=== PATIENT | male | born 1955 | race Caucasian/White ===

== ENCOUNTER 2025-02-09 15:02 | Emergency (ER) | payer MEDICARE, SELFPAY ==
--- OUTSIDE RECORDS SUMMARY | 2025-02-09 15:07 | XMS_ITS | Encounter Summary ---
Author Organization [facility] Address [address] [place] [address] Care Team Providers Care Management Supervisor Name Role Phone Aston Charles Rock DO Primary Care Provider [phone] Encounter Details Date Type Department Care Team (Late st Contact Info) Description 04/03/2023 Lab Requisition [facility] Laboratory Services [address] [place] [address] Ileana Song MD [address] [place] [address] Social History Tobacco Use Types Packs/Day Years Used Date Smoking Tobacco: Former Cigarettes Q uit: 1998 Smokeless Tobacco: Former Snuff, Chew Alcohol Use Standard Drinks/Week Comments Yes 0 (1 standard drink = 0.6 oz pur e alcohol) socially maybe once a month Sex and Gender Information Value Date Recorded Sex Assigned at Not on file Legal Sex Male 3:17 AM FINANCE LEAD Gender Identity Not on file Sexual Orientation Not on file documented as of this encounter Plan of Treatment Not on file documented as of this encounter Procedures Procedure Name Priority Date/Time Associated Diagnosis Comments DIFFERENTIAL, MANUAL Routine 04/03/2023 4:00 AM CDT CBC WITH DIFFERENTIAL Routine 04/03/2023 4:00 AM CDT COMPREHENSIVE METABOLIC PANEL Routine 04/03/2023 4:00 AM CDT documented in this encounter Results * MANUAL DIFFERENTIAL (04/03/2023 4:00 AM CDT) Pathologist [facility] PLATELET EST. Adequate 04/03/2023 7:07 AM CDT [facility] ANISOCYTOSIS 2+ /hpf 04/03/2023 7:07 AM CDT [facility] POIKILOCYTES 1+ /hpf 04/03/2023 7:07 AM CDT [facility] POLYCHROMASIA 1+ /hpf 04/03/2023 7:07 AM CDT [facility] Blood 04/03/2023 4:00 AM CDT 04/03/2023 6:35 AM CDT us Ileana Song MD HEMATOLOGY ORDERABLES COM Final Result [facility] # [id number] [address] [place] [address] * (ABNORMAL) CBC WITH DIFFERENTIAL (04/03/2023 4:00 AM CDT) Pathologist [facility] WBC 8.9 4.8 - 10.8 K/uL 04/03/2023 7:07 AM T [facility] RBC 3.57(L) 4.60 - 6.20 M/uL 04/03/2023 7:07 AM T [facility] HEMOGLOBIN 10.2(L) 14.0 - 18.0 g/dL 04/03/2023 7:07 AM T [facility] HEMATOCRIT 34.8(L) 41.0 - 53.0 % 04/03/2023 7:07 AM T [facility] MCV 97.5 84.0 - 103.0 fL 04/03/2023 7:07 AM T [facility] MCH 28.6 27.0 - 34.0 pg 04/03/2023 7:07 AM T [facility] MCHC 29.3(L) 30.0 - 35.0 g/dL 04/03/2023 7:07 AM [email or web address] RDW 20.9(H) 11.0 - 14.5 % 04/03/2023 7:07 AM [email or web address] RDW-STDEV 75.1(H) 37.0 - 54.0 fL 04/03/2023 7:07 AM [email or web address] PLATELETS 298 140 - 440 K/uL 04/03/2023 7:07 AM [email or web address] MPV 11.1 8.9 - 12.8 fL 04/03/2023 7:07 AM [email or web address] NEUTROPHILS 82(H) 42 - 75 % 04/03/2023 7:07 AM [email or web address] LYMPHOCYTES 11(L) 24 - 44 % 04/03/2023 7:07 AM [email or web address] MONOCYTES 6 2 - 10 % 04/03/2023 7:07 AM [email or web address] EOSINOPHILS 0 0 - 7 % 04/03/2023 7:07 AM [email or web address] BASOPHILS 0 0 - 1 % 04/03/2023 7:07 AM [facility] IMMATURE GRANULOCYTES 1 0 - 2 % 04/03/2023 7:07 AM [facility] NEUTROPHIL ABSOLUTE 7.23 2.00 - 8.00 K/uL 04/03/2023 7:07 AM [email or web address] LYMPHOCYTE ABSOLUTE 0.97(L) 1.20 - 4.00 K/uL 04/03/2023 7:07 AM [email or web address] MONOCYTE ABSOLUTE 0.55 0.10 - 0.60 K/uL 04/03/2023 7:07 AM [facility] EOSINOPHIL ABSOLUTE 0.00 0.00 - 0.70 K/uL 04/03/2023 7:07 AM [facility] BASOPHILS ABSOLUTE 0.01 0.00 - 0.20 K/uL 04/03/2023 7:07 AM [facility] IMMATURE GRANULOCYTES ABSOLUTE 0.09 0.00 - 0.10 K/uL 04/03/2023 7:07 AM CDT [facility] Blood 04/03/2023 4:00 AM CDT 04/03/2023 6:35 AM CDT us Ileana Song MD HEMATOLOGY ORDERABLES Final Res ult [facility] CLIA # [id number] [facility] [address] [place] [address] * (ABNORMAL) COMPREHENSIVE METABOLIC PANEL (04/03/2023 4:00 AM CDT) SODIUM 141 136 - 145 mmol/L 04/03/2023 7:14 AM T [facility] POTASSIUM 3.5 3.5 - 5.1 mmol/L 04/03/2023 7:14 AM T [facility] CHLORIDE 101 98 - 107 mmol/L 04/03/2023 7:14 AM T [facility] CO2 28 22 - 29 mmol/L 04/03/2023 7:14 AM T [facility] CALCIUM 8.1(L) 8.8 - 10.2 mg/dL 04/03/2023 7:14 AM T [facility] BUN 27(H) 8 - 23 mg/dL 04/03/2023 7:14 AM T [facility] CREATININE 0.37(L) 0.67 - 1.17 mg/dL 04/03/2023 7:14 AM T [facility] GLUCOSE 248(H) 74 - 99 mg/dL 04/03/2023 7:14 AM T [facility] TOTAL PROTEIN 5.4(L) 6.4 - 8.3 g/dL 04/03/2023 7:14 AM T [facility] ALBUMIN 2.6(L) 3.5 - 5.2 g/dL 04/03/2023 7:14 AM T [facility] BILIRUBIN TOTAL 0.3 0.2 - 1.0 mg/dL 04/03/2023 7:14 AM CDT [facility] ALKALINE PHOSPHATASE 83 40 - 129 U/L 04/03/2023 7:14 AM CDT [facility] AST 20 10 - 50 U/L 04/03/2023 7:14 AM CDT [facility] ALT 47 <=50 U/L 04/03/2023 7:14 AM CDT [facility] GFR >60 >=60 mL/min/1. 73 sq meter 04/03/2023 7:14 AM CDT [facility] Comment:eGFR calculated with 2020 CKD-EPI equation. Vegetarian diet, extremely high or low muscle mass, and may affect results. Cystatin C with Glomerular Filtration Rate is a suitable alternative for these patients. ANION GAP 12 9 - 20 mmol/L 04/03/2023 7:14 AM T [facility] Blood 04/03/2023 4:00 AM CDT 04/03/2023 6:35 AM CDT us Ileana Song MD CHEMISTRY ORDERABLES Final Resu lt [facility] CLIA # [id number] [address] [place] [address] documented in this encounter Visit Diagnoses Not on filedocumented in this encounter Additional Health Concerns Infection Onset Date Last Indicated Resolved Time R/O C. diff 04/19/2023 04/19/2023 04/19/2023 3:44 AM CDT R/O COVID-19 07/09/2024 07/09/2024 07/09/2024 5:41 PM FINANCE LEAD R/O GI Pathogen 07/09/2024 07/09/2024 07/10/2024 8 :40 AM FINANCE LEAD C Diff 07/09/2024 07/09/2024 09/13/2024 1:16 AM FINANCE LEAD Multi Drug Resistant Organis m (MDRO) Comment:MDRO sputum 07/19/24 , negative MDRO sputum 09/08/24 ls 07/19/2024 07/19/2024 2:20 PM FINANCE LEAD R/O COVID-19 08/08/2024 08/08/2024 08/08/2024 3:12 AM FINANCE LEAD R/O COVID-19 09/07/2024 09/07/2024 09/07/2024 1:57 AM FINANCE LEAD Respiratory Syncytial Virus (RSV) 09/07/2024 025 09/21/2024 1:16 AM CDT R/O Respiratory 09/25/2024 09/25/2024 09/26/2024 1 :06 AM CDT Respiratory Syncytial Virus (RSV) 09/25/2024 025 10/17/2024 1:16 AM CDT [facility] Resistant Organis m (MDRO) Comment:10/03/24: Sputum (Pseudomonas aeruginosa) 10/03/2024 10/03/2024 PALEONTOLOGY TEACHER Comment:10/03/24: Sputum (Pseudomonas aeruginosa) 10/03/2024 10/07/2024 R/O Respiratory 11/28/2024 11/28/2024 11/28/2024 7 :05 AM CDT Respiratory Syncytial Virus (RSV) 11/28/2024 025 12/12/2024 1:16 AM CDT R/O GI Pathogen 12/13/2024 12/13/2024 12/14/2024 1 2:34 AM CDT documented as of this encounter Care Teams Management Supervisor Relationship Specialty Start Date End Date Charles Clancy DO [address] [place] [phone] PCP - General Family Practice 11/07/24 documented as of this encounter
--- OUTSIDE RECORDS SUMMARY | 2025-02-09 15:07 | XMS_ITS | Encounter Summary ---
Author Organization [facility] Address [address] [place] [address] Care Team Providers Care Environmental Health Manager Name Role Phone Charles Clancy DO Primary Care Provider [phone] Encounter Details Date Type Department Care Team (Late st Contact Info) Description 10/17/2024 Lab Requisition [facility] Laboratory Services [address] [place] [address] Hamilton Sheffield DO [address] [place] [address] Social History Tobacco Use Types Packs/Day Years Used Date Smoking Tobacco: Former Cigarettes 1 26 Q uit: 1998 Passive Smoke Exposure: Past Smokeless Tobacco: Former Snuff, Chew Quit: 1998 Alcohol Use Standard Drinks/Week Comments Not Currently 0 (1 standard drink = 0.6 oz pur e alcohol) socially maybe once a month Sex and Gender Information Value Date Recorded Sex Assigned at Not on file Legal Sex Male 3:17 AM TREATMENT TECHNICIAN Gender Identity Not on file Sexual Orientation Not on file documented as of this encounter Plan of Treatment Not on file documented as of this encounter Procedures Procedure Name Priority Date/Time Associated Diagnosis Comments CBC WITH DIFFERENTIAL Routine 10/17/2024 2:55 AM CDT COMPREHENSIVE METABOLIC PANEL Routine 10/17/2024 2:55 AM CDT documented in this encounter Results * (ABNORMAL) COMPREHENSIVE METABOLIC PANEL (10/17/2024 2:55 AM [facility] SODIUM 140 136 - 145 mmol/L 10/17/2024 6:49 AM [facility] POTASSIUM 4.1 3.5 - 5.1 mmol/L 10/17/2024 6:49 AM [facility] CHLORIDE 101 98 - 107 mmol/L 10/17/2024 6:49 AM [facility] CO2 27 22 - 29 mmol/L 10/17/2024 6:49 AM [facility] CALCIUM 9.6 8.8 - 10.2 mg/dL 10/17/2024 6:49 AM [facility] BUN 34(H) 8 - 23 mg/dL 10/17/2024 6:49 AM [facility] CREATININE 0.36(L) 0.67 - 1.17 mg/dL 10/17/2024 6:49 AM [facility] GLUCOSE 137(H) 74 - 99 mg/dL 10/17/2024 6:49 AM [facility] TOTAL PROTEIN 6.6 6.4 - 8.3 g/dL 10/17/2024 6:49 AM [facility] ALBUMIN 3.8 3.5 - 5.2 g/dL 10/17/2024 6:49 AM [facility] BILIRUBIN TOTAL 0.4 0.2 - 1.0 mg/dL 10/17/2024 6:49 AM [facility] ALKALINE PHOSPHATASE 97 40 - 129 U/L 10/17/2024 6:49 AM [facility] AST 25 10 - 50 U/L 10/17/2024 6:49 AM [facility] ALT 42 <=50 U/L 10/17/2024 6:49 AM [facility] GFR >60 >=60 mL/min/1. 73 sq meter 10/17/2024 6:49 AM [facility] Comment:eGFR calculated with 2020 CKD-EPI equation. Vegetarian diet, extremely high or low muscle mass, and may affect results. Cystatin C with Glomerular Filtration Rate is a suitable alternative for these patients. ANION GAP 12 9 - 20 mmol/L 10/17/2024 6:49 AM T [facility] Blood Collection / Unknown 10/17/2024 2:55 AM CDT 10/17/2024 5:49 AM CDT Hamilton Sheffield DO CHEMISTRY ORDERABLES Final R esult [facility] CLIA # [id number] [address] [place] [address] * (ABNORMAL) CBC WITH DIFFERENTIAL (10/17/2024 2:55 AM CDT) WBC 8.0 4.8 - 10.8 K/uL 10/17/2024 6:19 AM T [facility] RBC 5.19 4.60 - 6.20 M/uL 10/17/2024 6:19 AM T [facility] HEMOGLOBIN 13.6(L) 14.0 - 18.0 g/dL 10/17/2024 6:19 AM T [facility] HEMATOCRIT 45.0 41.0 - 53.0 % 10/17/2024 6:19 AM [facility] MCV 86.7 84.0 - 103.0 fL 10/17/2024 6:19 AM T [facility] MCH 26.2(L) 27.0 - 34.0 pg 10/17/2024 6:19 AM T [facility] MCHC 30.2 30.0 - 35.0 g/dL 10/17/2024 6:19 AM T [facility] PLATELETS 173 140 - 440 K/uL 10/17/2024 6:19 AM T [facility] MPV 12.8 8.9 - 12.8 fL 10/17/2024 6:19 AM [facility] RDW 17.6(H) 11.0 - 14.5 % 10/17/2024 6:19 AM [facility] RDW-STDEV 55.8(H) 37.0 - 54.0 fL 10/17/2024 6:19 AM T [facility] NEUTROPHILS 66 42 - 75 % 10/17/2024 6:19 AM [facility] LYMPHOCYTES 20(L) 24 - 44 % 10/17/2024 6:19 AM T [facility] MONOCYTES 10 2 - 10 % 10/17/2024 6:19 AM [facility] EOSINOPHILS 3 0 - 7 % 10/17/2024 6:19 AM [facility] BASOPHILS 1 0 - 1 % 10/17/2024 6:19 AM [facility] IMMATURE GRANULOCYTES 1 0 - 2 % 10/17/2024 6:19 AM [facility] NEUTROPHIL ABSOLUTE 5.25 2.00 - 8.00 K/uL 10/17/2024 6:19 AM [facility] LYMPHOCYTE ABSOLUTE 1.61 1.20 - 4.00 K/uL 10/17/2024 6:19 AM [facility] MONOCYTE ABSOLUTE 0.79(H) 0.10 - 0.60 K/uL 10/17/2024 6:19 AM [facility] EOSINOPHIL ABSOLUTE 0.24 0.00 - 0.70 K/uL 10/17/2024 6:19 AM [facility] BASOPHILS ABSOLUTE 0.06 0.00 - 0.20 K/uL 10/17/2024 6:19 AM [facility] IMMATURE GRANULOCYTES ABSOLUTE 0.06 0.00 - 0.10 K/uL 10/17/2024 6:19 AM [facility] SMEAR REVIEWED: NA - Not Applicable 10/17/2024 6:19 AM [facility] Blood Collection / Unknown 10/17/2024 2:55 AM CDT 10/17/2024 5:49 AM CDT us Hamilton Sheffield DO HEMATOLOGY ORDERABLES Final Result [facility] CLIA # [id number] [address] [facility] [place] [address] documented in this encounter Visit Diagnoses Not on filedocumented in this encounter Additional Health Concerns Infection Onset Date Last Indicated Resolved Time Respiratory Syncytial Virus (RSV) 09/25/2024 025 10/17/2024 1:16 AM CDT [facility] Resistant [facility] m (MDRO) Comment:10/03/24: Sputum (Pseudomonas aeruginosa) 10/03/2024 10/03/2024 TELEGRAPH PLANT MAINTAINER Comment:10/03/24: Sputum (Pseudomonas aeruginosa) 10/03/2024 10/07/2024 R/O Respiratory 11/28/2024 11/28/2024 11/28/2024 7 :05 AM CDT Respiratory Syncytial Virus (RSV) 11/28/2024 025 12/12/2024 1:16 AM CDT R/O GI Pathogen 12/13/2024 12/13/2024 12/14/2024 1 2:34 AM CDT documented as of this encounter Care Teams Environmental Health Manager Relationship Specialty Start Date End Date Charles Clancy DO [address] [place] [address] PCP - General Family Practice 11/07/24 documented as of this encounter
--- OUTSIDE RECORDS SUMMARY | 2025-02-09 15:07 | XMS_ITS | Encounter Summary ---
Author Organization [facility] Address [address] [place] [address] Care Team Providers Care Fruit Sprayer Name Role Phone Aston Charles Rock DO Primary Care Provider [phone] Encounter Details Date Type Department Care Team (Late st Contact Info) Description 03/28/[address] [facility] Laboratory Services [address] [place] [address] [place] [address] Ileana Song MD [address] [place] [address] Social History Tobacco Use Types Packs/Day Years Used Date Smoking Tobacco: Former Cigarettes Q uit: 1998 Smokeless Tobacco: Former Snuff, Chew Alcohol Use Standard Drinks/Week Comments Yes 0 (1 standard drink = 0.6 oz pur e alcohol) socially maybe once a month Sex and Gender Information Value Date Recorded Sex Assigned at Not on file Legal Sex Male 3:17 AM HOME STEREO EQUIPMENT INSTALLER Gender Identity Not on file Sexual Orientation Not on file documented as of this encounter Plan of Treatment Not on file documented as of this encounter Procedures Procedure Name Priority Date/Time Associated Diagnosis Comments SODIUM LEVEL Stat 03/28/2023 4:05 AM CDT documented in this encounter Results * (ABNORMAL) SODIUM LEVEL (03/28/2023 4:05 AM CDT) SODIUM 153(H) 136 - 145 mmol/L 03/28/2023 6:08 AM CDT [facility] Blood Collection / Unknown 03/28/2023 4:05 AM CDT 03/28/2023 5:42 AM CDT Ileana Song MD CHEMISTRY ORDERABLES Final Resu lt [facility] CLIA # [id number] [facility] [address] [place] [address] documented in this encounter Visit Diagnoses Not on filedocumented in this encounter Additional Health Concerns Infection Onset Date Last Indicated Resolved Time R/O C. diff 04/19/2023 04/19/2023 04/19/2023 3:44 AM CDT R/O COVID-19 07/09/2024 07/09/2024 07/09/2024 5:41 PM HOME STEREO EQUIPMENT INSTALLER R/O GI Pathogen 07/09/2024 07/09/2024 07/10/2024 8 :40 AM HOME STEREO EQUIPMENT INSTALLER C Diff 07/09/2024 07/09/2024 09/13/2024 1:16 AM HOME STEREO EQUIPMENT INSTALLER Multi Drug Resistant Organis m (MDRO) Comment:MDRO sputum 07/19/24 , negative MDRO sputum 09/08/24 ls 07/19/2024 07/19/2024 2:20 PM HOME STEREO EQUIPMENT INSTALLER R/O COVID-19 08/08/2024 08/08/2024 08/08/2024 3:12 AM HOME STEREO EQUIPMENT INSTALLER R/O COVID-19 09/07/2024 09/07/2024 09/07/2024 1:57 AM HOME STEREO EQUIPMENT INSTALLER Respiratory Syncytial Virus (RSV) 09/07/2024 025 09/21/2024 1:16 AM CDT R/O Respiratory 09/25/2024 09/25/2024 09/26/2024 1 :06 AM CDT Respiratory Syncytial Virus (RSV) 09/25/2024 025 10/17/2024 1:16 AM CDT [facility] Resistant [facility]is m (MDRO) Comment:10/03/24: Sputum (Pseudomonas aeruginosa) 10/03/2024 10/03/2024 GLOBAL ACCOUNT MANAGER Comment:10/03/24: Sputum (Pseudomonas aeruginosa) 10/03/2024 10/07/2024 R/O Respiratory 11/28/2024 11/28/2024 11/28/2024 7 :05 AM CDT Respiratory Syncytial Virus (RSV) 11/28/2024 025 12/12/2024 1:16 AM CDT R/O GI Pathogen 12/13/2024 12/13/2024 12/14/2024 1 2:34 AM CDT documented as of this encounter Care Teams Fruit Sprayer Relationship Specialty Start Date End Date Charles Clancy DO [address] [place] [phone] PCP - General Family Practice 11/07/24 documented as of this encounter
--- OUTSIDE RECORDS SUMMARY | 2025-02-09 15:07 | XMS_ITS | Encounter Summary ---
Author Organization [facility] Address [address] [place] [address] Care Team Providers Care Information Technology Architect Name Role Phone Aston Charles Rock DO Primary Care Provider Encounter Details Date Type Department Care Team (Late st Contact Info) Description 04/03/2023 Lab Requisition [facility] Laboratory Services [address] [place] [address] [place] [address] Ileana Song MD [address] [place] [address] Social History Tobacco Use Types Packs/Day Years Used Date Smoking Tobacco: Former Cigarettes Q uit: 1998 Smokeless Tobacco: Former Snuff, Chew Alcohol Use Standard Drinks/Week Comments Yes 0 (1 standard drink = 0.6 oz pur e alcohol) socially maybe once a month Sex and Gender Information Value Date Recorded Sex Assigned at Not on file Legal Sex Male 3:17 AM REPATCHER Gender Identity Not on file Sexual Orientation Not on file documented as of this encounter Plan of Treatment Not on file documented as of this encounter Procedures Procedure Name Priority Date/Time Associated Diagnosis Comments LACTIC ACID Stat 04/03/2023 8:30 PM CDT documented in this encounter Results * LACTIC ACID (04/03/2023 8:30 PM CDT) LACTIC ACID 1.9 <=2.0 mmol/L 04/03/2023 9:02 PM CDT [facility] [employer] [facility] Blood Collection / Unknown 04/03/2023 8:30 PM CDT 04/03/2023 8:40 PM CDT Ileana Song MD CHEMISTRY ORDERABLES Final Resu lt [facility] CLIA # [id number] [facility] [address] [address] [place] [address] documented in this encounter Visit Diagnoses Not on filedocumented in this encounter Additional Health Concerns Infection Onset Date Last Indicated Resolved Time R/O C. diff 04/19/2023 04/19/2023 04/19/2023 3:44 AM CDT R/O COVID-19 07/09/2024 07/09/2024 07/09/2024 5:41 PM REPATCHER R/O GI Pathogen 07/09/2024 07/09/2024 07/10/2024 8 :40 AM REPATCHER C Diff 07/09/2024 07/09/2024 09/13/2024 1:16 AM REPATCHER Multi Drug Resistant Organis m (MDRO) Comment:MDRO sputum 07/19/24 , negative MDRO sputum 09/08/24 ls 07/19/2024 07/19/2024 2:20 PM REPATCHER R/O COVID-19 08/08/2024 08/08/2024 08/08/2024 3:12 AM REPATCHER R/O COVID-19 09/07/2024 09/07/2024 09/07/2024 1:57 AM REPATCHER Respiratory Syncytial Virus (RSV) 09/07/2024 025 09/21/2024 1:16 AM CDT R/O Respiratory 09/25/2024 09/25/2024 09/26/2024 1 :06 AM CDT Respiratory Syncytial Virus (RSV) 09/25/2024 025 10/17/2024 1:16 AM CDT [facility]istant [facility] m (MDRO) Comment:10/03/24: Sputum (Pseudomonas aeruginosa) 10/03/2024 10/03/2024 SALES AGENT FOOD VENDING SERVICE Comment:10/03/24: Sputum (Pseudomonas aeruginosa) 10/03/2024 10/07/2024 R/O Respiratory 11/28/2024 11/28/2024 11/28/2024 7 :05 AM CDT Respiratory Syncytial Virus (RSV) 11/28/2024 025 12/12/2024 1:16 AM CDT R/O GI Pathogen 12/13/2024 12/13/2024 12/14/2024 1 2:34 AM CDT documented as of this encounter Care Teams Information Technology Architect Relationship Specialty Start Date End Date Charles Clancy DO [address] [place] [phone] PCP - General Family Practice 11/07/24 documented as of this encounter
--- OUTSIDE RECORDS SUMMARY | 2025-02-09 15:07 | XMS_ITS | Encounter Summary ---
Author Organization [facility] Address [address] [place] [address] Care Team Providers Care Collator Hand Name Role Phone [place] DO Primary Care Provider [phone] Encounter Details Date Type Department Care Team (Late st Contact Info) Description 04/03/2023 Lab Requisition [facility] Laboratory Services [address] [place] [address] [facility], External Provider [address] [place] [address] Social History Tobacco Use Types Packs/Day Years Used Date Smoking Tobacco: Former Cigarettes Q uit: 1998 Smokeless Tobacco: Former Snuff, Chew Alcohol Use Standard Drinks/Week Comments Yes 0 (1 standard drink = 0.6 oz pur e alcohol) socially maybe once a month Sex and Gender Information Value Date Recorded Sex Assigned at Not on file Legal Sex Male 3:17 AM ORACLE FUSION DEVELOPER Gender Identity Not on file Sexual Orientation Not on file documented as of this encounter Plan of Treatment Not on file documented as of this encounter Procedures Procedure Name Priority Date/Time Associated Diagnosis Comments EXTRA TUBE (URINE CALDERON) Routine 04/03/2023 3:30 PM CDT URINALYSIS WITH REFLEX CULTURE Routine 04/03/2023 3:30 PM CDT documented in this encounter Results * EXTRA TUBE (URINE CALDERON) (04/03/2023 3:30 PM CDT) Urine URINE SPECIMEN OBTAINED BY CLEAN CATCH PROCEDURE / Unknown Collection / Unknown 04/03/2023 3:30 PM CDT 04/03/2023 8:33 PM CDT us External Provider [facility] URINE ORDERABLES Final Res ult [facility] CLIA # [id number] Critical access hospital5 [address] [address] * (ABNORMAL) URINALYSIS WITH REFLEX CULTURE (04/03/2023 3:30 PM CDT) COLOR UA Yellow Pale to Dark Yellow 04/03/2023 9:02 PM CDT [facility] CLARITY UA Clear Clear 04/03/2023 9:02 PM CDT [facility] SPECIFIC GRAVITY UA 1.034 1.003 - 1.035 04/03/2023 9:02 PM T [facility] PH UA 5.5 5.0 - 8.0 04/03/2023 9:02 PM CDT [facility] LEUKOCYTE ESTERASE UA Negative Negative 04/03/2023 9:02 PM T [facility] NITRITE UA Negative Negative 04/03/2023 9:02 PM T [facility] PROTEIN UA 1+(A) Negative 04/03/2023 9:02 PM T [facility] GLUCOSE UA 4+(A) Negative 04/03/2023 9:02 PM T [facility] KETONES UA Negative Negative 04/03/2023 9:02 PM T [facility] UROBILINOGEN UA <2.0 <2.0 mg/dL 9:02 PM CDT [facility] BILIRUBIN UA Negative Negative 04/03/2023 9:02 PM T [facility] BLOOD UA Negative Negative 04/03/2023 9:02 PM T [facility] WBC UA 3-5(A) 0 - 2 /hpf 04/03/2023 9:02 PM CDT [facility] RBC UA 6-10(A) 0 - 2 /hpf 04/03/2023 9:02 PM CDT [facility] BACTERIA UA Negative Negative /hpf 04/03/2023 9:02 PM CDT [facility] EPITHELIAL CELLS, URINE 0-5 0 - 5 /hpf 04/03/2023 9:02 PM CDT [facility] Urine URINE SPECIMEN OBTAINED BY CLEAN CATCH PROCEDURE / Unknown Collection / Unknown 04/03/2023 3:30 PM CDT 04/03/2023 8:33 PM CDT us External Provider [facility] URINE ORDERABLES Final Res ult [facility] CLIA # [id number] Critical access hospital5 [address] [address] documented in this encounter Visit Diagnoses Not on filedocumented in this encounter Additional Health Concerns Infection Onset Date Last Indicated Resolved Time R/O C. diff 04/19/2023 04/19/2023 04/19/2023 3:44 AM CDT R/O COVID-19 07/09/2024 07/09/2024 07/09/2024 5:41 PM ORACLE FUSION DEVELOPER R/O GI Pathogen 07/09/2024 07/09/2024 07/10/2024 8 :40 AM ORACLE FUSION DEVELOPER C Diff 07/09/2024 07/09/2024 09/13/2024 1:16 AM ORACLE FUSION DEVELOPER Multi [facility] Resistant Organis m (MDRO) Comment:MDRO sputum 07/19/24 , negative MDRO sputum 09/08/24 ls 07/19/2024 07/19/2024 2:20 PM ORACLE FUSION DEVELOPER R/O COVID-19 08/08/2024 08/08/2024 08/08/2024 3:12 AM ORACLE FUSION DEVELOPER R/O COVID-19 09/07/2024 09/07/2024 09/07/2024 1:57 AM ORACLE FUSION DEVELOPER Respiratory Syncytial Virus (RSV) 09/07/2024 025 09/21/2024 1:16 AM CDT R/O Respiratory 09/25/2024 09/25/2024 09/26/2024 1 :06 AM CDT Respiratory Syncytial Virus (RSV) 09/25/2024 025 10/17/2024 1:16 AM CDT [facility] Resistant [facility]is m (MDRO) Comment:10/03/24: Sputum (Pseudomonas aeruginosa) 10/03/2024 10/03/2024 ROLLS BAKER Comment:10/03/24: Sputum (Pseudomonas aeruginosa) 10/03/2024 10/07/2024 R/O Respiratory 11/28/2024 11/28/2024 11/28/2024 7 :05 AM CDT Respiratory Syncytial Virus (RSV) 11/28/2024 025 12/12/2024 1:16 AM CDT R/O GI Pathogen 12/13/2024 12/13/2024 12/14/2024 1 2:34 AM CDT documented as of this encounter Care Teams Collator Hand Relationship Specialty Start Date End Date Charles Clancy DO [address] [place] [address] PCP - General Family Practice 11/07/24 documented as of this encounter
--- OUTSIDE RECORDS SUMMARY | 2025-02-09 15:07 | XMS_ITS | Encounter Summary ---
Author Organization [facility] Address [address] [place] [address] Care Team Providers Care Spa Coordinator Name Role Phone ClancyCharles DO Primary Care Provider [phone] Encounter Details Date Type Department Care Team (Late st Contact Info) Description 03/25/2023 Lab Requisition [facility] Laboratory Services [address] [place] [phone] Mark Sheffield MD [address] [place] [address] Social History Tobacco Use Types Packs/Day Years Used Date Smoking Tobacco: Former Cigarettes Q uit: 1998 Smokeless Tobacco: Former Snuff, Chew Alcohol Use Standard Drinks/Week Comments Yes 0 (1 standard drink = 0.6 oz pur e alcohol) socially maybe once a month Sex and Gender Information Value Date Recorded Sex Assigned at Not on file 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 Gender Identity Not on file Sexual Orientation Not on file documented as of this encounter Plan of Treatment Not on file documented as of this encounter Procedures Procedure Name Priority Date/Time Associated Diagnosis Comments DIFFERENTIAL, MANUAL Routine 03/25/2023 4:55 AM CDT CBC WITH DIFFERENTIAL Routine 03/25/2023 4:55 AM CDT PHOSPHORUS Routine 03/25/2023 4:55 AM CDT MAGNESIUM LEVEL Routine 03/25/2023 4:55 AM CDT COMPREHENSIVE METABOLIC PANEL Routine 03/25/2023 4:55 AM CDT documented in this encounter Results * MANUAL DIFFERENTIAL (03/25/2023 4:55 AM CDT) [facility] PLATELET EST. Decreased 03/25/2023 5:45 AM CDT [facility] ANISOCYTOSIS 2+ /hpf 03/25/2023 5:45 AM CDT [facility] POIKILOCYTES 1+ /hpf 03/25/2023 5:45 AM CDT [facility] POLYCHROMASIA 1+ /hpf 03/25/2023 5:45 AM CDT [facility] Blood Collection / Unknown 03/25/2023 4:55 AM CDT 03/25/2023 5:13 AM CDT us Mark Sheffield MD HEMATOLOGY ORDERABLES COM Final Result [facility] CLIA # [id number] [address] [place] [address] [place], [place] [address] * (ABNORMAL) CBC WITH DIFFERENTIAL (03/25/2023 4:55 AM CDT) [facility] WBC 4.1(L) 4.8 - 10.8 K/uL 03/25/2023 5:45 AM CDT [facility] NRBCS 1(H) <1 % 03/25/2023 5:45 AM CDT [facility] RBC 3.20(L) 4.60 - 6.20 M/uL 03/25/2023 5:45 AM CDT [facility] HEMOGLOBIN 9.2(L) 14.0 - 18.0 g/dL 03/25/2023 5:45 AM CDT [facility] HEMATOCRIT 32.0(L) 41.0 - 53.0 % 03/25/2023 5:45 AM [facility] MCV 100.0 84.0 - 103.0 fL 03/25/2023 5:45 AM [facility] MCH 28.8 27.0 - 34.0 pg 03/25/2023 5:45 AM [facility] MCHC 28.8(L) 30.0 - 35.0 g/dL 03/25/2023 5:45 AM [facility] RDW 23.2(H) 11.0 - 14.5 % 03/25/2023 5:45 AM [facility] RDW-STDEV 82.4(H) 37.0 - 54.0 fL 03/25/2023 5:45 AM [facility] PLATELETS 67(L) 140 - 440 K/uL 03/25/2023 5:45 AM [facility] MPV 11.5 8.9 - 12.8 fL 03/25/2023 5:45 AM [facility] [employer] [facility] NEUTROPHILS 85(H) 42 - 75 % 03/25/2023 5:45 AM [facility] LYMPHOCYTES 10(L) 24 - 44 % 03/25/2023 5:45 AM [facility] MONOCYTES 4 2 - 10 % 03/25/2023 5:45 AM [facility] [employer] [facility] EOSINOPHILS 0 0 - 7 % 03/25/2023 5:45 AM [facility] [employer] [facility] BASOPHILS 0 0 - 1 % 03/25/2023 5:45 AM [facility] IMMATURE GRANULOCYTES 1 0 - 2 % 03/25/2023 5:45 AM [facility] NEUTROPHIL ABSOLUTE 3.52 2.00 - 8.00 K/uL 03/25/2023 5:45 AM [facility] LYMPHOCYTE ABSOLUTE 0.42(L) 1.20 - 4.00 K/uL 03/25/2023 5:45 AM [facility] MONOCYTE ABSOLUTE 0.15 0.10 - 0.60 K/uL 03/25/2023 5:45 AM CDT [facility] EOSINOPHIL ABSOLUTE 0.01 0.00 - 0.70 K/uL 03/25/2023 5:45 AM CDT [facility] BASOPHILS ABSOLUTE 0.01 0.00 - 0.20 K/uL 03/25/2023 5:45 AM CDT [facility] IMMATURE GRANULOCYTES ABSOLUTE 0.03 0.00 - 0.10 K/uL 03/25/2023 5:45 AM CDT [facility] Blood Collection / Unknown 03/25/2023 4:55 AM CDT 03/25/2023 5:13 AM CDT Mark Sheffield MD HEMATOLOGY ORDERABLES Fin al Result Performing Organization Address [facility] Co de Phone Number [facility] CLIA # [id number] [address] [address] * (ABNORMAL) MAGNESIUM LEVEL (03/25/2023 4:55 AM CDT) MAGNESIUM 2.6(H) 1.6 - 2.4 mg/dL 03/25/2023 5:50 AM CDT [facility] Blood Collection / Unknown 03/25/2023 4:55 AM CDT 03/25/2023 5:13 AM CDT us Mark Sheffield MD CHEMISTRY ORDERABLES Saundra l Result Performing Organization Address [facility]/ZIP Co de Phone Number [facility] CLIA # [id number] [address] [place] [address] * PHOSPHORUS (03/25/2023 4:55 AM CDT) PHOSPHORUS 3.4 2.5 - 4.5 mg/dL 03/25/2023 5:50 AM CDT [facility] Blood Collection / Unknown 03/25/2023 4:55 AM CDT 03/25/2023 5:13 AM CDT us Mark Sheffield MD CHEMISTRY ORDERABLES Saundra dominguez Result [facility] CLIA # [id number] [address] [place] [address] [place] [address] * (ABNORMAL) COMPREHENSIVE METABOLIC PANEL (03/25/2023 4:55 AM CDT) SODIUM 156(H) 136 - 145 mmol/L 03/25/2023 5:50 AM CDT [facility] POTASSIUM 3.6 3.5 - 5.1 mmol/L 03/25/2023 5:50 AM CDT [facility] CHLORIDE 124(H) 98 - 107 mmol/L 03/25/2023 5:50 AM T [facility] CO2 23 22 - 29 mmol/L 03/25/2023 5:50 AM T [facility] CALCIUM 8.4(L) 8.8 - 10.2 mg/dL 03/25/2023 5:50 AM T [facility] BUN 30(H) 8 - 23 mg/dL 03/25/2023 5:50 AM T [facility] CREATININE 0.49(L) 0.67 - 1.17 mg/dL 03/25/2023 5:50 AM T [facility] GLUCOSE 182(H) 74 - 99 mg/dL 03/25/2023 5:50 AM T [facility] TOTAL PROTEIN 5.8(L) 6.4 - 8.3 g/dL 03/25/2023 5:50 AM T [facility] ALBUMIN 2.7(L) 3.5 - 5.2 g/dL 03/25/2023 5:50 AM CDT [facility] TOTAL 0.7 0.2 - 1.0 mg/dL 03/25/2023 5:50 AM CDT [facility] ALKALINE PHOSPHATASE 93 40 - 129 U/L 03/25/2023 5:50 AM CDT [facility] AST 67(H) 10 - 50 U/L 03/25/2023 5:50 AM CDT [facility] ALT 139(H) <=50 U/L 03/25/2023 5:50 AM CDT [facility] GFR >60 >=60 mL/min/1. 73 sq meter 03/25/2023 5:50 AM CDT [facility] Comment:eGFR calculated with 2020 CKD-EPI equation. Vegetarian diet, extremely high or low muscle mass, and may affect results. Cystatin C with Glomerular Filtration Rate is a suitable alternative for these patients. ANION GAP 9 9 - 20 mmol/L 03/25/2023 5:50 AM T [facility] Blood Collection / Unknown 03/25/2023 4:55 AM CDT 03/25/2023 5:13 AM CDT us Mark Sheffield MD CHEMISTRY ORDERABLES Saundra l Result [facility] CLIA # [id number] [address] [place] [id number] documented in this encounter Visit Diagnoses Not on filedocumented in this encounter Additional Health Concerns Infection Onset Date Last Indicated Resolved Time R/O C. diff 04/19/2023 04/19/2023 04/19/2023 3:44 AM CDT R/O COVID-19 07/09/2024 07/09/2024 07/09/2024 5:41 PM EDGE BURNISHER R/O GI Pathogen 07/09/2024 07/09/2024 07/10/2024 8 :40 AM EDGE BURNISHER C Diff 07/09/2024 07/09/2024 09/13/2024 1:16 AM EDGE BURNISHER Multi Drug Resistant Organis m (MDRO) Comment:MDRO sputum 07/19/24 , negative MDRO sputum 09/08/24 ls 07/19/2024 07/19/2024 2:20 PM EDGE BURNISHER R/O COVID-19 08/08/2024 08/08/2024 08/08/2024 3:12 AM EDGE BURNISHER R/O COVID-19 09/07/2024 09/07/2024 09/07/2024 1:57 AM EDGE BURNISHER Respiratory Syncytial Virus (RSV) 09/07/2024 025 09/21/2024 1:16 AM CDT R/O Respiratory 09/25/2024 09/25/2024 09/26/2024 1 :06 AM CDT Respiratory Syncytial Virus (RSV) 09/25/2024 025 10/17/2024 1:16 AM CDT [facility]istant [facility] m (MDRO) Comment:10/03/24: Sputum (Pseudomonas aeruginosa) 10/03/2024 10/03/2024 SOFT IRON INSPECTOR Comment:10/03/24: Sputum (Pseudomonas aeruginosa) 10/03/2024 10/07/2024 R/O Respiratory 11/28/2024 11/28/2024 11/28/2024 7 :05 AM CDT Respiratory Syncytial Virus (RSV) 11/28/2024 025 12/12/2024 1:16 AM CDT R/O GI Pathogen 12/13/2024 12/13/2024 12/14/2024 1 2:34 AM CDT documented as of this encounter Care Teams Spa Coordinator Relationship Specialty Start Date End Date Charles Clancy DO [address] [place] [address] PCP - General Family Practice 11/07/24 documented as of this encounter
--- OUTSIDE RECORDS SUMMARY | 2025-02-09 15:07 | XMS_ITS | Encounter Summary ---
Author Organization [facility] Address 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 Gender Identity Not on file Sexual Orientation Not on file documented as of this encounter Plan of Treatment Not on file documented as of this encounter Procedures Procedure Name Priority Date/Time Associated Diagnosis Comments TSH REFLEXIVE Routine 10/09/2024 4:00 AM CDT CBC WITH DIFFERENTIAL Routine 10/09/2024 4:00 AM CDT HEMOGLOBIN A1C Routine 10/09/2024 4:00 AM CDT COMPREHENSIVE METABOLIC PANEL Routine 10/09/2024 4:00 AM CDT documented in this encounter Results * (ABNORMAL) HEMOGLOBIN A1C (10/09/2024 4:00 AM CDT) Pathologist [facility] HEMOGLOBIN A1C 6.0(H) <=5.6 % 10/10/2024 10:54 AM CDT [facility] EST. AVG GLUCOSE, A1C 126 mg/dL 10/10/2024 10:54 AM CDT [facility] Blood Collection / Unknown 10/09/2024 4:00 AM CDT 10/09/2024 5:22 AM CDT Narrative [facility] - 10/10/2024 10:54 AM CDT HGB A1C INTERPRETATION NORMAL: <5.7% PRE-DIABETES: 5.7 - 6.4% DIABETES: 6.5% OR GREATER Hamilton Sheffield DO CHEMISTRY ORDERABLES Final R esult [facility] CLIA # [id number] [address] [place] [address] * (ABNORMAL) CBC WITH DIFFERENTIAL (10/09/2024 4:00 AM CDT) [facility] WBC 11.3(H) 4.8 - 10.8 K/uL 10/09/2024 5:34 AM CDT [facility] RBC 5.44 4.60 - 6.20 M/uL 10/09/2024 5:34 AM CDT [facility] HEMOGLOBIN 14.3 14.0 - 18.0 g/dL 10/09/2024 5:34 AM CDT [facility] HEMATOCRIT 47.6 41.0 - 53.0 % 10/09/2024 5:34 AM CDT [facility] MCV 87.5 84.0 - 103.0 fL 10/09/2024 5:34 AM CDT [facility] MCH 26.3(L) 27.0 - 34.0 pg 10/09/2024 5:34 AM [facility] MCHC 30.0 30.0 - 35.0 g/dL 10/09/2024 5:34 AM [facility] PLATELETS 221 140 - 440 K/uL 10/09/2024 5:34 AM [facility] MPV 11.7 8.9 - 12.8 fL 10/09/2024 5:34 AM [facility] RDW 19.2(H) 11.0 - 14.5 % 10/09/2024 5:34 AM [facility] RDW-STDEV 58.1(H) 37.0 - 54.0 fL 10/09/2024 5:34 AM [facility] NEUTROPHILS 71 42 - 75 % 10/09/2024 5:34 AM [facility] LYMPHOCYTES 16(L) 24 - 44 % 10/09/2024 5:34 AM [facility] MONOCYTES 8 2 - 10 % 10/09/2024 5:34 AM [facility] EOSINOPHILS 3 0 - 7 % 10/09/2024 5:34 AM [facility] BASOPHILS 1 0 - 1 % 10/09/2024 5:34 AM [facility] IMMATURE GRANULOCYTES 2 0 - 2 % 10/09/2024 5:34 AM [facility] NEUTROPHIL ABSOLUTE 8.01(H) 2.00 - 8.00 K/uL 10/09/2024 5:34 AM [facility] LYMPHOCYTE ABSOLUTE 1.75 1.20 - 4.00 K/uL 10/09/2024 5:34 AM [facility] MONOCYTE ABSOLUTE 0.89(H) 0.10 - 0.60 K/uL 10/09/2024 5:34 AM [facility] EOSINOPHIL ABSOLUTE 0.33 0.00 - 0.70 K/uL 10/09/2024 5:34 AM CDT [facility] BASOPHILS ABSOLUTE 0.07 0.00 - 0.20 K/uL 10/09/2024 5:34 AM CDT [facility] IMMATURE GRANULOCYTES ABSOLUTE 0.20(H) 0.00 - 0.10 K/uL 10/09/2024 5:34 AM T [facility] SMEAR REVIEWED: NN - No Action Needed 10/09/2024 5:34 AM T [facility] Blood Collection / Unknown 10/09/2024 4:00 AM CDT 10/09/2024 5:22 AM CDT us Hamilton Sheffield DO HEMATOLOGY ORDERABLES Final Result [facility] CLIA # [id number] [address] [place] [address] * (ABNORMAL) COMPREHENSIVE METABOLIC PANEL (10/09/2024 4:00 AM CDT) SODIUM 144 136 - 145 mmol/L 10/09/2024 6:23 AM [facility] POTASSIUM 3.6 3.5 - 5.1 mmol/L 10/09/2024 6:23 AM [facility] CHLORIDE 105 98 - 107 mmol/L 10/09/2024 6:23 AM [facility] CO2 26 22 - 29 mmol/L 10/09/2024 6:23 AM T [facility] CALCIUM 9.8 8.8 - 10.2 mg/dL 10/09/2024 6:23 AM T [facility] BUN 33(H) 8 - 23 mg/dL 10/09/2024 6:23 AM T [facility] CREATININE 0.42(L) 0.67 - 1.17 mg/dL 10/09/2024 6:23 AM T [facility] GLUCOSE 172(H) 74 - 99 mg/dL 10/09/2024 6:23 AM [facility] TOTAL PROTEIN 7.0 6.4 - 8.3 g/dL 10/09/2024 6:23 AM [facility] ALBUMIN 3.8 3.5 - 5.2 g/dL 10/09/2024 6:23 AM [facility] BILIRUBIN TOTAL 0.3 0.2 - 1.0 mg/dL 10/09/2024 6:23 AM [facility] ALKALINE PHOSPHATASE 113 40 - 129 U/L 10/09/2024 6:23 AM [facility] AST 46 10 - 50 U/L 10/09/2024 6:23 AM [facility] ALT 64(H) <=50 U/L 10/09/2024 6:23 AM [facility] GFR >60 >=60 mL/min/1. 73 sq meter 10/09/2024 6:23 AM [facility] Comment:eGFR calculated with 2020 CKD-EPI equation. Vegetarian diet, extremely high or low muscle mass, and may affect results. Cystatin C with Glomerular Filtration Rate is a suitable alternative for these patients. ANION GAP 13 9 - 20 mmol/L 10/09/2024 6:23 AM [facility] Blood Collection / Unknown 10/09/2024 4:00 AM CDT 10/09/2024 5:22 AM CDT Hamilton Sheffield DO CHEMISTRY ORDERABLES Final R esult [facility] CLIA # [id number] [address] [place] [address] * TSH REFLEXIVE (10/09/2024 4:00 AM CDT) TSH 1.28 0.27 - 4.20 uIU/mL 10/09/2024 6:29 AM T [facility] Blood Collection / Unknown 10/09/2024 4:00 AM CDT 10/09/2024 5:22 AM CDT us Hamilton Sheffield DO CHEMISTRY ORDERABLES Final R esult [facility] CLIA # [id number] [address] [address] [place] [address] documented in this encounter Visit Diagnoses Not on filedocumented in this encounter Additional Health Concerns Infection Onset Date Last Indicated Resolved Time Respiratory Syncytial Virus (RSV) 09/25/2024 025 10/17/2024 1:16 AM CDT 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
--- OUTSIDE RECORDS SUMMARY | 2025-02-09 15:07 | XMS_ITS | Encounter Summary ---
Author Organization [facility] Address [address] [place] [address] Care Team Providers Care All Round Logger Name Role Phone [place] DO Primary Care Provider [phone] Encounter Details Date Type Department Care Team (Late st Contact Info) Description 03/28/2023 Lab Requisition [facility] [address] [place] [address] Ileana Song MD [address] [place] [address] Social History Tobacco Use Types Packs/Day Years Used Date Smoking Tobacco: Former Cigarettes Q uit: 1998 Smokeless Tobacco: Former Snuff, Chew Alcohol Use Standard Drinks/Week Comments Yes 0 (1 standard drink = 0.6 oz pur e alcohol) socially maybe once a month Sex and Gender Information Value Date Recorded Sex Assigned at Not on file Legal Sex Male 3:17 AM [employer] Gender Identity Not on file Sexual Orientation Not on file documented as of this encounter Plan of Treatment Not on file documented as of this encounter Procedures Procedure Name Priority Date/Time Associated Diagnosis Comments SODIUM LEVEL Routine 03/28/2023 4:00 PM CDT documented in this encounter Results * (ABNORMAL) SODIUM LEVEL (03/28/2023 4:00 PM CDT) SODIUM 148(H) 136 - 145 mmol/L 03/28/2023 6:16 PM CDT [facility] Blood Collection / Unknown 03/28/2023 4:00 PM CDT 03/28/2023 6:07 PM CDT Ileana Song MD CHEMISTRY ORDERABLES Final Resu lt [facility] CLIA # [id number] [facility] [address] [address] [place] [address] documented in this encounter Visit Diagnoses Not on filedocumented in this encounter Additional Health Concerns Infection Onset Date Last Indicated Resolved Time R/O C. diff 04/19/2023 04/19/2023 04/19/2023 3:44 AM CDT R/O COVID-19 07/09/2024 07/09/2024 07/09/2024 5:41 PM ADOBE MA[employer]ER R/O GI Pathogen 07/09/2024 07/09/2024 07/10/2024 8 :40 AM ADOBE MAKER C Diff 07/09/2024 07/09/2024 09/13/2024 1:1 6 AM [employer]OBE MAKER [facility] ([facility]) Comment:[facility] sputum 07/19/24 , negative MDRO sputum 09/08/24 ls 07/19/2024 07/19/2024 2:20 PM ADOBE MAKER R/O COVID-19 08/08/2024 08/08/2024 08/08/2024 3:12 AM ADOBE MAKER R/O COVID-19 09/07/2024 09/07/2024 09/07/2024 1:57 AM ADOBE MAKER Respiratory Syncytial Virus (RSV) 09/07/2024 025 09/21/2024 1:16 AM CDT R/O Respiratory 09/25/2024 09/25/2024 09/26/2024 1 :06 AM CDT Respiratory Syncytial Virus (RSV) 09/25/2024 025 10/17/2024 1:16 AM CDT [facility] ([facility]) Comment:10/03/24: Sputum (Pseudomonas aeruginosa) 10/03/2024 10/03/2024 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
--- OUTSIDE RECORDS SUMMARY | 2025-02-09 15:07 | XMS_ITS | Encounter Summary ---
Author Organization [facility] Address [address] [place] [address] Care Team Providers Care Environmental Programs Specialist Name Role Phone [place] DO Primary Care Provider [phone] Encounter Details Date Type Department Care Team (Late st Contact Info) Description 03/27/2023 Lab Requisition [facility] Laboratory Services [address] [place] [address] Ileana Song MD [address] [place] [address] Social History Tobacco Use Types Packs/Day Years Used Date Smoking Tobacco: Former Cigarettes Q uit: 1998 Smokeless Tobacco: Former Snuff, Chew Alcohol Use Standard Drinks/Week Comments Yes 0 (1 standard drink = 0.6 oz pur e alcohol) socially maybe once a month Sex and Gender Information Value Date Recorded Sex Assigned at Not on file 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 Gender Identity Not on file Sexual Orientation Not on file documented as of this encounter Plan of Treatment Not on file documented as of this encounter Procedures Procedure Name Priority Date/Time Associated Diagnosis Comments SODIUM LEVEL Stat 03/27/2023 10:50 PM CDT documented in this encounter Results * (ABNORMAL) SODIUM LEVEL (03/27/2023 10:50 PM CDT) SODIUM 154(H) 136 - 145 mmol/L 03/28/2023 12:00 AM CDT [facility] LABORATORY SERVICES [facility] Blood Collection / Unknown 03/27/2023 10:50 PM CDT 03/27/2023 11:35 PM CDT Ileana Song MD CHEMISTRY ORDERABLES Final Resu lt [facility] CLIA # [id number] [facility] [address] [place] [address] documented in this encounter Visit Diagnoses Not on filedocumented in this encounter Additional Health Concerns Infection Onset Date Last Indicated Resolved Time R/O C. diff 04/19/2023 04/19/2023 04/19/2023 3:44 AM CDT R/O COVID-19 07/09/2024 07/09/2024 07/09/2024 5:41 PM MACHINE PIE MAKER R/O GI Pathogen 07/09/2024 07/09/2024 07/10/2024 8 :40 AM MACHINE PIE MAKER C Diff 07/09/2024 07/09/2024 09/13/2024 1:16 AM MACHINE PIE MAKER Multi Drug Resistant Organis m (MDRO) Comment:MDRO sputum 07/19/24 , negative MDRO sputum 09/08/24 ls 07/19/2024 07/19/2024 2:20 PM MACHINE PIE MAKER R/O COVID-19 08/08/2024 08/08/2024 08/08/2024 3:12 AM MACHINE PIE MAKER R/O COVID-19 09/07/2024 09/07/2024 09/07/2024 1:57 AM MACHINE PIE MAKER Respiratory Syncytial Virus (RSV) 09/07/2024 025 09/21/2024 1:16 AM CDT R/O Respiratory 09/25/2024 09/25/2024 09/26/2024 1 :06 AM CDT Respiratory Syncytial Virus (RSV) 09/25/2024 025 10/17/2024 1:16 AM CDT Multi Drug Resistant Organis m (MDRO) Comment:10/03/24: Sputum (Pseudomonas aeruginosa) 10/03/2024 10/03/2024 DIRECTOR OF REHABILITATIVE SERVICES Comment:10/03/24: Sputum (Pseudomonas aeruginosa) 10/03/2024 10/07/2024 R/O Respiratory 11/28/2024 11/28/2024 11/28/2024 7 :05 AM CDT Respiratory Syncytial Virus (RSV) 11/28/2024 025 12/12/2024 1:16 AM CDT R/O GI Pathogen 12/13/2024 12/13/2024 12/14/2024 1 2:34 AM CDT documented as of this encounter Care Teams Environmental Programs Specialist Relationship Specialty Start Date End Date Charles Clancy DO [address] [place] [phone] PCP - General Family Practice 11/07/24 documented as of this encounter
--- OUTSIDE RECORDS SUMMARY | 2025-02-09 15:07 | XMS_ITS | Encounter Summary ---
Author Organization [facility] Address 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 Gender Identity Not on file Sexual Orientation Not on file documented as of this encounter Plan of Treatment Not on file documented as of this encounter Procedures Procedure Name Priority Date/Time Associated Diagnosis Comments CBC WITH DIFFERENTIAL Routine 10/14/2024 3:30 AM CDT COMPREHENSIVE METABOLIC PANEL Routine 10/14/2024 3:30 AM CDT documented in this encounter Results * (ABNORMAL) CBC WITH DIFFERENTIAL (10/14/2024 3:30 AM CDT) [facility] WBC 8.4 4.8 - 10.8 K/uL 10/14/2024 6:07 AM [facility] RBC 5.40 4.60 - 6.20 M/uL 10/14/2024 6:07 AM [facility] HEMOGLOBIN 13.9(L) 14.0 - 18.0 g/dL 10/14/2024 6:07 AM [facility] HEMATOCRIT 45.2 41.0 - 53.0 % 10/14/2024 6:07 AM [facility] MCV 83.7(L) 84.0 - 103.0 fL 10/14/2024 6:07 AM [facility] MCH 25.7(L) 27.0 - 34.0 pg 10/14/2024 6:07 AM [facility] MCHC 30.8 30.0 - 35.0 g/dL 10/14/2024 6:07 AM [facility] PLATELETS 189 140 - 440 K/uL 10/14/2024 6:07 AM [facility] MPV 12.0 8.9 - 12.8 fL 10/14/2024 6:07 AM [facility] RDW 18.1(H) 11.0 - 14.5 % 10/14/2024 6:07 AM [facility] RDW-STDEV 53.5 37.0 - 54.0 fL 10/14/2024 6:07 AM [facility] NEUTROPHILS 69 42 - 75 % 10/14/2024 6:07 AM [facility] LYMPHOCYTES 19(L) 24 - 44 % 10/14/2024 6:07 AM [facility] MONOCYTES 9 2 - 10 % 10/14/2024 6:07 AM T [facility] EOSINOPHILS 1 0 - 7 % 10/14/2024 6:07 AM T [facility] BASOPHILS 1 0 - 1 % 10/14/2024 6:07 AM CDT [facility] IMMATURE GRANULOCYTES 1 0 - 2 % 10/14/2024 6:07 AM CDT [facility] NEUTROPHIL ABSOLUTE 5.75 2.00 - 8.00 K/uL 10/14/2024 6:07 AM CDT [facility] LYMPHOCYTE ABSOLUTE 1.59 1.20 - 4.00 K/uL 10/14/2024 6:07 AM CDT [facility] MONOCYTE ABSOLUTE 0.79(H) 0.10 - 0.60 K/uL 10/14/2024 6:07 AM CDT [facility] EOSINOPHIL ABSOLUTE 0.10 0.00 - 0.70 K/uL 10/14/2024 6:07 AM CDT [facility] BASOPHILS ABSOLUTE 0.07 0.00 - 0.20 K/uL 10/14/2024 6:07 AM CDT [facility] IMMATURE GRANULOCYTES ABSOLUTE 0.06 0.00 - 0.10 K/uL 10/14/2024 6:07 AM T [facility] SMEAR REVIEWED: NA - Not Applicable 10/14/2024 6:07 AM [facility] Blood Collection / Unknown 10/14/2024 3:30 AM CDT 10/14/2024 5:57 AM CDT Hamilton Sheffield DO HEMATOLOGY ORDERABLES Final Result Performing Organization Address City/State/[facility] Co de Phone Number [facility] CLIA # [id number] [address] [place] [address] * (ABNORMAL) COMPREHENSIVE METABOLIC PANEL (10/14/2024 3:30 AM CDT) Pathologist [facility] SODIUM 142 136 - 145 mmol/L 10/14/2024 6:30 AM CDT [facility] POTASSIUM 3.6 3.5 - 5.1 mmol/L 10/14/2024 6:30 AM CDT [facility] CHLORIDE 102 98 - 107 mmol/L 10/14/2024 6:30 AM [facility] CO2 28 22 - 29 mmol/L 10/14/2024 6:30 AM [facility] CALCIUM 9.7 8.8 - 10.2 mg/dL 10/14/2024 6:30 AM [facility] BUN 29(H) 8 - 23 mg/dL 10/14/2024 6:30 AM [facility] CREATININE 0.38(L) 0.67 - 1.17 mg/dL 10/14/2024 6:30 AM [facility] GLUCOSE 138(H) 74 - 99 mg/dL 10/14/2024 6:30 AM [facility] TOTAL PROTEIN 6.6 6.4 - 8.3 g/dL 10/14/2024 6:30 AM [facility] ALBUMIN 3.8 3.5 - 5.2 g/dL 10/14/2024 6:30 AM [facility] BILIRUBIN TOTAL 0.5 0.2 - 1.0 mg/dL 10/14/2024 6:30 AM [facility] ALKALINE PHOSPHATASE 104 40 - 129 U/L 10/14/2024 6:30 AM [facility] AST 31 10 - 50 U/L 10/14/2024 6:30 AM [facility] ALT 56(H) <=50 U/L 10/14/2024 6:30 AM [facility] GFR >60 >=60 mL/min/1. 73 sq meter 10/14/2024 6:30 AM [facility] Comment:eGFR calculated with 2020 CKD-EPI equation. Vegetarian diet, extremely high or low muscle mass, and may affect results. Cystatin C with Glomerular Filtration Rate is a suitable alternative for these patients. 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
--- OUTSIDE RECORDS SUMMARY | 2025-02-09 15:07 | XMS_ITS | Encounter Summary ---
Author Organization [facility] Address [address] [place] [address] Care Team Providers Care Imagery Intelligence Name Role Phone [place] Rock DO Primary Care Provider [phone] Encounter Details Date Type Department Care Team (Late st Contact Info) Description 03/27/2023 Lab Requisition [facility] Laboratory Services [address] [place] [address] Ileana Song MD [address] [place] [address] Social History Tobacco Use Types Packs/Day Years Used Date Smoking Tobacco: Former Cigarettes Q uit: 1998 Smokeless Tobacco: Former Snuff, Chew Alcohol Use Standard Drinks/Week Comments Yes 0 (1 standard drink = 0.6 oz pur e alcohol) socially maybe once a month Sex and Gender Information Value Date Recorded Sex Assigned at Not on file 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 Gender Identity Not on file Sexual Orientation Not on file documented as of this encounter Plan of Treatment Not on file documented as of this encounter Procedures Procedure Name Priority Date/Time Associated Diagnosis Comments SODIUM LEVEL Routine 03/27/2023 7:47 PM CDT documented in this encounter Results * (ABNORMAL) SODIUM LEVEL (03/27/2023 7:47 PM CDT) SODIUM 156(H) 136 - 145 mmol/L 03/27/2023 8:51 PM CDT [facility] Blood Collection / Unknown 03/27/2023 7:47 PM CDT 03/27/2023 8:39 PM CDT Ileana Song MD CHEMISTRY ORDERABLES Final Resu lt [facility] CLIA # [id number] [facility] [address] [place] [address] documented in this encounter Visit Diagnoses Not on filedocumented in this encounter Additional Health Concerns Infection Onset Date Last Indicated Resolved Time R/O C. 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:MDRO sputum 07/19/24 , negative MDRO sputum 09/08/24 ls 07/19/2024 07/19/2024 2:20 PM BI APPLICATION DEVELOPER R/O COVID-19 08/08/2024 08/08/2024 08/08/2024 3:12 AM BI APPLICATION DEVELOPER R/O COVID-19 09/07/2024 09/07/2024 09/07/2024 1:57 AM BI APPLICATION DEVELOPER Respiratory Syncytial Virus (RSV) 09/07/2024 025 09/21/2024 1:16 AM CDT R/O Respiratory 09/25/2024 09/25/2024 09/26/2024 1 :06 AM CDT Respiratory Syncytial Virus (RSV) 09/25/2024 025 10/17/2024 1:16 AM CDT 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
--- OUTSIDE RECORDS SUMMARY | 2025-02-09 15:07 | XMS_ITS | Encounter Summary ---
Author Organization [facility] Address [address] [place] [address] Care Team Providers Care Child Therapist Name Role Phone Charles Clancy DO Primary Care Provider [phone] Encounter Details Date Type Department Care Team (Late st Contact Info) Description 10/10/[address] 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 WBC 12.4(H) 4.8 - 10.8 K/uL 10/10/2024 6:00 AM [facility] RBC 5.51 4.60 - 6.20 M/uL 10/10/2024 6:00 AM [facility] HEMOGLOBIN 14.1 14.0 - 18.0 g/dL 10/10/2024 6:00 AM [facility] HEMATOCRIT 47.3 41.0 - 53.0 % 10/10/2024 6:00 AM [facility] MCV 85.8 84.0 - 103.0 fL 10/10/2024 6:00 AM [facility] MCH 25.6(L) 27.0 - 34.0 pg 10/10/2024 6:00 AM [facility] MCHC 29.8(L) 30.0 - 35.0 g/dL 10/10/2024 6:00 AM [facility] PLATELETS 232 140 - 440 K/uL 10/10/2024 6:00 AM [facility] MPV 11.8 8.9 - 12.8 fL 10/10/2024 6:00 AM [facility] RDW 18.7(H) 11.0 - 14.5 % 10/10/2024 6:00 AM [facility] RDW-STDEV 56.9(H) 37.0 - 54.0 fL 10/10/2024 6:00 AM [facility] NEUTROPHILS 75 42 - 75 % 10/10/2024 6:00 AM [facility] LYMPHOCYTES 14(L) 24 - 44 % 10/10/2024 6:00 AM [facility] MONOCYTES 7 2 - 10 % 10/10/2024 6:00 AM [facility] EOSINOPHILS 3 0 - 7 % 10/10/2024 6:00 AM [facility] BASOPHILS 1 0 - 1 % 10/10/2024 6:00 AM CDT [facility] IMMATURE GRANULOCYTES 1 0 - 2 % 10/10/2024 6:00 AM CDT [facility] NEUTROPHIL ABSOLUTE 9.33(H) 2.00 - 8.00 K/uL 10/10/2024 6:00 AM CDT [facility] LYMPHOCYTE ABSOLUTE 1.71 1.20 - 4.00 K/uL 10/10/2024 6:00 AM CDT [facility] MONOCYTE ABSOLUTE 0.91(H) 0.10 - 0.60 K/uL 10/10/2024 6:00 AM CDT [facility] EOSINOPHIL ABSOLUTE 0.31 0.00 - 0.70 K/uL 10/10/2024 6:00 AM CDT [facility] BASOPHILS ABSOLUTE 0.07 0.00 - 0.20 K/uL 10/10/2024 6:00 AM CDT [facility] IMMATURE GRANULOCYTES ABSOLUTE 0.11(H) 0.00 - 0.10 K/uL 10/10/2024 6:00 AM T [facility] SMEAR REVIEWED: NA - Not Applicable 10/10/2024 6:00 AM [facility] Blood Collection / Unknown 10/10/2024 3:15 AM CDT 10/10/2024 5:50 AM CDT Hamilton Sheffield DO HEMATOLOGY ORDERABLES Final Result [facility] CLIA # [id number] [address] [place] [address] [place] [address] * (ABNORMAL) COMPREHENSIVE METABOLIC PANEL (10/10/2024 3:15 AM CDT) SODIUM 144 136 - 145 mmol/L 10/10/2024 6:27 AM CDT [facility] POTASSIUM 3.6 3.5 - 5.1 mmol/L 10/10/2024 6:27 AM CDT [facility] CHLORIDE 104 98 - 107 mmol/L 10/10/2024 6:27 AM [facility] CO2 28 22 - 29 mmol/L 10/10/2024 6:27 AM [facility] CALCIUM 10.0 8.8 - 10.2 mg/dL 10/10/2024 6:27 AM [facility] BUN 37(H) 8 - 23 mg/dL 10/10/2024 6:27 AM [facility] CREATININE 0.38(L) 0.67 - 1.17 mg/dL 10/10/2024 6:27 AM [facility] GLUCOSE 164(H) 74 - 99 mg/dL 10/10/2024 6:27 AM [facility] TOTAL PROTEIN 7.1 6.4 - 8.3 g/dL 10/10/2024 6:27 AM [facility] ALBUMIN 3.9 3.5 - 5.2 g/dL 10/10/2024 6:27 AM [facility] BILIRUBIN TOTAL 0.3 0.2 - 1.0 mg/dL 10/10/2024 6:27 AM [facility] ALKALINE PHOSPHATASE 116 40 - 129 U/L 10/10/2024 6:27 AM [facility] AST 47 10 - 50 U/L 10/10/2024 6:27 AM [facility] ALT 69(H) <=50 U/L 10/10/2024 6:27 AM [facility] GFR >60 >=60 mL/min/1. 73 sq meter 10/10/2024 6:27 AM [facility] Comment:eGFR calculated with 2020 CKD-EPI equation. Vegetarian diet, extremely high or low muscle mass, and may affect results. Cystatin C with Glomerular Filtration Rate is a suitable alternative for these patients. ANION GAP 12 9 - 20 mmol/L 10/10/2024 6:27 AM [facility] Blood Collection / Unknown 10/10/2024 3:15 AM CDT 10/10/2024 5:50 AM CDT us Hamilton Sheffield DO CHEMISTRY ORDERABLES Final R esult [facility] CLIA # [id number] [address] [facility] [place] [address] documented in this encounter Visit Diagnoses Not on filedocumented in this encounter Additional Health Concerns Infection Onset Date Last Indicated Resolved Time Respiratory Syncytial Virus (RSV) 09/25/2024 025 10/17/2024 1:16 AM CDT 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
--- OUTSIDE RECORDS SUMMARY | 2025-02-09 15:07 | XMS_ITS | Encounter Summary ---
Author Organization [facility] Address 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 Gender Identity Not on file Sexual Orientation Not on file documented as of this encounter Plan of Treatment Not on file documented as of this encounter Procedures Procedure Name Priority Date/Time Associated Diagnosis Comments URINALYSIS WITH REFLEX CULTURE Routine 10/11/2024 10:00 PM CDT documented in this encounter Results * (ABNORMAL) URINALYSIS WITH REFLEX CULTURE (10/11/2024 10:00 PM CDT) COLOR UA Yellow Pale to Dark Yellow 10/11/2024 10:37 PM CDT [facility] CLARITY UA Clear Clear 10/11/2024 10:37 PM CDT [facility] SPECIFIC GRAVITY UA 1.021 1.003 - 1.035 10/11/2024 10:37 PM CDT [facility] PH UA 7.5 5.0 - 8.0 10/11/2024 10:37 PM CDT [facility] LEUKOCYTE ESTERASE UA Negative Negative 10/11/2024 10:37 PM CDT [facility] NITRITE UA Negative Negative 10/11/2024 10:37 PM CDT [facility] PROTEIN UA 1+(A) Negative 10/11/2024 10:37 PM CDT [facility] GLUCOSE UA Negative Negative 10/11/2024 10:37 PM CDT [facility] KETONES UA Negative Negative 10/11/2024 10:37 PM T [facility] UROBILINOGEN UA <2.0 <2.0 mg/dL 10:37 PM CDT [facility] BILIRUBIN UA Negative Negative 10/11/2024 10:37 PM CDT [facility] BLOOD UA Negative Negative 10/11/2024 10:37 PM T [facility] WBC UA 3-5(A) 0 - 2 /hpf 10/11/2024 10:37 PM T [facility] RBC UA 3-5(A) 0 - 2 /hpf 10/11/2024 10:37 PM CDT [facility] BACTERIA UA 1+(A) Negative /hpf 10/11/2024 10:37 PM T [facility] Urine URINE SPECIMEN OBTAINED BY CLEAN CATCH PROCEDURE / Unknown Collection / Unknown 10/11/2024 10:00 PM CDT 10/11/2024 10:25 PM CDT Hamilton Sheffield DO URINE ORDERABLES Final Resul t [facility] CLIA # [id number] [address] [facility] [place] [address] documented in this encounter Visit Diagnoses Not on filedocumented in this encounter Additional Health Concerns Infection Onset Date Last Indicated Resolved Time Respiratory Syncytial Virus (RSV) 09/25/2024 025 10/17/2024 1:16 AM CDT [facility]istant [facility] m (MDRO) Comment:10/03/24: Sputum (Pseudomonas aeruginosa) 10/03/2024 10/03/2024 IT APPLICATION SUPPORT ANALYST Comment:10/03/24: Sputum (Pseudomonas aeruginosa) 10/03/2024 10/07/2024 R/O Respiratory 11/28/2024 11/28/2024 11/28/2024 7 :05 AM CDT Respiratory Syncytial Virus (RSV) 11/28/2024 025 12/12/2024 1:16 AM CDT R/O GI Pathogen 12/13/2024 12/13/2024 12/14/2024 1 2:34 AM CDT documented as of this encounter Care Teams Livestock Buyer Relationship Specialty Start Date End Date Charles Clancy DO [address] [place] [address] PCP - General Family Practice 11/07/24 documented as of this encounter
--- OUTSIDE RECORDS SUMMARY | 2025-02-09 15:07 | XMS_ITS | Encounter Summary ---
Author Organization [facility] Address [address] [place] [address] Care Team Providers Care Transport Medic Name Role Phone Aston Charles Rock DO Primary Care Provider [phone] Encounter Details Date Type Department Care Team (Late st Contact Info) Description 03/29/2023 Lab Requisition [facility] Laboratory Services [address] [place] [address] [place] [address] Ileana Song MD [address] [place] [address] Social History Tobacco Use Types Packs/Day Years Used Date Smoking Tobacco: Former Cigarettes Q uit: 1998 Smokeless Tobacco: Former Snuff, Chew Alcohol Use Standard Drinks/Week Comments Yes 0 (1 standard drink = 0.6 oz pur e alcohol) socially maybe once a month Sex and Gender Information Value Date Recorded Sex Assigned at Not on file 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 Gender Identity Not on file Sexual Orientation Not on file documented as of this encounter Plan of Treatment Not on file documented as of this encounter Procedures Procedure Name Priority Date/Time Associated Diagnosis Comments BASIC METABOLIC PANEL Routine 03/29/2023 10:30 AM CDT documented in this encounter Results * (ABNORMAL) BASIC METABOLIC PANEL (03/29/2023 10:30 AM CDT) SODIUM 143 136 - 145 mmol/L 03/29/2023 12:10 PM CDT [facility] POTASSIUM 4.2 3.5 - 5.1 mmol/L 03/29/2023 12:10 PM T [facility] CHLORIDE 109(H) 98 - 107 mmol/L 03/29/2023 12:10 PM T [facility] CO2 28 22 - 29 mmol/L 03/29/2023 12:10 PM T [facility] CALCIUM 8.1(L) 8.8 - 10.2 mg/dL 03/29/2023 12:10 PM T [facility] BUN 18 8 - 23 mg/dL 03/29/2023 12:10 PM T [facility] CREATININE 0.35(L) 0.67 - 1.17 mg/dL 03/29/2023 12:10 PM T [facility] GLUCOSE 280(H) 74 - 99 mg/dL 03/29/2023 12:10 PM T [facility] GFR >60 >=60 mL/min/1. 73 sq meter 03/29/2023 12:10 PM T [facility] Comment:eGFR calculated with 2020 CKD-EPI equation. Vegetarian diet, extremely high or low muscle mass, and may affect results. Cystatin C with Glomerular Filtration Rate is a suitable alternative for these patients. ANION GAP 6(L) 9 - 20 mmol/L 03/29/2023 12:10 PM [facility] Blood Collection / Unknown 03/29/2023 10:30 AM CDT 03/29/2023 11:53 AM CDT us Ileana Song MD CHEMISTRY ORDERABLES Final Resu lt [facility] CLIA # [id number] [address] [place] [address] documented in this encounter Visit Diagnoses Not on filedocumented in this encounter Additional Health Concerns Infection Onset Date Last Indicated Resolved Time R/O C. 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:MDRO sputum 07/19/24 , negative MDRO sputum 09/08/24 ls 07/19/2024 07/19/2024 2:20 PM REGIONAL ADMINISTRATIVE ASSISTANT R/O COVID-19 08/08/2024 08/08/2024 08/08/2024 3:12 AM REGIONAL ADMINISTRATIVE ASSISTANT R/O COVID-19 09/07/2024 09/07/2024 09/07/2024 1:57 AM REGIONAL ADMINISTRATIVE ASSISTANT Respiratory Syncytial Virus (RSV) 09/07/2024 025 09/21/2024 1:16 AM CDT R/O Respiratory 09/25/2024 09/25/2024 09/26/2024 1 :06 AM CDT Respiratory Syncytial Virus (RSV) 09/25/2024 025 10/17/2024 1:16 AM CDT 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
--- OUTSIDE RECORDS SUMMARY | 2025-02-09 15:07 | XMS_ITS | Encounter Summary ---
Author Organization [facility] Address [address] [place] [address] Care Team Providers Care Drag Seiner Name Role Phone Aston Charles Rock DO Primary Care Provider [phone] Encounter Details Date Type Department Care Team (Late st Contact Info) Description 03/27/2023 Lab Requisition [facility] Laboratory Services [address] [place] [address] [place] [address] Ileana Song MD [address] [place] [address] Social History Tobacco Use Types Packs/Day Years Used Date Smoking Tobacco: Former Cigarettes Q uit: 1998 Smokeless Tobacco: Former Snuff, Chew Alcohol Use Standard Drinks/Week Comments Yes 0 (1 standard drink = 0.6 oz pur e alcohol) socially maybe once a month Sex and Gender Information Value Date Recorded Sex Assigned at Not on file Legal Sex Male 3:17 AM REFRACTORY SPECIALIST Gender Identity Not on file Sexual Orientation Not on file documented as of this encounter Plan of Treatment Not on file documented as of this encounter Procedures Procedure Name Priority Date/Time Associated Diagnosis Comments SODIUM LEVEL Routine 03/27/2023 3:00 PM CDT documented in this encounter Results * (ABNORMAL) SODIUM LEVEL (03/27/2023 3:00 PM CDT) SODIUM 156(H) 136 - 145 mmol/L 03/27/2023 4:48 PM CDT [facility] SERVICES [facility] Blood Collection / Unknown 03/27/2023 3:00 PM CDT 03/27/2023 4:33 PM CDT Ileana Song MD CHEMISTRY ORDERABLES Final Resu lt [facility] CLIA # [id number] [facility] [address] [address] [place] [address] documented in this encounter Visit Diagnoses Not on filedocumented in this encounter Additional Health Concerns Infection Onset Date Last Indicated Resolved Time R/O C. 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:MDRO sputum 07/19/24 , negative MDRO sputum 09/08/24 ls 07/19/2024 07/19/2024 2:20 PM REFRACTORY SPECIALIST R/O COVID-19 08/08/2024 08/08/2024 08/08/2024 3:12 AM REFRACTORY SPECIALIST R/O COVID-19 09/07/2024 09/07/2024 09/07/2024 1:57 AM REFRACTORY SPECIALIST Respiratory Syncytial Virus (RSV) 09/07/2024 025 09/21/2024 1:16 AM CDT R/O Respiratory 09/25/2024 09/25/2024 09/26/2024 1 :06 AM CDT Respiratory Syncytial Virus (RSV) 09/25/2024 025 10/17/2024 1:16 AM CDT Multi Drug Resistant Organis m (MDRO) Comment:10/03/24: Sputum (Pseudomonas aeruginosa) 10/03/2024 10/03/2024 TECHNICAL SPECIALIST CYTOGENETICS Comment:10/03/24: Sputum (Pseudomonas aeruginosa) 10/03/2024 10/07/2024 R/O Respiratory 11/28/2024 11/28/2024 11/28/2024 7 :05 AM CDT Respiratory Syncytial Virus (RSV) 11/28/2024 025 12/12/2024 1:16 AM CDT R/O GI Pathogen 12/13/2024 12/13/2024 12/14/2024 1 2:34 AM CDT documented as of this encounter Care Teams Drag Seiner Relationship Specialty Start Date End Date Charles Clancy DO [address] [place] [phone] PCP - General Family Practice 11/07/24 documented as of this encounter
--- OUTSIDE RECORDS SUMMARY | 2025-02-09 15:07 | XMS_ITS | Clinical Summary ---
Author Organization [facility] Address [address] [facility] [place] [address] Care Team Providers Care Group Controller Name Role Phone Aristeo Rebollar MD Primary Care Provider [phone] Allergies Active Allergy Reactions Criticality Noted Date Comments Lisinopril Cough Low 07/20/2019 Metformin Other (See Comments) 07/26/2019 Tingling and burning in legs Medications losartan-hydroC HLOROthiazide (HYZAAR) 50-12.5 mg tablet Take 0.5 Tablets by mouth daily. Active sildenafiL (VIAGRA) 50 mg tablet Take 1 Tablet (50 mg) by mouth 1 time daily as needed for Erectile Dysfunction. Take 1 to 2 tablets 30 minutes to an hour prior to sexual activity. 10 Tablet 1 02/11/2020 Active finasteride (PROSCAR) 5 mg tablet Take 1 Tablet (5 mg) by mouth daily. 90 Tablet 3 08/13/2020 Active glimepiride (AMARYL) 1 mg tablet Take 1 mg by mouth daily with breakfast. Active Active Problems Problem Noted Date Diagnosed Date Morbid obesity with body mass index (BMI) of 40. 0 or higher 10/13/2020 Type 2 diabetes mellitus wit h hyperglycemia, without long-term current use of insulin 10/12/2020 HTN (hypertension), benign 10/12/2020 Diabetic peripheral neuropathy 10/12/2020 BPH (benign prostatic hyperplasia) 08/03/2019 Social History Tobacco Use Types Packs/Day Years Used Date Smoking Tobacco: Never Smokeless Tobacco: Never Tobacco Cessation:Counseling Given: No Alcohol Use Standard Drinks/Week Comments Yes 0 (1 standard drink = 0.6 oz pur e alcohol) Sex and Gender Information Value Date Recorded Sex Assigned at Not on file Legal Sex Male 4:09 AM FOAM MOLDER Gender Identity Not on file Sexual Orientation Not on file Last Filed Vital Signs Vital Sign Reading Time Taken Comments Blood Pressure 120/84 10/12/2020 3:44 PM CDT Pulse 95 10/12/2020 3:44 PM CDT Temperature 37 C (98.6 F) 08/03/2019 11:30 AM FOAM MOLDER Respiratory Rate 14 08/03/2019 11:30 AM FOAM MOLDER Oxygen Saturation 94% 10/12/2020 3:44 PM CDT Inhaled Oxygen Concentration - - Weight 152.4 kg (336 lb) 10/12/2020 3:44 PM CDT Height 175.3 cm (5' 9 ) 10/12/2020 3:44 PM CDT Body Mass Index 49.62 10/12/2020 3:44 PM CDT Plan of Treatment Health Maintenance Due Date Last Done Comments DIABETES ANNUAL FOOT EXAM 1975 DIABETES ANNUAL RETINAL EXAM 1975 LDL CHOLESTEROL ANNUAL 1975 DTAP/TDAP/TD VACCINES (1 - Tdap) 1976 PNEUMOCOCCAL VACCINE 50+ YEA RS (1 of 2 - PCV) 1976 COLORECTAL SCREENING 2002 Colorectal Cancer Screening 2002 FIT-DNA Q 3 years 2002 FIT/FOBT Q 1 year 2002 Flex Sig/CT Colonography Q 5 years 2002 ZOSTER VACCINE (1 of 2) 2007 RSV VACCINE (60+ or ) (1 - Risk 60-74 years 1-dose series) 2017 DIABETES MICROALBUMIN ANNUAL SCREEN 01/14/2022 01/14/2021 Preventative Visit- Commercial 07/10/2024 INFLUENZA VACCINE (#1) 2025 DIABETES HBA1C Q 6 MONTHS 03/31/20252024, 02/28/2023, 01/14/2021, Additional history exists Procedures Procedure Name Priority Date/Time Associated Diagnosis Comments MICROALBUMIN/CREATIN INE RATIO, RANDOM UR Routine 01/14/2021 2:59 PM CDT Type 2 diabetes mellitus with hyperglycemia, without long-term current use of insulin ([facility]) HEMOGLOBIN A1C Routine 01/14/2021 2:59 PM CDT Type 2 diabetes mellitus with hyperglycemia, without long-term current use of insulin ([facility]) from Last 3 Months or Most Recently Relevant to Health Maintenance Results * MICROALBUMIN/CREATININE RATIO, RANDOM UR (01/14/2021 2:59 PM CDT) Creatinine, Urine 132 20 - 320 mg/dL [facility] MICROALBUMIN, URINE 0.7 See Note: mg/dL [facility] Comment: Reference Range: Reference Range Not established MICROALBUMIN/CREAT RATIO, UR 5 <30 mcg/mg creat [facility] Comment: The ADA defines abnormalities in albumin excretion as follows: Category Result (mcg/mg creatinine) Normal <30 Microalbuminuria 30-299 Clinical albuminuria > OR = 300 The ADA recommends that at least two of three specimens collected within a 3-6 month period be abnormal before considering a patient to be within a diagnostic category. Test [facility]formed [facility] [address] [place] [address] Andry Ordoñez D.O., MPH Urine URINE SPECIMEN OBTAINED BY CLEAN CATCH PROCEDURE / Unknown 01/14/2021 2:59 PM CDT 01/14/2021 3:01 PM CDT Aristeo Rebollar MD URINE ORDERABLES Final Res ult [facility] [address] [place] [address] * (ABNORMAL) HEMOGLOBIN A1C (01/14/2021 2:59 PM CDT) HEMOGLOBIN A1C 6.8(H) <5.7 % of total Hgb [facility] Comment: For someone without known diabetes, a hemoglobin A1c value of 6.5% or greater indicates that they may have diabetes and this should be confirmed with a follow-up test. For someone with known diabetes, a value <7% indicates that their diabetes is well controlled and a value greater than or equal to 7% indicates suboptimal control. A1c targets should be individualized based on duration of diabetes, age, comorbid conditions, and other considerations. Currently, no consensus exists regarding use of hemoglobin A1c for diagnosis of diabetes for children. Test Performed at: [facility] [address] [place] [address] Andry Ordoñez D.O., MPH Blood 01/14/2021 2:59 PM CDT 01/14/2021 3:01 PM CDT Aristeo Rebollar MD CHEMISTRY ORDERABLES Final Result [facility] [id number] [address] [id number] from Last 3 Months or Most Recently Relevant to Health Maintenance Insurance [employer] (INTERNAL) [employer] (INTERNAL) [employer] Advance Directives For more information, please contact: [phone] * Full Code (Latest Code Status on File) Date Activated Date Inactivated Comments 08/02/2019 2:35 PM 08/03/2019 4:53 PM Care Teams Group Controller Relationship Specialty Start Date End Date Aristeo Rebollar MD [address] [place] [address] PCP - General Internal Medicine 10/12/20
--- OUTSIDE RECORDS SUMMARY | 2025-02-09 15:07 | XMS_ITS | Clinical Summary ---
Author Organization [facility] Address [address] [place] [address] Care Team Providers Care Clinical Law Professor Name Role Phone Trenton Richardson Primary Care Provider [phone] Allergies Active Allergy Reactions Criticality Noted Date Comments Lisinopril Other (See Comments) Low 07/20/2019 Cough Metformin Other (See Comments) Low 07/26/2019 Tingling and burning in legs Succinylcholine Other (See Comments) Low 03/11/2021 Sister nearly paralyzed from it so they avoid as a precaution Medications acetaminophen (TYLENOL) 325 MG tablet 2 tablets (650 mg total) by PO/Per Tube route every 6 (six) hours as needed for mild pain or Temp > or equal to 101F (38.3C). 5 Active allopurinol (ZYLOPRIM) 100 MG tablet 1 tablet (100 mg total) by PO/Per Tube route in the morning. 30 tablet 5 Active Alogliptin Benzoate (NESINA) 25 MG tabletIndications :Type 2 Diabetes Mellitus 1 tablet (25 mg total) by PO/Per Tube route in the morning. Indications: Type 2 Diabetes. 30 tablet 5 Active amiodarone (PACERONE) 200 MG tablet 1 tablet (200 mg total) by PO/Per Tube route in the morning. 30 tablet 5 Active apixaban (Eliquis) 5 MG tabletIndications :Atrial Fibrillation 1 tablet (5 mg total) by PO/Per Tube route in the morning and 1 tablet (5 mg total) before bedtime. Indications: Atrial Fibrillation. 60 tablet 5 Active atorvastatin (LIPITOR) 10 MG tablet 1 tablet (10 mg total) by PO/Per Tube route nightly. 30 tablet 5 Active bacitracin zinc ointmentIndicatio ns:Wound Healing Apply topically daily Indications: Wound Healing. 5 Active busPIRone (BUSPAR) 15 MG tablet 1 tablet (15 mg total) by PO/Per Tube route 3 (three) times a day. 90 tablet 5 Active famotidine (PEPCID) 20 MG tablet 1 tablet (20 mg total) by PO/Per Tube route nightly. 30 tablet 5 Active finasteride (PROSCAR) 5 MG tablet 1 tablet (5 mg total) by PO/Per Tube route in the morning. 30 tablet 5 Active loratadine (CLARITIN) 10 MG tablet 1 tablet (10 mg total) by PO/Per Tube route in the morning. 5 Active metoprolol tartrate (LOPRESSOR) 25 MG tablet 0.5 tablets (12.5 mg total) by PO/Per Tube route in the morning and 0.5 tablets (12.5 mg total) before bedtime. 30 tablet 5 Active polyethyl glycol-propyl glycol (SYSTANE) 0.4-0.3 % solution ophthalmic solution Administer 2 drops into both eyes every 2 (two) hours as needed for dry eyes. 5 Active silodosin (RAPAFLO) 4 MG capsule capsule Administer 1 capsule (4 mg total) per tube nightly. 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 Resolved Problems Problem Noted Date Diagnosed Date Resolved Date Sepsis 11/14/2023 11/21/2023 Immunizations Immunization Administration Dates Next Due 107-influenza, Unspecified 03/24/2023(De ferred: Patient not in facility during flu season - not applicable) Moderna SARS-CoV-2 Vaccination (Deferred: Offered and declined - unable to accept),03/24/2023(Deferred: Offered and declined) Pfizer SARS-CoV-2 Vaccination 11/15/2023 (Deferred: Not available - Pt unable to elect at this point in time) Family History Medical History Relation Name Comments No Known Problems Brother No Known Problems Father No Known Problems Mother No Known Problems Sister Relation Name Status Comments Brother Father Mother Sister Social History Tobacco Use Types Packs/Day Years Used Date Smoking Tobacco: Unknown Passive Smoke Exposure: Past Tobacco Cessation:Counseling Given: No Alcohol Use Standard Drinks/Week Comments Defer 0 (1 standard drink = 0.6 oz pur e alcohol) [facility] Utilities Answer Date Recorded In the past 12 months has e electric, gas, oil, or water company threatened to shut off services in your home? Patient declined 10/09/2024 Social Connection and Isolation Panel [NHANES] A nswer Date Recorded In a typical week, how many times do you talk on the phone with family, friends, or neighbors? Patient declined 10/09/2024 How often do you get togethe r with friends or relatives? Patient declined 10/09/2024 How often do you attend evangelical or uatsdin serv ices? Patient declined 10/09/2024 Do you belong to any clubs o r organizations such as evangelical groups, unions, fraternal or athletic groups, or school groups? Patient declined 10/09/2024 How often do you attend meet ings of the clubs or organizations you belong to? Patient declined 10/09/2024 Are you , , di vorced, , never , or living with a partner? Patient declined 10/09/2024 AUDIT-C Answer Date Recorded Q1: How often do you have a drink containing alcohol? Patient unable to answer 10/09/2024 Q2: How many drinks containi ng alcohol do you have on a typical day when you are drinking? Patient unable to answer Q3: How often do you have si x or more drinks on one occasion? Patient unable to answer 10/09/2024 Overall Financial Resource Strain (CARDIA) Answe r Date Recorded How hard is it for you to pa y for the very basics like food, housing, medical care, and heating? Patient declined 10/09/2024 [facility] of Occupat ional Health - Occupational Stress Questionnaire Answer Date Recorded Do you feel stress - tense, restless, nervous, or anxious, or unable to sleep at night because your mind is troubled all the time - these days? To some extent 10/26/2024 Hunger Vital Sign Answer Date Recorded Within the past 12 months, y ou worried that your food would run out before you got the money to buy more. Patient declined Within the past 12 months, t he food you bought just didn't last and you didn't have money to get more. Patient declined 08/2024 Housing Stability Vital Sign Answer Anish e Recorded In the last 12 months, was t here a time when you were not able to pay the mortgage or rent on time? Patient declined 10/10/19 25 In the past 12 months, how m any times have you moved where you were living? 0 10/09/2024 At any time in the past 12 m [facility], were you homeless or living in a alf (including now)? Patient declined 10/09/2024 Domestic Abuse Assessment Answer Date R ecorded Do you feel safe in your relationships at home? Yes 10/08/2024 Physical Abuse Denies 10/08/2024 HRSN Domestic Abuse - Type of Abuse Not on file 10/08/2024 HRSN Domestic Abuse - Time Frame Not on file 10/08/2024 HRSN Domestic Abuse - Signs and Symptoms Not on file 10/08/2024 Verbal Abuse Denies 10/08/2024 HRSN Domestic Abuse - Reported To Not on file 10/08/2024 SDOH Transportation Source Answer Da te Recorded Has lack of transportation k ept you from medical appointments or from getting medications? No 10/25/2024 Has lack of transportation k ept you from meetings, work, or from getting things needed for daily living? No 10/25/2024 HRSN Depression PHQ-2 Answer Date Recor ded Feeling down, depressed, or hopeless 1 10/26/2024 Little interest or pleasure in doing things 1 10/26/2024 Sex and Gender Information Value Date Recorded Sex Assigned at Male 11/16/2023 2:35 PM EDT Legal Sex Male 12:56 PM EDT Gender Identity Male 11/16/2023 2:35 PM EDT Sexual Orientation Straight 11/16/2023 2: 35 PM EDT Last Filed Vital Signs Vital Sign Reading Time Taken Comments Blood Pressure 106/62 10/26/2024 11:25 AM CDT Pulse 78 10/26/2024 11:25 AM CDT Temperature 36.7 C (98.1 F) 10/26/2024 11:25 AM CDT Respiratory Rate 12 10/26/2024 11:2 5 AM CDT Oxygen Saturation 97% 10/26/2024 11: 25 AM CDT Inhaled Oxygen Concentration - - Weight 75.3 kg (165 lb 14.4 oz) 10/22/2024 5:21 AM CDT Height 182.9 cm (6') 10/08/2024 6:07 PM CDT Body Mass Index 22.5 10/08/2024 6:07 PM CDT Plan of Treatment Health Maintenance Due Date Last Done Comments CT Colonography 1957 FIT-DNA (Cologuard) 1957 FIT 1957 Sigmoidoscopy 1957 Annual Visit Topic 1958 Hepatitis C Screening 1975 DTaP/Tdap/Td Vaccines (1 - Tdap) 1976 Pneumococcal Vaccine: 65+ Ye ars (1 of 2 - PCV) 2007 PSA Test 2012 FOBT 07/09/2025 07/09/2024 Colonoscopy 11/12/2033 11/13/2023 Colorectal Cancer Screening 11/12/2033 HIB Vaccines Aged Out No longer eligi ble based on patient's age to complete this topic HPV Vaccines Aged Out No longer eligi ble based on patient's age to complete this topic Hepatitis A Vaccines Aged Out No long er eligible based on patient's age to complete this topic Hepatitis B Vaccines Aged Out No long er eligible based on patient's age to complete this topic IPV Vaccines Aged Out No longer eligi ble based on patient's age to complete this topic Meningococcal Vaccine Aged Out No tamra raudel eligible based on patient's age to complete this topic Advance Directives * Full Resuscitation (Latest Code Status on File) Date Activated Date Inactivated Comments 10/08/2024 6:49 PM 10/26/2024 5:00 PM Question Answer Comments I have discussed this order with the patient or his/her surrogate and have received informed consent. Yes * Full Resuscitation Date Activated Date Inactivated Comments 03/02/2024 4:29 AM 06/26/2024 6:01 PM Question Answer Comments I have discussed this order with the patient or his/her surrogate and have received informed consent. Yes * Full Resuscitation Date Activated Date Inactivated Comments 11/15/2023 12:09 PM 11/21/2023 4:26 PM Question Answer Comments I have discussed this order with the patient or his/her surrogate and have received informed consent. Yes * Full Resuscitation Date Activated Date Inactivated Comments 03/24/2023 9:49 PM 04/18/2023 8:24 PM Question Answer Comments I have discussed this order with the patient or his/her surrogate and have received informed consent. Yes Care Teams Clinical Law Professor Relationship Specialty Start Date End Date Trenton Richardson PA [address] [place] [address] PCP - General 10/25/24
--- OUTSIDE RECORDS SUMMARY | 2025-02-09 15:07 | XMS_ITS | Encounter Summary ---
Author Organization [facility] Address [address] [place] [address] Care Team Providers Care Doughnut Fryer Name Role Phone Aston Charles Rock DO Primary Care Provider [phone] Encounter Details Date Type Department Care Team (Late st Contact Info) Description 03/27/2023 Lab Requisition [facility] Laboratory Services [address] [place] [id number] Mark Sheffield MD [address] [place] [address] Social History Tobacco Use Types Packs/Day Years Used Date Smoking Tobacco: Former Cigarettes Q uit: 1998 Smokeless Tobacco: Former Snuff, Chew Alcohol Use Standard Drinks/Week Comments Yes 0 (1 standard drink = 0.6 oz pur e alcohol) socially maybe once a month Sex and Gender Information Value Date Recorded Sex Assigned at Not on file Legal Sex Male 3:17 AM DEPENDENCY DIRECTOR Gender Identity Not on file Sexual Orientation Not on file documented as of this encounter Plan of Treatment Not on file documented as of this encounter Procedures Procedure Name Priority Date/Time Associated Diagnosis Comments SPUTUM CULTURE WITH GRAM STAIN Routine 03/27/2023 4:50 AM CDT documented in this encounter Results * (ABNORMAL) SPUTUM CULTURE WITH GRAM STAIN (03/27/2023 4:50 AM CDT) 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) TASHA MCG/ML 03/30/2023 9:46 AM CDT [facility] GRAM STAIN Smear contains </=10 squamous epithelial cells per low power field 03/30/2023 9:46 AM CDT [facility] GRAM STAIN >25 PMN WBC/LPF 9:46 AM CDT [facility] GRAM STAIN 1+ (Rare or Occasional) Gram positive cocci 03/30/2023 9:46 AM CDT [facility] Sputum 03/27/2023 4:5 0 AM CDT 03/27/2023 5:50 AM CDT Narrative Organism Antibiotic Method Susceptibility Burkholderia cepacia group LEVOFLOXACIN TASHA MCG/ML 1 mcg/mL: Susceptible Burkholderia cepacia group TRIMETHOPRIM/ SULFAMETHOXAZOLE TASHA MCG/ML <=20 mcg/mL: Susceptible Burkholderia cepacia group CEFTAZIDIME TASHA MCG/ML 16 mcg/mL: Intermediate Burkholderia cepacia group MINOCYCLINE HEREDIA-VERA Susceptible us Mark Sheffield MD MICROBIOLOGY - GENERAL OR DERABLES Final Result [facility] # [id number] [address] [place] [address] documented in this encounter Visit Diagnoses Not on filedocumented in this encounter Additional Health Concerns Infection Onset Date Last Indicated Resolved Time R/O C. diff 04/19/2023 04/19/2023 04/19/2023 3:44 AM CDT R/O COVID-19 07/09/2024 07/09/2024 07/09/2024 5:41 PM DEPENDENCY DIRECTOR R/O GI Pathogen 07/09/2024 07/09/2024 07/10/2024 8 :40 AM DEPENDENCY DIRECTOR C Diff 07/09/2024 07/09/2024 09/13/2024 1:16 AM DEPENDENCY DIRECTOR Multi Drug Resistant Organis m (MDRO) Comment:MDRO sputum 07/19/24 , negative MDRO sputum 09/08/24 ls 07/19/2024 07/19/2024 2:20 PM DEPENDENCY DIRECTOR R/O COVID-19 08/08/2024 08/08/2024 08/08/2024 3:12 AM DEPENDENCY DIRECTOR R/O COVID-19 09/07/2024 09/07/2024 09/07/2024 1:57 AM DEPENDENCY DIRECTOR Respiratory Syncytial Virus (RSV) 09/07/2024 025 09/21/2024 1:16 AM CDT R/O Respiratory 09/25/2024 09/25/2024 09/26/2024 1 :06 AM CDT Respiratory Syncytial Virus (RSV) 09/25/2024 025 10/17/2024 1:16 AM CDT Multi Drug Resistant Organis m (MDRO) Comment:10/03/24: Sputum (Pseudomonas aeruginosa) 10/03/2024 10/03/2024 PACKAGING MACHINE SUPPLIES DISTRIBUTOR Comment:10/03/24: Sputum (Pseudomonas aeruginosa) 10/03/2024 10/07/2024 R/O Respiratory 11/28/2024 11/28/2024 11/28/2024 7 :05 AM CDT Respiratory Syncytial Virus (RSV) 11/28/2024 025 12/12/2024 1:16 AM CDT R/O GI Pathogen 12/13/2024 12/13/2024 12/14/2024 1 2:34 AM CDT documented as of this encounter Care Teams Doughnut Fryer Relationship Specialty Start Date End Date Charles Clancy DO [address] [place] [phone] PCP - General Family Practice 11/07/24 documented as of this encounter
--- OUTSIDE RECORDS SUMMARY | 2025-02-09 15:07 | XMS_ITS | Encounter Summary ---
Author Organization [facility] Address [address] [place] [address] Care Team Providers Care Top Lift Trimmer Name Role Phone Aston Charles Rock DO Primary Care Provider [phone] Encounter Details Date Type Department Care Team (Late st Contact Info) Description 03/30/2023 Lab Requisition [facility] Laboratory Services [address] [place] [address] Ileana Song MD [address] [place] [address] Social History Tobacco Use Types Packs/Day Years Used Date Smoking Tobacco: Former Cigarettes Q uit: 1998 Smokeless Tobacco: Former Snuff, Chew Alcohol Use Standard Drinks/Week Comments Yes 0 (1 standard drink = 0.6 oz pur e alcohol) socially maybe once a month Sex and Gender Information Value Date Recorded Sex Assigned at Not on file Legal Sex Male 3:17 AM GRAPHICS PROGRAMMER Gender Identity Not on file Sexual Orientation Not on file documented as of this encounter Plan of Treatment Not on file documented as of this encounter Procedures Procedure Name Priority Date/Time Associated Diagnosis Comments DIFFERENTIAL, MANUAL Routine 03/30/2023 3:15 AM CDT CBC WITH DIFFERENTIAL Routine 03/30/2023 3:15 AM CDT COMPREHENSIVE METABOLIC PANEL Routine 03/30/2023 3:15 AM CDT documented in this encounter Results * MANUAL DIFFERENTIAL (03/30/2023 3:15 AM CDT) [facility] PLATELET EST. Decreased 03/30/2023 7:06 AM CDT [facility] ANISOCYTOSIS 2+ /hpf 03/30/2023 7:06 AM CDT [facility] POIKILOCYTES 1+ /hpf 03/30/2023 7:06 AM CDT [facility] POLYCHROMASIA 1+ /hpf 03/30/2023 7:06 AM CDT [facility] HYPOCHROMIA 1+ /hpf 03/30/2023 7:06 AM CDT [facility] Blood 03/30/2023 3:15 AM CDT 03/30/2023 5:38 AM CDT Ileana Song MD HEMATOLOGY ORDERABLES COM Final Result Performing Organization Address City/State/[facility] Co de Phone Number [facility] CLIA # [id number] [address] [place] [address] * (ABNORMAL) CBC WITH DIFFERENTIAL (03/30/2023 3:15 AM CDT) [facility] WBC 6.0 4.8 - 10.8 K/uL 03/30/2023 7:06 AM T [facility] RBC 3.31(L) 4.60 - 6.20 M/uL 03/30/2023 7:06 AM T [facility] HEMOGLOBIN 9.7(L) 14.0 - 18.0 g/dL 03/30/2023 7:06 AM CDT [facility] HEMATOCRIT 32.5(L) 41.0 - 53.0 % 03/30/2023 7:06 AM T [facility] MCV 98.2 84.0 - 103.0 fL 03/30/2023 7:06 AM CDT [facility] MCH 29.3 27.0 - 34.0 pg 03/30/2023 7:06 AM [facility] MCHC 29.8(L) 30.0 - 35.0 g/dL 03/30/2023 7:06 AM [facility] RDW 22.2(H) 11.0 - 14.5 % 03/30/2023 7:06 AM [facility] RDW-STDEV 77.9(H) 37.0 - 54.0 fL 03/30/2023 7:06 AM [facility] PLATELETS 94(L) 140 - 440 K/uL 03/30/2023 7:06 AM [facility] MPV 11.7 8.9 - 12.8 fL 03/30/2023 7:06 AM [facility] NEUTROPHILS 74 42 - 75 % 03/30/2023 7:06 AM [facility] LYMPHOCYTES 17(L) 24 - 44 % 03/30/2023 7:06 AM [facility] MONOCYTES 5 2 - 10 % 03/30/2023 7:06 AM [facility] EOSINOPHILS 3 0 - 7 % 03/30/2023 7:06 AM [facility] BASOPHILS 0 0 - 1 % 03/30/2023 7:06 AM [facility] IMMATURE GRANULOCYTES 1 0 - 2 % 03/30/2023 7:06 AM [facility] NEUTROPHIL ABSOLUTE 4.41 2.00 - 8.00 K/uL 03/30/2023 7:06 AM [facility] LYMPHOCYTE ABSOLUTE 0.99(L) 1.20 - 4.00 K/uL 03/30/2023 7:06 AM [facility] MONOCYTE ABSOLUTE 0.32 0.10 - 0.60 K/uL 03/30/2023 7:06 AM [facility] EOSINOPHIL ABSOLUTE 0.18 0.00 - 0.70 K/uL 03/30/2023 7:06 AM [facility] BASOPHILS ABSOLUTE 0.01 0.00 - 0.20 K/uL 03/30/2023 7:06 AM CDT [facility] IMMATURE GRANULOCYTES ABSOLUTE 0.05 0.00 - 0.10 K/uL 03/30/2023 7:06 AM T [facility] Blood 03/30/2023 3:15 AM CDT 03/30/2023 5:38 AM CDT us Ileana Song MD HEMATOLOGY ORDERABLES Final Res ult [facility] CLIA # [id number] [address] [address] [place] [address] * (ABNORMAL) COMPREHENSIVE METABOLIC PANEL (03/30/2023 3:15 AM CDT) SODIUM 140 136 - 145 mmol/L 03/30/2023 7:06 AM [facility] POTASSIUM 3.8 3.5 - 5.1 mmol/L 03/30/2023 7:06 AM [facility] CHLORIDE 106 98 - 107 mmol/L 03/30/2023 7:06 AM [facility] CO2 26 22 - 29 mmol/L 03/30/2023 7:06 AM [facility] CALCIUM 8.1(L) 8.8 - 10.2 mg/dL 03/30/2023 7:06 AM [facility] BUN 16 8 - 23 mg/dL 03/30/2023 7:06 AM [facility] CREATININE 0.36(L) 0.67 - 1.17 mg/dL 03/30/2023 7:06 AM [facility] GLUCOSE 170(H) 74 - 99 mg/dL 03/30/2023 7:06 AM [facility] TOTAL PROTEIN 5.0(L) 6.4 - 8.3 g/dL 03/30/2023 7:06 AM [facility] ALBUMIN 2.6(L) 3.5 - 5.2 g/dL 03/30/2023 7:06 AM CDT [facility] BILIRUBIN TOTAL 0.4 0.2 - 1.0 mg/dL 03/30/2023 7:06 AM [facility] ALKALINE PHOSPHATASE 77 40 - 129 U/L 03/30/2023 7:06 AM [facility] AST 26 10 - 50 U/L 03/30/2023 7:06 AM [facility] ALT 71(H) <=50 U/L 03/30/2023 7:06 AM T [facility] GFR >60 >=60 mL/min/1. 73 sq meter 03/30/2023 7:06 AM [facility] Comment:eGFR calculated with 2020 CKD-EPI equation. Vegetarian diet, extremely high or low muscle mass, and may affect results. Cystatin C with Glomerular Filtration Rate is a suitable alternative for these patients. ANION GAP 8(L) 9 - 20 mmol/L 03/30/2023 7:06 AM [facility] Blood 03/30/2023 3:15 AM CDT 03/30/2023 5:38 AM CDT us Ileana Song MD CHEMISTRY ORDERABLES Final Resu lt [facility] CLIA # [id number] [address] [place] [address] documented in this encounter Visit Diagnoses Not on filedocumented in this encounter Additional Health Concerns Infection Onset Date Last Indicated Resolved Time R/O C. 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 07/19/24 , negative MDRO sputum 09/08/24 ls 07/19/2024 07/19/2024 2:20 PM GRAPHICS PROGRAMMER R/O COVID-19 08/08/2024 08/08/2024 08/08/2024 3:12 AM GRAPHICS PROGRAMMER R/O COVID-19 09/07/2024 09/07/2024 09/07/2024 1:57 AM GRAPHICS PROGRAMMER Respiratory Syncytial Virus (RSV) 09/07/2024 025 09/21/2024 1:16 AM CDT R/O Respiratory 09/25/2024 09/25/2024 09/26/2024 1 :06 AM CDT Respiratory Syncytial Virus (RSV) 09/25/2024 025 10/17/2024 1:16 AM CDT [facility] Resistant Organis m (MDRO) Comment:10/03/24: Sputum (Pseudomonas aeruginosa) 10/03/2024 10/03/2024 DISTRIBUTION SALES REPRESENTATIVE Comment:10/03/24: Sputum (Pseudomonas aeruginosa) 10/03/2024 10/07/2024 R/O Respiratory 11/28/2024 11/28/2024 11/28/2024 7 :05 AM CDT Respiratory Syncytial Virus (RSV) 11/28/2024 025 12/12/2024 1:16 AM CDT R/O GI Pathogen 12/13/2024 12/13/2024 12/14/2024 1 2:34 AM CDT documented as of this encounter Care Teams Top Lift Trimmer Relationship Specialty Start Date End Date Charles Clancy DO [address] [place] [place] [phone] PCP - General Family Practice 11/07/24 documented as of this encounter
--- OUTSIDE RECORDS SUMMARY | 2025-02-09 15:07 | XMS_ITS | Encounter Summary ---
Author Organization [facility] Address [address] [place] [address] Care Team Providers Care Certified Breastfeeding Educator Name Role Phone Charles Clancy Shweta HILARIO Primary Care Provider [phone] Encounter Details Date Type Department Care Team (Late st Contact Info) Description 04/03/2023 Lab Requisition [facility] Laboratory Services [address] [place] [address] [place] [address] Ileana Song MD [address] [place] [address] Social History Tobacco Use Types Packs/Day Years Used Date Smoking Tobacco: Former Cigarettes Q uit: 1998 Smokeless Tobacco: Former Snuff, Chew Alcohol Use Standard Drinks/Week Comments Yes 0 (1 standard drink = 0.6 oz pur e alcohol) socially maybe once a month Sex and Gender Information Value Date Recorded Sex Assigned at Not on file Legal Sex Male 3:17 AM USPS LETTER CARRIER Gender Identity Not on file Sexual Orientation Not on file documented as of this encounter Plan of Treatment Not on file documented as of this encounter Procedures Procedure Name Priority Date/Time Associated Diagnosis Comments SPUTUM CULTURE WITH GRAM STAIN Routine 04/03/2023 12:10 PM CDT documented in this encounter Results * (ABNORMAL) SPUTUM CULTURE WITH GRAM STAIN (04/03/2023 12:10 PM CDT) CULTURE 1+ or few Burkholderia cepacia group(A) TASHA MCG/ML 04/06/2023 8:17 AM CDT [facility] GRAM STAIN Smear contains </=10 squamous epithelial cells per low power field 04/06/2023 8:17 AM CDT [facility] GRAM STAIN >25 PMN WBC/LPF 8:17 AM CDT [facility] GRAM STAIN No organisms observed 04/06/2023 8:17 AM CDT [facility] Sputum Collection / Unknown 04/03/2023 12:10 PM CDT 04/03/2023 3:30 PM CDT Narrative Organism Antibiotic Method Susceptibility Burkholderia cepacia group LEVOFLOXACIN TASHA MCG/ML 1 mcg/mL: Susceptible Burkholderia cepacia group TRIMETHOPRIM/ SULFAMETHOXAZOLE TASHA MCG/ML <=20 mcg/mL: Susceptible Burkholderia cepacia group CEFTAZIDIME TASHA MCG/ML 16 mcg/mL: Intermediate Burkholderia cepacia group MINOCYCLINE HEREDIA-VERA Susceptible Ileana Song MD MICROBIOLOGY - GENERAL ORDERABL ES Final Result [id number] [address] [place] [address] documented in this encounter Visit Diagnoses Not on filedocumented in this encounter Additional Health Concerns Infection Onset Date Last Indicated Resolved Time R/O C. 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 07/19/24 , negative MDRO sputum 09/08/24 ls 07/19/2024 07/19/2024 2:20 PM USPS LETTER CARRIER R/O COVID-19 08/08/2024 08/08/2024 08/08/2024 3:12 AM USPS LETTER CARRIER R/O COVID-19 09/07/2024 09/07/2024 09/07/2024 1:57 AM USPS LETTER CARRIER Respiratory Syncytial Virus (RSV) 09/07/2024 025 09/21/2024 1:16 AM CDT R/O Respiratory 09/25/2024 09/25/2024 09/26/2024 1 :06 AM CDT Respiratory Syncytial Virus (RSV) 09/25/2024 025 10/17/2024 1:16 AM CDT [facility] Resistant Organis m (MDRO) Comment:10/03/24: Sputum (Pseudomonas aeruginosa) 10/03/2024 10/03/2024 INTERTYPE OPERATOR Comment:10/03/24: Sputum (Pseudomonas aeruginosa) 10/03/2024 10/07/2024 R/O Respiratory 11/28/2024 11/28/2024 11/28/2024 7 :05 AM CDT Respiratory Syncytial Virus (RSV) 11/28/2024 025 12/12/2024 1:16 AM CDT R/O GI Pathogen 12/13/2024 12/13/2024 12/14/2024 1 2:34 AM CDT documented as of this encounter Care Teams Certified Breastfeeding Educator Relationship Specialty Start Date End Date Charles Clancy DO [address] [place] [address] PCP - General Family Practice 11/07/24 documented as of this encounter
--- OUTSIDE RECORDS SUMMARY | 2025-02-09 15:07 | XMS_ITS | Encounter Summary ---
Author Organization [facility] Address [address] [place] [address] Care Team Providers Care Service Line Bus Cleaner Name Role Phone Clancy, Charles Rock DO Primary Care Provider [phone] Encounter Details Date Type Department Care Team (Late st Contact Info) Description 10/21/2024 Lab Requisition [facility] Laboratory Services [address] [place] [address] [facility], External Provider [address] [place] [address] Social History Tobacco Use Types Packs/Day Years [...] on file Legal Sex Male 3:17 AM IT INFRASTRUCTURE ARCHITECT Gender Identity Not on file Sexual Orientation Not on file documented as of this encounter Plan of Treatment Not on file documented as of this encounter Procedures Procedure Name Priority Date/Time Associated Diagnosis Comments CBC WITH DIFFERENTIAL Routine 10/21/2024 3:10 AM CDT COMPREHENSIVE METABOLIC PANEL Routine 10/21/2024 3:10 AM CDT documented in this encounter Results * (ABNORMAL) CBC WITH DIFFERENTIAL (10/21/2024 3:10 AM CDT) [facility] WBC 5.3 4.8 - 10.8 K/uL 10/21/2024 6:34 AM [facility] RBC 4.82 4.60 - 6.20 M/uL 10/21/2024 6:34 AM [facility] HEMOGLOBIN 12.4(L) 14.0 - 18.0 g/dL 10/21/2024 6:34 AM [facility] HEMATOCRIT 40.7(L) 41.0 - 53.0 % 10/21/2024 6:34 AM [facility] MCV 84.4 84.0 - 103.0 fL 10/21/2024 6:34 AM [facility] MCH 25.7(L) 27.0 - 34.0 pg 10/21/2024 6:34 AM [facility] MCHC 30.5 30.0 - 35.0 g/dL 10/21/2024 6:34 AM [facility] PLATELETS 118(L) 140 - 440 K/uL 10/21/2024 6:34 AM [facility] MPV 11.8 8.9 - 12.8 fL 10/21/2024 6:34 AM [facility] RDW 17.4(H) 11.0 - 14.5 % 10/21/2024 6:34 AM [facility] RDW-STDEV 53.6 37.0 - 54.0 fL 10/21/2024 6:34 AM [facility] NEUTROPHILS 62 42 - 75 % 10/21/2024 6:34 AM [facility] LYMPHOCYTES 21(L) 24 - 44 % 10/21/2024 6:34 AM [facility] MONOCYTES 12(H) 2 - 10 % 10/21/2024 6:34 AM [facility] EOSINOPHILS 3 0 - 7 % 10/21/2024 6:34 AM [facility] BASOPHILS 1 0 - 1 % 10/21/2024 6:34 AM CDT [facility] IMMATURE GRANULOCYTES 1 0 - 2 % 10/21/2024 6:34 AM CDT [facility] NEUTROPHIL ABSOLUTE 3.30 2.00 - 8.00 K/uL 10/21/2024 6:34 AM CDT [facility] LYMPHOCYTE ABSOLUTE 1.13(L) 1.20 - 4.00 K/uL 10/21/2024 6:34 AM CDT [facility] MONOCYTE ABSOLUTE 0.63(H) 0.10 - 0.60 K/uL 10/21/2024 6:34 AM CDT [facility] EOSINOPHIL ABSOLUTE 0.14 0.00 - 0.70 K/uL 10/21/2024 6:34 AM CDT [facility] BASOPHILS ABSOLUTE 0.04 0.00 - 0.20 K/uL 10/21/2024 6:34 AM CDT [facility] IMMATURE GRANULOCYTES ABSOLUTE 0.04 0.00 - 0.10 K/uL 10/21/2024 6:34 AM T [facility] SMEAR REVIEWED: NA - Not Applicable 10/21/2024 6:34 AM T [facility] Blood Collection / Unknown 10/21/2024 3:10 AM CDT 10/21/2024 6:33 AM CDT us External Provider [facility] HEMATOLOGY ORDERABLES Saundra l Result Performing Organization Address City/State/[facility] Co de Phone Number [facility] CLIA # [id number] [address] [place] [address] * (ABNORMAL) COMPREHENSIVE METABOLIC PANEL (10/21/2024 3:10 AM CDT) [facility] SODIUM 137 136 - 145 mmol/L 10/21/2024 6:55 AM CDT [facility] POTASSIUM 3.7 3.5 - 5.1 mmol/L 10/21/2024 6:55 AM CDT [facility] CHLORIDE 99 98 - 107 mmol/L 10/21/2024 6:55 AM [facility] CO2 25 22 - 29 mmol/L 10/21/2024 6:55 AM [facility] CALCIUM 9.4 8.8 - 10.2 mg/dL 10/21/2024 6:55 AM [facility] BUN 27(H) 8 - 23 mg/dL 10/21/2024 6:55 AM [facility] CREATININE 0.35(L) 0.67 - 1.17 mg/dL 10/21/2024 6:55 AM [facility] GLUCOSE 117(H) 74 - 99 mg/dL 10/21/2024 6:55 AM [facility] TOTAL PROTEIN 6.1(L) 6.4 - 8.3 g/dL 10/21/2024 6:55 AM [facility] ALBUMIN 3.4(L) 3.5 - 5.2 g/dL 10/21/2024 6:55 AM [facility] BILIRUBIN TOTAL 0.3 0.2 - 1.0 mg/dL 10/21/2024 6:55 AM [facility] ALKALINE PHOSPHATASE 87 40 - 129 U/L 10/21/2024 6:55 AM [facility] AST 29 10 - 50 U/L 10/21/2024 6:55 AM [facility] ALT 34 <=50 U/L 10/21/2024 6:55 AM [facility] GFR >60 >=60 mL/min/1. 73 sq meter 10/21/2024 6:55 AM [facility] Comment:eGFR calculated with 2020 CKD-EPI equation. Vegetarian diet, extremely high or low muscle mass, and may affect results. Cystatin C with Glomerular Filtration Rate is a suitable alternative for these patients. 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
--- OUTSIDE RECORDS SUMMARY | 2025-02-09 15:07 | XMS_ITS | Encounter Summary ---
Author Organization [facility] Address [address] [place] [address] Care Team Providers Care Mechanical Field Engineer Name Role Phone Aston Charles Rock DO Primary Care Provider [phone] Encounter Details Date Type Department Care Team (Late st Contact Info) Description 03/27/2023 Lab Requisition [facility] Laboratory Services [address] [place] [address] Ileana Song MD [address] [place] [address] Social History Tobacco Use Types Packs/Day Years Used Date Smoking Tobacco: Former Cigarettes Q uit: 1998 Smokeless Tobacco: Former Snuff, Chew Alcohol Use Standard Drinks/Week Comments Yes 0 (1 standard drink = 0.6 oz pur e alcohol) socially maybe once a month Sex and Gender Information Value Date Recorded Sex Assigned at Not on file Legal Sex Male 3:17 AM MASTER RIGGER Gender Identity Not on file Sexual Orientation Not on file documented as of this encounter Plan of Treatment Not on file documented as of this encounter Procedures Procedure Name Priority Date/Time Associated Diagnosis Comments DIFFERENTIAL, MANUAL Routine 03/27/2023 3:20 AM CDT CBC WITH DIFFERENTIAL Routine 03/27/2023 3:20 AM CDT COMPREHENSIVE METABOLIC PANEL Routine 03/27/2023 3:20 AM CDT documented in this encounter Results * MANUAL DIFFERENTIAL (03/27/2023 3:20 AM CDT) [facility] PLATELET EST. Decreased 03/27/2023 6:28 AM CDT [facility] ANISOCYTOSIS 3+ /hpf 03/27/2023 6:28 AM CDT [facility] POIKILOCYTES 1+ /hpf 03/27/2023 6:28 AM CDT [facility] POLYCHROMASIA 2+ /hpf 03/27/2023 6:28 AM CDT [facility] HYPOCHROMIA 2+ /hpf 03/27/2023 6:28 AM CDT [facility] Blood Collection / Unknown 03/27/2023 3:20 AM CDT 03/27/2023 5:34 AM CDT us Ileana Song MD HEMATOLOGY ORDERABLES COM Final Result Performing Organization Address City/State/[facility] Co de Phone Number [facility] CLIA # [id number] [facility] [address] * (ABNORMAL) CBC WITH DIFFERENTIAL (03/27/2023 3:20 AM CDT) [facility] WBC 3.3(L) 4.8 - 10.8 K/uL 03/27/2023 6:28 AM CDT [facility] RBC 3.23(L) 4.60 - 6.20 M/uL 03/27/2023 6:28 AM CDT [facility] HEMOGLOBIN 9.3(L) 14.0 - 18.0 g/dL 03/27/2023 6:28 AM CDT [facility] HEMATOCRIT 33.3(L) 41.0 - 53.0 % 03/27/2023 6:28 AM CDT [facility] MCV 103.1(H) 84.0 - 103.0 fL 03/27/2023 6:28 AM CDT [facility] MCH 28.8 27.0 - 34.0 pg 03/27/2023 6:28 AM [facility] MCHC 27.9(L) 30.0 - 35.0 g/dL 03/27/2023 6:28 AM [facility] RDW 22.2(H) 11.0 - 14.5 % 03/27/2023 6:28 AM [facility] RDW-STDEV 81.9(H) 37.0 - 54.0 fL 03/27/2023 6:28 AM T [facility] PLATELETS 69(L) 140 - 440 K/uL 03/27/2023 6:28 AM [facility] MPV 11.8 8.9 - 12.8 fL 03/27/2023 6:28 AM [facility] NEUTROPHILS 73 42 - 75 % 03/27/2023 6:28 AM [facility] LYMPHOCYTES 20(L) 24 - 44 % 03/27/2023 6:28 AM [facility] MONOCYTES 5 2 - 10 % 03/27/2023 6:28 AM [facility] EOSINOPHILS 1 0 - 7 % 03/27/2023 6:28 AM [facility] BASOPHILS 0 0 - 1 % 03/27/2023 6:28 AM [facility] IMMATURE GRANULOCYTES 1 0 - 2 % 03/27/2023 6:28 AM [facility] NEUTROPHIL ABSOLUTE 2.44 2.00 - 8.00 K/uL 03/27/2023 6:28 AM [facility] LYMPHOCYTE ABSOLUTE 0.68(L) 1.20 - 4.00 K/uL 03/27/2023 6:28 AM [facility] MONOCYTE ABSOLUTE 0.16 0.10 - 0.60 K/uL 03/27/2023 6:28 AM [facility] EOSINOPHIL ABSOLUTE 0.03 0.00 - 0.70 K/uL 03/27/2023 6:28 AM [facility] BASOPHILS ABSOLUTE 0.01 0.00 - 0.20 K/uL 03/27/2023 6:28 AM T [facility] IMMATURE GRANULOCYTES ABSOLUTE 0.02 0.00 - 0.10 K/uL 03/27/2023 6:28 AM T [facility] Blood Collection / Unknown 03/27/2023 3:20 AM CDT 03/27/2023 5:34 AM CDT us Ileana Song MD HEMATOLOGY ORDERABLES Final Res ult [facility] CLIA # [id number] [address] [place] [address] * (ABNORMAL) COMPREHENSIVE METABOLIC PANEL (03/27/2023 3:20 AM CDT) SODIUM 156(H) 136 - 145 mmol/L 03/27/2023 6:02 AM [facility] POTASSIUM 4.3 3.5 - 5.1 mmol/L 03/27/2023 6:02 AM [facility] CHLORIDE 124(H) 98 - 107 mmol/L 03/27/2023 6:02 AM [facility] CO2 26 22 - 29 mmol/L 03/27/2023 6:02 AM [facility] CALCIUM 8.4(L) 8.8 - 10.2 mg/dL 03/27/2023 6:02 AM [facility] BUN 31(H) 8 - 23 mg/dL 03/27/2023 6:02 AM [facility] CREATININE 0.51(L) 0.67 - 1.17 mg/dL 03/27/2023 6:02 AM [facility] GLUCOSE 207(H) 74 - 99 mg/dL 03/27/2023 6:02 AM [facility] TOTAL PROTEIN 5.3(L) 6.4 - 8.3 g/dL 03/27/2023 6:02 AM [facility] ALBUMIN 2.5(L) 3.5 - 5.2 g/dL 03/27/2023 6:02 AM [facility] BILIRUBIN TOTAL 0.4 0.2 - 1.0 mg/dL 03/27/2023 6:02 AM [facility] ALKALINE PHOSPHATASE 82 40 - 129 U/L 03/27/2023 6:02 AM [facility] AST 36 10 - 50 U/L 03/27/2023 6:02 AM [facility] ALT 100(H) <=50 U/L 03/27/2023 6:02 AM [facility] GFR >60 >=60 mL/min/1. 73 sq meter 03/27/2023 6:02 AM [facility] Comment:eGFR calculated with 2020 CKD-EPI equation. Vegetarian diet, extremely high or low muscle mass, and may affect results. Cystatin C with Glomerular Filtration Rate is a suitable alternative for these patients. ANION GAP 6(L) 9 - 20 mmol/L 03/27/2023 6:02 AM [facility] Blood Collection / Unknown 03/27/2023 3:20 AM CDT 03/27/2023 5:38 AM CDT us Ileana Song MD CHEMISTRY ORDERABLES Final Resu lt [facility] CLIA # [id number] [address] [place] [address] documented in this encounter Visit Diagnoses Not on filedocumented in this encounter Additional Health Concerns Infection Onset Date Last Indicated Resolved Time R/O C. 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 Respiratory Syncytial Virus (RSV) 09/07/2024 025 09/21/2024 1:16 AM CDT R/O Respiratory 09/25/2024 09/25/2024 09/26/2024 1 :06 AM CDT Respiratory Syncytial Virus (RSV) 09/25/2024 025 10/17/2024 1:16 AM CDT Multi [facility] Resistant Organis m (MDRO) Comment:10/03/24: Sputum (Pseudomonas aeruginosa) 10/03/2024 10/03/2024 DIRECTOR GOVERNMENT Comment:10/03/24: Sputum (Pseudomonas aeruginosa) 10/03/2024 10/07/2024 R/O Respiratory 11/28/2024 11/28/2024 11/28/2024 7 :05 AM CDT Respiratory Syncytial Virus (RSV) 11/28/2024 025 12/12/2024 1:16 AM CDT R/O GI Pathogen 12/13/2024 12/13/2024 12/14/2024 1 2:34 AM CDT documented as of this encounter 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
--- OUTSIDE RECORDS SUMMARY | 2025-02-09 15:07 | XMS_ITS | Encounter Summary ---
Author Organization [facility] Address [address] [place] [address] Care Team Providers Care Shift Engineer Name Role Phone Clancy, Charles Rock DO Primary Care Provider [phone] Encounter Details Date Type Department Care Team (Late st Contact Info) Description 04/05/2023 Lab Requisition [facility] Laboratory Services [address] [place] [address] La Fernando PA-C [address] [place] [address] Social History Tobacco Use Types Packs/Day Years Used Date Smoking Tobacco: Former Cigarettes Q uit: 1998 Smokeless Tobacco: Former Snuff, Chew Alcohol Use Standard Drinks/Week Comments Yes 0 (1 standard drink = 0.6 oz pur e alcohol) socially maybe once a month Sex and Gender Information Value Date Recorded Sex Assigned at Not on file Legal Sex Male 3:17 AM BROADCAST METEOROLOGIST Gender Identity Not on file Sexual Orientation Not on file documented as of this encounter Plan of Treatment Not on file documented as of this encounter Procedures Procedure Name Priority Date/Time Associated Diagnosis Comments SODIUM, RANDOM URINE Routine 04/05/2023 5:20 PM CDT OSMOLALITY, URINE Routine 04/05/2023 5:2 0 PM CDT documented in this encounter Results * SODIUM, RANDOM URINE (04/05/2023 5:20 PM CDT) SODIUM, URINE 41 mmol/L 04/05/2023 8:03 PM CDT [facility] Urine URINE SPECIMEN OBTAINED BY CLEAN CATCH PROCEDURE / Unknown Collection / Unknown 04/05/2023 5:20 PM CDT 04/05/2023 6:39 PM CDT La Fernando PA-C URINE ORDERABLES Final Result Performing Organization Address [facility] de Phone Number [facility] CLIA # [id number] [address] [id number] * OSMOLALITY, URINE (04/05/2023 5:20 PM CDT) OSMOLALITY, URINE 889 50 - 1,200 mOsm/kg 04/05/2023 8:03 PM CDT [facility] Urine URINE SPECIMEN OBTAINED BY CLEAN CATCH PROCEDURE / Unknown Collection / Unknown 04/05/2023 5:20 PM CDT 04/05/2023 6:39 PM CDT Narrative [facility] - 04/05/2023 8:03 PM CDT Reference range: 50-1200 mOsm/kg H2O, depending on fluid intake. La Fernando PA-C URINE ORDERABLES Final Result Performing Organization Address [facility] Phone Number [facility] CLIA # [id number] [address] [address] documented in this encounter Visit Diagnoses Not on filedocumented in this encounter Additional Health Concerns Infection Onset Date Last Indicated Resolved Time R/O C. diff 04/19/2023 04/19/2023 04/19/2023 3:44 AM CDT R/O COVID-19 07/09/2024 07/09/2024 07/09/2024 5:41 PM BROADCAST METEOROLOGIST R/O GI Pathogen 07/09/2024 07/09/2024 07/10/2024 8 :40 AM BROADCAST METEOROLOGIST C Diff 07/09/2024 07/09/2024 09/13/2024 1:16 AM BROADCAST METEOROLOGIST Multi Drug Resistant Organis m (MDRO) Comment:MDRO sputum 07/19/24 , negative MDRO sputum 09/08/24 ls 07/19/2024 07/19/2024 2:20 PM BROADCAST METEOROLOGIST R/O COVID-19 08/08/2024 08/08/2024 08/08/2024 3:12 AM BROADCAST METEOROLOGIST R/O COVID-19 09/07/2024 09/07/2024 09/07/2024 1:57 AM BROADCAST METEOROLOGIST Respiratory Syncytial Virus (RSV) 09/07/2024 025 09/21/2024 1:16 AM CDT R/O Respiratory 09/25/2024 09/25/2024 09/26/2024 1 :06 AM CDT Respiratory Syncytial Virus (RSV) 09/25/2024 025 10/17/2024 1:16 AM CDT [facility] Resistant [facility]is m (MDRO) Comment:10/03/24: Sputum (Pseudomonas aeruginosa) 10/03/2024 10/03/2024 HOME THEATER SPECIALIST Comment:10/03/24: Sputum (Pseudomonas aeruginosa) 10/03/2024 10/07/2024 R/O Respiratory 11/28/2024 11/28/2024 11/28/2024 7 :05 AM CDT Respiratory Syncytial Virus (RSV) 11/28/2024 025 12/12/2024 1:16 AM CDT R/O GI Pathogen 12/13/2024 12/13/2024 12/14/2024 1 2:34 AM CDT documented as of this encounter Care Teams Shift Engineer Relationship Specialty Start Date End Date Charles Clancy DO [address] [place] [address] PCP - General Family Practice 11/07/24 documented as of this encounter
--- OUTSIDE RECORDS SUMMARY | 2025-02-09 15:07 | XMS_ITS | Encounter Summary ---
Author Organization [facility] Address [address] [place] [address] Care Team Providers Care Supervisor Waterworks Name Role Phone Aston Charles Rock DO Primary Care Provider [phone] Encounter Details Date Type Department Care Team (Late st Contact Info) Description 04/03/2023 Lab Requisition [facility] Laboratory Services [address] [place] [phone] Ileana Song MD [address] [place] [address] Social History Tobacco Use Types Packs/Day Years Used Date Smoking Tobacco: Former Cigarettes Q uit: 1998 Smokeless Tobacco: Former Snuff, Chew Alcohol Use Standard Drinks/Week Comments Yes 0 (1 standard drink = 0.6 oz pur e alcohol) socially maybe once a month Sex and Gender Information Value Date Recorded Sex Assigned at Not on file 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 Sex 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 Gender Identity Not on file Sexual Orientation Not on file documented as of this encounter Plan of Treatment Not on file documented as of this encounter Procedures Procedure Name Priority Date/Time Associated Diagnosis Comments PROCALCITONIN Routine 04/03/2023 11:10 AM CDT LACTIC ACID Stat 04/03/2023 11:10 AM CDT BLOOD CULTURE Routine 04/03/2023 11:10 AM CDT BLOOD CULTURE Routine 04/03/2023 11:10 AM CDT documented in this encounter Results * (ABNORMAL) PROCALCITONIN (04/03/2023 11:10 AM CDT) PROCALCITONIN 0.55(H) <=0.08 ng/mL 04/03/2023 1:11 PM CDT [facility] [employer] [facility] Blood Collection / Unknown 04/03/2023 11:10 AM CDT 04/03/2023 12:43 PM CDT Narrative [facility] [employer] [facility] - 04/03/2023 1:11 PM CDT The utility of procalcitonin is limited/NOT recommended in certain populations (e.g. newborns, dialysis/ESRD, patients with recent major surgery/trauma/wan, liver cirrhosis, viral hepatitis, certain cancers, etc.). Procalcitonin levels MUST be interpreted in the context of the patient's clinical condition and CANNOT be solely relied upon for diagnosis of infection. <0.25 ng/mL: Bacterial infection unlikely, particularly lower respiratory tract infections. <0.5 ng/mL: Low risk for progression to severe sepsis/septic shock. Localized infection possible. Measurements done early (<6 hours) after systemic process starts may still be low. 0.5-2 ng/mL: Moderate risk for progression to severe sepsis/septic shock. >2 ng/mL: High risk for progression to severe sepsis/septic shock. If antibiotics ARE administered, repeat testing is recommended every 2-3 days to help guide antibiotic cessation. Once a decrease of 80% or more has occurred from baseline, discontinuation of antibiotics should strongly be considered in clinically stable patients. Procalcitonin is produced in the setting of systemic inflammation, particularly bacterial infections. It is detectable within 2-4 hours and peaks within 6-24 hours. us Ileana Song MD CHEMISTRY ORDERABLES Final Resu lt [facility] [employer] [facility] CLIA # [id number] [address] [address] * (ABNORMAL) LACTIC ACID (04/03/2023 11:10 AM CDT) LACTIC ACID 2.3(H) <=2.0 mmol/L 04/03/2023 12:53 PM CDT [facility] Blood Collection / Unknown 04/03/2023 11:10 AM CDT 04/03/2023 12:29 PM CDT Ileana Song MD CHEMISTRY ORDERABLES Final Resu lt [facility] CLIA # [id number] [address] [address] [place], [place] [address] * BLOOD CULTURE (04/03/2023 11:10 AM CDT) BLOOD CULTURE No growth 04/08/2023 1:21 PM CDT [facility] Blood Collection / Unknown 04/03/2023 11:10 AM CDT 04/03/2023 12:30 PM CDT Ileana Song MD MICROBIOLOGY - GENERAL ORDERABL ES Final Result Performing Organization Address [facility] de Phone Number [facility] CLIA # [id number] [address] [place] [address] * BLOOD CULTURE (04/03/2023 11:10 AM CDT) BLOOD CULTURE No growth 04/08/2023 1:21 PM CDT [facility] Blood Collection / Unknown 04/03/2023 11:10 AM CDT 04/03/2023 12:29 PM CDT Ileana Song MD MICROBIOLOGY - GENERAL ORDERABL ES Final Result Performing Organization Address City/[facility]/ZIP Co de Phone Number [facility] CLIA # [id number] [address] [place] [address] [place] [address] documented in this encounter Visit Diagnoses Not on filedocumented in this encounter Additional Health Concerns Infection Onset Date Last Indicated Resolved Time R/O C. 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:MDRO sputum 07/19/24 , negative MDRO sputum 09/08/24 ls 07/19/2024 07/19/2024 2:20 PM RIVERBOAT CAPTAIN R/O COVID-19 08/08/2024 08/08/2024 08/08/2024 3:12 AM RIVERBOAT CAPTAIN R/O COVID-19 09/07/2024 09/07/2024 09/07/2024 1:57 AM RIVERBOAT CAPTAIN Respiratory Syncytial Virus (RSV) 09/07/2024 025 09/21/2024 1:16 AM CDT R/O Respiratory 09/25/2024 09/25/2024 09/26/2024 1 :06 AM CDT Respiratory Syncytial Virus (RSV) 09/25/2024 025 10/17/2024 1:16 AM CDT Multi [facility] Resistant Organis m (MDRO) Comment:10/03/24: Sputum (Pseudomonas aeruginosa) 10/03/2024 10/03/2024 VISUAL ASSOCIATE Comment:10/03/24: Sputum (Pseudomonas aeruginosa) 10/03/2024 10/07/2024 R/O Respiratory 11/28/2024 11/28/2024 11/28/2024 7 :05 AM CDT Respiratory Syncytial Virus (RSV) 11/28/2024 025 12/12/2024 1:16 AM CDT R/O GI Pathogen 12/13/2024 12/13/2024 12/14/2024 1 2:34 AM CDT documented as of this encounter Care Teams Supervisor Waterworks Relationship Specialty Start Date End Date Charles Clancy DO [address] [place] [facility] [place] [phone] PCP - General Family Practice 11/07/24 documented as of this encounter
[2025-02-09 15:08] VITALS: BP 104/58; PULSE 92; RESP 17; TEMP 37.2; O2SAT 97; BMI 24.3
--- OUTSIDE RECORDS SUMMARY | 2025-02-09 15:08 | XMS_ITS | Encounter Summary ---
Author Organization [facility] Address [address] [place] [address] Care Team Providers Care Supervisor Self Service Store Name Role Phone ClancyCharles DO Primary Care Provider [phone] Encounter Details Date Type Department Care Team (Late st Contact Info) Description 04/11/2023 Lab Requisition [facility] Laboratory Services [address] [place] [address] [place] [address] Geovanny Vyas, HILARIA [address] [facility] [address] [place] [address] Social History Tobacco Use Types Packs/Day Years Used Date Smoking Tobacco: Former Cigarettes Q uit: 1998 Smokeless Tobacco: Former Snuff, Chew Alcohol Use Standard Drinks/Week Comments Yes 0 (1 standard drink = 0.6 oz pur e alcohol) socially maybe once a month Sex and Gender Information Value Date Recorded Sex Assigned at Not on file Legal Sex Male 3:17 AM 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 diff 04/19/2023 04/19/2023 04/19/2023 3:44 AM CDT R/O COVID-19 07/09/2024 07/09/2024 07/09/2024 5:41 PM SUPERINTENDENT MARINE R/O GI Pathogen 07/09/2024 07/09/2024 07/10/2024 8 :40 AM SUPERINTENDENT MARINE C Diff 07/09/2024 07/09/2024 09/13/2024 1:16 AM SUPERINTENDENT MARINE Multi Drug Resistant Organis m (MDRO) Comment:MDRO sputum 07/19/24 , negative MDRO sputum 09/08/24 ls 07/19/2024 07/19/2024 2:20 PM SUPERINTENDENT MARINE R/O COVID-19 08/08/2024 08/08/2024 08/08/2024 3:12 AM SUPERINTENDENT MARINE R/O COVID-19 09/07/2024 09/07/2024 09/07/2024 1:57 AM SUPERINTENDENT MARINE Respiratory Syncytial Virus (RSV) 09/07/2024 025 09/21/2024 1:16 AM CDT R/O Respiratory 09/25/2024 09/25/2024 09/26/2024 1 :06 AM CDT Respiratory Syncytial Virus (RSV) 09/25/2024 025 10/17/2024 1:16 AM CDT Multi Drug Resistant Organis m (MDRO) Comment:10/03/24: Sputum (Pseudomonas aeruginosa) 10/03/2024 10/03/2024 LABORER SYRUP MACHINE Comment:10/03/24: Sputum (Pseudomonas aeruginosa) 10/03/2024 10/07/2024 R/O Respiratory 11/28/2024 11/28/2024 11/28/2024 7 :05 AM CDT Respiratory Syncytial Virus (RSV) 11/28/2024 025 12/12/2024 1:16 AM CDT R/O GI Pathogen 12/13/2024 12/13/2024 12/14/2024 1 2:34 AM CDT documented as of this encounter Care Teams Supervisor Self Service Store Relationship Specialty Start Date End Date Charles Clancy DO [address] [place] [address] PCP - General Family Practice 11/07/24 documented as of this encounter
--- OUTSIDE RECORDS SUMMARY | 2025-02-09 15:08 | XMS_ITS | Encounter Summary ---
Author Organization [facility] Address [address] [place] [address] Care Team Providers Care Cook Helper Preserves Name Role Phone [place] DO Primary Care Provider [phone] Encounter Details Date Type Department Care Team (Late st Contact Info) Description 04/10/2023 Lab Requisition [facility] Laboratory Services [address] [place] [address] [facility], External Provider [address] [place] [address] Social History Tobacco Use Types Packs/Day Years Used Date Smoking Tobacco: Former Cigarettes Q uit: 1998 Smokeless Tobacco: Former Snuff, Chew Alcohol Use Standard Drinks/Week Comments Yes 0 (1 standard drink = 0.6 oz pur e alcohol) socially maybe once a month Sex and Gender Information Value Date Recorded Sex Assigned at Not on file Legal Sex Male 3:17 AM TURBINE INSPECTOR Gender Identity Not on file Sexual Orientation Not on file documented as of this encounter Plan of Treatment Not on file documented as of this encounter Procedures Procedure Name Priority Date/Time Associated Diagnosis Comments CBC WITH DIFFERENTIAL Routine 04/10/2023 3:15 AM CDT COMPREHENSIVE METABOLIC PANEL Routine 04/10/2023 3:15 AM CDT documented in this encounter Results * (ABNORMAL) CBC WITH DIFFERENTIAL (04/10/2023 3:15 AM CDT) WBC 9.4 4.8 - 10.8 K/uL 04/10/2023 7:59 AM [facility] RBC 3.68(L) 4.60 - 6.20 M/uL 04/10/2023 7:59 AM [facility] HEMOGLOBIN 10.4(L) 14.0 - 18.0 g/dL 04/10/2023 7:59 AM [facility] HEMATOCRIT 34.9(L) 41.0 - 53.0 % 04/10/2023 7:59 AM [facility] MCV 94.8 84.0 - 103.0 fL 04/10/2023 7:59 AM [facility] MCH 28.3 27.0 - 34.0 pg 04/10/2023 7:59 AM [facility] MCHC 29.8(L) 30.0 - 35.0 g/dL 04/10/2023 7:59 AM [facility] RDW 19.7(H) 11.0 - 14.5 % 04/10/2023 7:59 AM [facility] RDW-STDEV 67.1(H) 37.0 - 54.0 fL 04/10/2023 7:59 AM [facility] PLATELETS 336 140 - 440 K/uL 04/10/2023 7:59 AM [facility] MPV 11.2 8.9 - 12.8 fL 04/10/2023 7:59 AM [facility] NEUTROPHILS 83(H) 42 - 75 % 04/10/2023 7:59 AM [facility] LYMPHOCYTES 8(L) 24 - 44 % 04/10/2023 7:59 AM [facility] MONOCYTES 6 2 - 10 % 04/10/2023 7:59 AM [facility] EOSINOPHILS 0 0 - 7 % 04/10/2023 7:59 AM [facility] BASOPHILS 0 0 - 1 % 04/10/2023 7:59 AM [facility] IMMATURE GRANULOCYTES 2 0 - 2 % 04/10/2023 7:59 AM CDT [facility] NEUTROPHIL ABSOLUTE 7.82 2.00 - 8.00 K/uL 04/10/2023 7:59 AM CDT [facility] LYMPHOCYTE ABSOLUTE 0.76(L) 1.20 - 4.00 K/uL 04/10/2023 7:59 AM CDT [facility] MONOCYTE ABSOLUTE 0.58 0.10 - 0.60 K/uL 04/10/2023 7:59 AM CDT [facility] EOSINOPHIL ABSOLUTE 0.01 0.00 - 0.70 K/uL 04/10/2023 7:59 AM CDT [facility] BASOPHILS ABSOLUTE 0.03 0.00 - 0.20 K/uL 04/10/2023 7:59 AM CDT [facility] IMMATURE GRANULOCYTES ABSOLUTE 0.22(H) 0.00 - 0.10 K/uL 04/10/2023 7:59 AM CDT [facility] Blood Collection / Unknown 04/10/2023 3:15 AM CDT 04/10/2023 7:58 AM CDT us External Provider [facility] HEMATOLOGY ORDERABLES Saundra dominguez Result [facility] CLIA # [id number] [address] [place] [address] * (ABNORMAL) COMPREHENSIVE METABOLIC PANEL (04/10/2023 3:15 AM CDT) SODIUM 138 136 - 145 mmol/L 04/10/2023 8:11 AM CDT [facility] POTASSIUM 3.3(L) 3.5 - 5.1 mmol/L 04/10/2023 8:11 AM CDT [facility] CHLORIDE 104 98 - 107 mmol/L 04/10/2023 8:11 AM CDT [facility] CO2 26 22 - 29 mmol/L 04/10/2023 8:11 AM [facility] CALCIUM 7.6(L) 8.8 - 10.2 mg/dL 04/10/2023 8:11 AM [facility] BUN 14 8 - 23 mg/dL 04/10/2023 8:11 AM [facility] CREATININE 0.19(L) 0.67 - 1.17 mg/dL 04/10/2023 8:11 AM [facility] GLUCOSE 135(H) 74 - 99 mg/dL 04/10/2023 8:11 AM [facility] TOTAL PROTEIN 4.5(L) 6.4 - 8.3 g/dL 04/10/2023 8:11 AM [facility] ALBUMIN 2.4(L) 3.5 - 5.2 g/dL 04/10/2023 8:11 AM [facility] BILIRUBIN TOTAL 0.3 0.2 - 1.0 mg/dL 04/10/2023 8:11 AM [facility] ALKALINE PHOSPHATASE 71 40 - 129 U/L 04/10/2023 8:11 AM [facility] AST 28 10 - 50 U/L 04/10/2023 8:11 AM [facility] ALT 39 <=50 U/L 04/10/2023 8:11 AM [facility] GFR >60 >=60 mL/min/1. 73 sq meter 04/10/2023 8:11 AM [facility] Comment:eGFR calculated with 2020 CKD-EPI equation. Vegetarian diet, extremely high or low muscle mass, and may affect results. Cystatin C with Glomerular Filtration Rate is a suitable alternative for these patients. ANION GAP 8(L) 9 - 20 mmol/L 04/10/2023 8:11 AM [facility] Blood Collection / Unknown 04/10/2023 3:15 AM CDT 04/10/2023 8:11 AM CDT us External Provider [facility] CHEMISTRY ORDERABLES Final Result [id number] [address] [place] [address] [place] [address] documented in this encounter Visit Diagnoses Not on filedocumented in this encounter Additional Health Concerns Infection Onset Date Last Indicated Resolved Time R/O C. diff 04/19/2023 04/19/2023 04/19/2023 3:44 AM CDT R/O COVID-19 07/09/2024 07/09/2024 07/09/2024 5:41 PM TURBINE INSPECTOR R/O GI Pathogen 07/09/2024 07/09/2024 07/10/2024 8 :40 AM TURBINE INSPECTOR C Diff 07/09/2024 07/09/2024 09/13/2024 1:16 AM TURBINE INSPECTOR Multi Drug Resistant Organis m (MDRO) Comment:MDRO sputum 07/19/24 , negative MDRO sputum 09/08/24 ls 07/19/2024 07/19/2024 2:20 PM TURBINE INSPECTOR R/O COVID-19 08/08/2024 08/08/2024 08/08/2024 3:12 AM TURBINE INSPECTOR R/O COVID-19 09/07/2024 09/07/2024 09/07/2024 1:57 AM TURBINE INSPECTOR Respiratory Syncytial Virus (RSV) 09/07/2024 025 09/21/2024 1:16 AM CDT R/O Respiratory 09/25/2024 09/25/2024 09/26/2024 1 :06 AM CDT Respiratory Syncytial Virus (RSV) 09/25/2024 025 10/17/2024 1:16 AM CDT Multi Drug Resistant Organis m (MDRO) Comment:10/03/24: Sputum (Pseudomonas aeruginosa) 10/03/2024 10/03/2024 BELT LOOP MAKER Comment:10/03/24: Sputum (Pseudomonas aeruginosa) 10/03/2024 10/07/2024 R/O Respiratory 11/28/2024 11/28/2024 11/28/2024 7 :05 AM CDT Respiratory Syncytial Virus (RSV) 11/28/2024 025 12/12/2024 1:16 AM CDT R/O GI Pathogen 12/13/2024 12/13/2024 12/14/2024 1 2:34 AM CDT documented as of this encounter Care Teams Cook Helper Preserves Relationship Specialty Start Date End Date Charles Clancy DO [address] [place] [address] PCP - General Family Practice 11/07/24 documented as of this encounter
--- OUTSIDE RECORDS SUMMARY | 2025-02-09 15:08 | XMS_ITS | Encounter Summary ---
Author Organization [employer] [facility] Address [address] [place] [address] Care Team Providers Care Improvement Spec Name Role Phone Aristeo Rebollar MD Primary Care Provider [phone] Encounter Details Date Type Department Care Team (Late st Contact Info) Description 03/29/1999 Outpatient Historical [facility] Curt Rosales MD [address] [place], [place] [id number] Migraine without aura, without mention of intractable migraine without mention of status migrainosus (Primary Dx) Social History Tobacco Use Types Packs/Day Years Used Date Smoking Tobacco: Never Assessed Sex and Gender Information Value Date Recorded Sex Assigned at Not on file Legal Sex Male 4:09 AM CHART WRITER Gender Identity Not on file Sexual Orientation Not on file documented as of this encounter Plan of Treatment Not on file documented as of this encounter Visit Diagnoses Diagnosis Migraine without aura, without mention of intractable migraine without mention of status migrainosus- Primary documented in this encounter Care Teams Improvement Spec Relationship Specialty Start Date End Date Aristeo Rebollar MD [address] [place] [address] PCP - General Internal Medicine 10/12/20 documented as of this encounter
--- OUTSIDE RECORDS SUMMARY | 2025-02-09 15:08 | XMS_ITS | Encounter Summary ---
Author Organization [facility] Address [address] [place] [address] Care Team Providers Care Deputy Fire Chief Name Role Phone ClancyCharles DO Primary Care Provider [phone] Encounter Details Date Type Department Care Team (Late st Contact Info) Description 04/17/2023 Lab Requisition [facility] Laboratory Services [address] [place] [phone] Geovanny Vyas, HILARIA [address] [facility] [address] [place] [address] Social History Tobacco Use Types Packs/Day Years Used Date Smoking Tobacco: Former Cigarettes Q uit: 1998 Smokeless Tobacco: Former Snuff, Chew Alcohol Use Standard Drinks/Week Comments Yes 0 (1 standard drink = 0.6 oz pur e alcohol) socially maybe once a month Sex and Gender Information Value Date Recorded Sex Assigned at Not on file Legal Sex 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 Gender Identity Not on file Sexual Orientation Not on file documented as of this encounter Plan of Treatment Not on file documented as of this encounter Procedures Procedure Name Priority Date/Time Associated Diagnosis Comments CBC WITH DIFFERENTIAL Routine 04/17/2023 4:15 AM CDT COMPREHENSIVE METABOLIC PANEL Routine 04/17/2023 4:15 AM CDT documented in this encounter Results * (ABNORMAL) CBC WITH DIFFERENTIAL (04/17/2023 4:15 AM CDT) [facility] WBC 10.6 4.8 - 10.8 K/uL 04/17/2023 9:03 AM [facility] RBC 4.18(L) 4.60 - 6.20 M/uL 04/17/2023 9:03 AM [facility] HEMOGLOBIN 11.6(L) 14.0 - 18.0 g/dL 04/17/2023 9:03 AM [facility] HEMATOCRIT 41.1 41.0 - 53.0 % 04/17/2023 9:03 AM [facility] MCV 98.3 84.0 - 103.0 fL 04/17/2023 9:03 AM [facility] MCH 27.8 27.0 - 34.0 pg 04/17/2023 9:03 AM [facility] MCHC 28.2(L) 30.0 - 35.0 g/dL 04/17/2023 9:03 AM [facility] RDW 19.0(H) 11.0 - 14.5 % 04/17/2023 9:03 AM [facility] RDW-STDEV 68.6(H) 37.0 - 54.0 fL 04/17/2023 9:03 AM [facility] PLATELETS 237 140 - 440 K/uL 04/17/2023 9:03 AM [facility] MPV 10.8 8.9 - 12.8 fL 04/17/2023 9:03 AM [facility] NEUTROPHILS 88(H) 42 - 75 % 04/17/2023 9:03 AM [facility] LYMPHOCYTES 5(L) 24 - 44 % 04/17/2023 9:03 AM [facility] MONOCYTES 6 2 - 10 % 04/17/2023 9:03 AM [facility] EOSINOPHILS 0 0 - 7 % 04/17/2023 9:03 AM [facility] BASOPHILS 0 0 - 1 % 04/17/2023 9:03 AM CDT [facility] IMMATURE GRANULOCYTES 1 0 - 2 % 04/17/2023 9:03 AM CDT [facility] NEUTROPHIL ABSOLUTE 9.34(H) 2.00 - 8.00 K/uL 04/17/2023 9:03 AM CDT [facility] LYMPHOCYTE ABSOLUTE 0.54(L) 1.20 - 4.00 K/uL 04/17/2023 9:03 AM CDT [facility] MONOCYTE ABSOLUTE 0.61(H) 0.10 - 0.60 K/uL 04/17/2023 9:03 AM CDT [facility] EOSINOPHIL ABSOLUTE 0.00 0.00 - 0.70 K/uL 04/17/2023 9:03 AM CDT [facility] BASOPHILS ABSOLUTE 0.02 0.00 - 0.20 K/uL 04/17/2023 9:03 AM CDT [facility] IMMATURE GRANULOCYTES ABSOLUTE 0.13(H) 0.00 - 0.10 K/uL 04/17/2023 9:03 AM CDT [facility] Blood Collection / Unknown 04/17/2023 4:15 AM CDT 04/17/2023 8:55 AM CDT us Geovanny Vyas NP HEMATOLOGY ORDERABLES Fi nal Result [facility] # [id number] [address] [place] [address] * (ABNORMAL) COMPREHENSIVE METABOLIC PANEL (04/17/2023 4:15 AM CDT) SODIUM 145 136 - 145 mmol/L 04/17/2023 9:19 AM CDT [facility] POTASSIUM 3.9 3.5 - 5.1 mmol/L 04/17/2023 9:19 AM CDT [facility] CHLORIDE 100 98 - 107 mmol/L 04/17/2023 9:19 AM CDT [facility] CO2 34(H) 22 - 29 mmol/L 04/17/2023 9:19 AM [facility] CALCIUM 9.0 8.8 - 10.2 mg/dL 04/17/2023 9:19 AM [facility] BUN 17 8 - 23 mg/dL 04/17/2023 9:19 AM [facility] CREATININE 0.24(L) 0.67 - 1.17 mg/dL 04/17/2023 9:19 AM [facility] GLUCOSE 84 74 - 99 mg/dL 04/17/2023 9:19 AM [facility] TOTAL PROTEIN 5.5(L) 6.4 - 8.3 g/dL 04/17/2023 9:19 AM [facility] ALBUMIN 3.2(L) 3.5 - 5.2 g/dL 04/17/2023 9:19 AM [facility] BILIRUBIN TOTAL 0.4 0.2 - 1.0 mg/dL 04/17/2023 9:19 AM [facility] ALKALINE PHOSPHATASE 82 40 - 129 U/L 04/17/2023 9:19 AM [facility] AST 18 10 - 50 U/L 04/17/2023 9:19 AM [facility] ALT 29 <=50 U/L 04/17/2023 9:19 AM [facility] GFR >60 >=60 mL/min/1. 73 sq meter 04/17/2023 9:19 AM [facility] Comment:eGFR calculated with 2020 CKD-EPI equation. Vegetarian diet, extremely high or low muscle mass, and may affect results. Cystatin C with Glomerular Filtration Rate is a suitable alternative for these patients. ANION GAP 11 9 - 20 mmol/L 04/17/2023 9:19 AM [facility] Blood Collection / Unknown 04/17/2023 4:15 AM CDT 04/17/2023 8:55 AM CDT Geovanny Vyas NP CHEMISTRY ORDERABLES Fin al Result Performing Organization Address City/State/[facility] Co de Phone Number [facility] [id number] [address] [place] [address] documented in this encounter Visit Diagnoses Not on filedocumented in this encounter Additional Health Concerns Infection Onset Date Last Indicated Resolved Time R/O C. 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/19/24 , negative MDRO sputum 09/08/24 ls 07/19/2024 07/19/2024 2:20 PM SWITCH REPAIRER R/O COVID-19 08/08/2024 08/08/2024 08/08/2024 3:12 AM SWITCH REPAIRER R/O COVID-19 09/07/2024 09/07/2024 09/07/2024 1:57 AM SWITCH REPAIRER Respiratory Syncytial Virus (RSV) 09/07/2024 025 09/21/2024 1:16 AM CDT R/O Respiratory 09/25/2024 09/25/2024 09/26/2024 1 :06 AM CDT Respiratory Syncytial Virus (RSV) 09/25/2024 025 10/17/2024 1:16 AM CDT 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
--- OUTSIDE RECORDS SUMMARY | 2025-02-09 15:08 | XMS_ITS | Encounter Summary ---
Author Organization [facility] Address 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 Blood Collection / Unknown 10/24/2024 4:35 AM CDT 10/24/2024 5:27 AM CDT Hamilton Sheffield DO CHEMISTRY ORDERABLES Final R esult [facility] CLIA # [id number] [address] [place] [address] * (ABNORMAL) CBC WITH DIFFERENTIAL (10/24/2024 4:35 AM CDT) [facility] WBC 5.0 4.8 - 10.8 K/uL 10/24/2024 5:37 AM CDT [facility] RBC 4.92 4.60 - 6.20 M/uL 10/24/2024 5:37 AM CDT [facility] HEMOGLOBIN 12.9(L) 14.0 - 18.0 g/dL 10/24/2024 5:37 AM CDT [facility] HEMATOCRIT 41.0 41.0 - 53.0 % 10/24/2024 5:37 AM CDT [facility] MCV 83.3(L) 84.0 - 103.0 fL 10/24/2024 5:37 AM CDT [facility] MCH 26.2(L) 27.0 - 34.0 pg 10/24/2024 5:37 AM CDT [facility] MCHC 31.5 30.0 - 35.0 g/dL 10/24/2024 5:37 AM CDT [facility] PLATELETS 105(L) 140 - 440 K/uL 10/24/2024 5:37 AM CDT [facility] MPV 11.8 8.9 - 12.8 fL 10/24/2024 5:37 AM [facility] RDW 17.2(H) 11.0 - 14.5 % 10/24/2024 5:37 AM [facility] RDW-STDEV 51.5 37.0 - 54.0 fL 10/24/2024 5:37 AM [facility] NEUTROPHILS 58 42 - 75 % 10/24/2024 5:37 AM [facility] LYMPHOCYTES 23(L) 24 - 44 % 10/24/2024 5:37 AM [facility] MONOCYTES 12(H) 2 - 10 % 10/24/2024 5:37 AM [facility] EOSINOPHILS 5 0 - 7 % 10/24/2024 5:37 AM [facility] BASOPHILS 1 0 - 1 % 10/24/2024 5:37 AM [facility] IMMATURE GRANULOCYTES 1 0 - 2 % 10/24/2024 5:37 AM [facility] NEUTROPHIL ABSOLUTE 2.91 2.00 - 8.00 K/uL 10/24/2024 5:37 AM [facility] LYMPHOCYTE ABSOLUTE 1.14(L) 1.20 - 4.00 K/uL 10/24/2024 5:37 AM [facility] MONOCYTE ABSOLUTE 0.62(H) 0.10 - 0.60 K/uL 10/24/2024 5:37 AM [facility] EOSINOPHIL ABSOLUTE 0.25 0.00 - 0.70 K/uL 10/24/2024 5:37 AM [facility] BASOPHILS ABSOLUTE 0.04 0.00 - 0.20 K/uL 10/24/2024 5:37 AM [facility] IMMATURE GRANULOCYTES ABSOLUTE 0.03 0.00 - 0.10 K/uL 10/24/2024 5:37 AM [facility] SMEAR REVIEWED: NN - No Action Needed 10/24/2024 5:37 AM [facility] Blood Collection / Unknown 10/24/2024 4:35 AM CDT 10/24/2024 5:27 AM CDT Hamilton Sheffield DO HEMATOLOGY ORDERABLES Final Result [facility] CLIA # [id number] [facility] [address] [address] [place] [address] * (ABNORMAL) COMPREHENSIVE METABOLIC PANEL (10/24/2024 4:35 AM CDT) SODIUM 137 136 - 145 mmol/L 10/24/2024 6:00 AM T [facility] POTASSIUM 3.1(L) 3.5 - 5.1 mmol/L 10/24/2024 6:00 AM [facility] CHLORIDE 98 98 - 107 mmol/L 10/24/2024 6:00 AM T [facility] CO2 27 22 - 29 mmol/L 10/24/2024 6:00 AM T [facility] CALCIUM 9.3 8.8 - 10.2 mg/dL 10/24/2024 6:00 AM T [facility] BUN 20 8 - 23 mg/dL 10/24/2024 6:00 AM T [facility] CREATININE 0.35(L) 0.67 - 1.17 mg/dL 10/24/2024 6:00 AM T [facility] GLUCOSE 90 74 - 99 mg/dL 10/24/2024 6:00 AM T [facility] TOTAL PROTEIN 5.9(L) 6.4 - 8.3 g/dL 10/24/2024 6:00 AM T [facility] ALBUMIN 3.4(L) 3.5 - 5.2 g/dL 10/24/2024 6:00 AM T [facility] BILIRUBIN TOTAL 0.5 0.2 - 1.0 mg/dL 10/24/2024 6:00 AM T [facility] ALKALINE PHOSPHATASE 88 40 - 129 U/L 10/24/2024 6:00 AM CDT [facility] AST 26 10 - 50 U/L 10/24/2024 6:00 AM CDT [facility] ALT 38 <=50 U/L 10/24/2024 6:00 AM CDT [facility] GFR >60 >=60 mL/min/1. 73 sq meter 10/24/2024 6:00 AM CDT [facility] Comment:eGFR calculated with 2020 CKD-EPI equation. Vegetarian diet, extremely high or low muscle mass, and may affect results. Cystatin C with Glomerular Filtration Rate is a suitable alternative for these patients. ANION GAP 12 9 - 20 mmol/L 10/24/2024 6:00 AM T [facility] Blood Collection / Unknown 10/24/2024 4:35 AM CDT 10/24/2024 5:27 AM CDT Hamilton Sheffield DO CHEMISTRY ORDERABLES Final R esult 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
--- OUTSIDE RECORDS SUMMARY | 2025-02-09 15:08 | XMS_ITS | Encounter Summary ---
Author Organization [facility] Address [address] [place] [address] Care Team Providers Care Pulp Operator Name Role Phone [place] DO Primary Care Provider Encounter Details Date Type Department Care Team (Late st Contact Info) Description 04/13/2023 Lab Requisition [facility] Laboratory Services [address] [place] [address] Ileana Song MD [address] [place] [address] Social History Tobacco Use Types Packs/Day Years Used Date Smoking Tobacco: Former Cigarettes Q uit: 1998 Smokeless Tobacco: Former Snuff, Chew Alcohol Use Standard Drinks/Week Comments Yes 0 (1 standard drink = 0.6 oz pur e alcohol) socially maybe once a month Sex and Gender Information Value Date Recorded Sex Assigned at Not on file 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 Sex 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 Gender Identity Not on file Sexual Orientation Not on file documented as of this encounter Plan of Treatment Not on file documented as of this encounter Procedures Procedure Name Priority Date/Time Associated Diagnosis Comments TSH REFLEXIVE Routine 04/13/2023 4:52 AM CDT CBC WITH DIFFERENTIAL Routine 04/13/2023 4:52 AM CDT COMPREHENSIVE METABOLIC PANEL Routine 04/13/2023 4:52 AM CDT documented in this encounter Results * TSH REFLEXIVE (04/13/2023 4:52 AM CDT) Pathologist [facility] TSH 2.19 0.27 - 4.20 uIU/mL 04/13/2023 6:16 AM CDT [facility] Blood Collection / Unknown 04/13/2023 4:52 AM CDT 04/13/2023 5:52 AM CDT us Ileana Song MD CHEMISTRY ORDERABLES Final Resu lt [facility] # [id number] [facility] [address] * (ABNORMAL) CBC WITH DIFFERENTIAL (04/13/2023 4:52 AM CDT) Pathologist [facility] WBC 11.1(H) 4.8 - 10.8 K/uL 04/13/2023 6:15 AM CDT [facility] RBC 4.35(L) 4.60 - 6.20 M/uL 04/13/2023 6:15 AM CDT [facility] HEMOGLOBIN 12.3(L) 14.0 - 18.0 g/dL 04/13/2023 6:15 AM CDT [facility] HEMATOCRIT 41.8 41.0 - 53.0 % 04/13/2023 6:15 AM CDT [facility] MCV 96.1 84.0 - 103.0 fL 04/13/2023 6:15 AM CDT [facility] MCH 28.3 27.0 - 34.0 pg 04/13/2023 6:15 AM CDT [facility] MCHC 29.4(L) 30.0 - 35.0 g/dL 04/13/2023 6:15 AM CDT [facility] RDW 19.0(H) 11.0 - 14.5 % 04/13/2023 6:15 AM CDT [facility] RDW-STDEV 67.5(H) 37.0 - 54.0 fL 04/13/2023 6:15 AM [facility] PLATELETS 282 140 - 440 K/uL 04/13/2023 6:15 AM [facility] MPV 10.2 8.9 - 12.8 fL 04/13/2023 6:15 AM [facility] NEUTROPHILS 88(H) 42 - 75 % 04/13/2023 6:15 AM [facility] LYMPHOCYTES 5(L) 24 - 44 % 04/13/2023 6:15 AM [facility] MONOCYTES 5 2 - 10 % 04/13/2023 6:15 AM [facility] EOSINOPHILS 0 0 - 7 % 04/13/2023 6:15 AM [facility] BASOPHILS 0 0 - 1 % 04/13/2023 6:15 AM [facility] IMMATURE GRANULOCYTES 2 0 - 2 % 04/13/2023 6:15 AM [facility] NEUTROPHIL ABSOLUTE 9.79(H) 2.00 - 8.00 K/uL 04/13/2023 6:15 AM [facility] LYMPHOCYTE ABSOLUTE 0.52(L) 1.20 - 4.00 K/uL 04/13/2023 6:15 AM [facility] MONOCYTE ABSOLUTE 0.59 0.10 - 0.60 K/uL 04/13/2023 6:15 AM [facility] EOSINOPHIL ABSOLUTE 0.00 0.00 - 0.70 K/uL 04/13/2023 6:15 AM [facility] BASOPHILS ABSOLUTE 0.03 0.00 - 0.20 K/uL 04/13/2023 6:15 AM [facility] IMMATURE GRANULOCYTES ABSOLUTE 0.20(H) 0.00 - 0.10 K/uL 04/13/2023 6:15 AM [facility] Blood Collection / Unknown 04/13/2023 4:52 AM CDT 04/13/2023 5:52 AM CDT us Ileana Song MD HEMATOLOGY ORDERABLES Final Res ult [facility] TAMI # [id number] [address] [facility] [place] [address] * (ABNORMAL) COMPREHENSIVE METABOLIC PANEL (04/13/2023 4:52 AM CDT) Pathologist [facility] SODIUM 140 136 - 145 mmol/L 04/13/2023 6:11 AM CDT [facility] POTASSIUM 3.5 3.5 - 5.1 mmol/L 04/13/2023 6:11 AM CDT [facility] CHLORIDE 100 98 - 107 mmol/L 04/13/2023 6:11 AM CDT [facility] CO2 31(H) 22 - 29 mmol/L 04/13/2023 6:11 AM CDT [facility] CALCIUM 8.4(L) 8.8 - 10.2 mg/dL 04/13/2023 6:11 AM T [facility] BUN 12 8 - 23 mg/dL 04/13/2023 6:11 AM CDT [facility] CREATININE 0.18(L) 0.67 - 1.17 mg/dL 04/13/2023 6:11 AM T [facility] GLUCOSE 168(H) 74 - 99 mg/dL 04/13/2023 6:11 AM CDT [facility] TOTAL PROTEIN 5.4(L) 6.4 - 8.3 g/dL 04/13/2023 6:11 AM T [facility] ALBUMIN 3.0(L) 3.5 - 5.2 g/dL 04/13/2023 6:11 AM CDT [facility] BILIRUBIN TOTAL 0.4 0.2 - 1.0 mg/dL 04/13/2023 6:11 AM CDT [facility] ALKALINE PHOSPHATASE 89 40 - 129 U/L 04/13/2023 6:11 AM CDT [facility] AST 19 10 - 50 U/L 04/13/2023 6:11 AM T [facility] ALT 33 <=50 U/L 04/13/2023 6:11 AM T [facility] GFR >60 >=60 mL/min/1. 73 sq meter 04/13/2023 6:11 AM T [facility] Comment:eGFR calculated with 2020 CKD-EPI equation. Vegetarian diet, extremely high or low muscle mass, and may affect results. Cystatin C with Glomerular Filtration Rate is a suitable alternative for these patients. ANION GAP 9 9 - 20 mmol/L 04/13/2023 6:11 AM [facility] Blood Collection / Unknown 04/13/2023 4:52 AM CDT 04/13/2023 5:52 AM CDT us Ileana Song MD CHEMISTRY ORDERABLES Final Resu lt Performing Organization Address City/State/[facility] Co de Phone Number [facility] CLIA # [id number] [address] [place] [id number] documented in this encounter Visit Diagnoses Not on filedocumented in this encounter Additional Health Concerns Infection Onset Date Last Indicated Resolved Time R/O C. 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 07/19/24 , negative MDRO sputum 09/08/24 ls 07/19/2024 07/19/2024 2:20 PM CLASSIFICATION CONTROL CLERK R/O COVID-19 08/08/2024 08/08/2024 08/08/2024 3:12 AM CLASSIFICATION CONTROL CLERK R/O COVID-19 09/07/2024 09/07/2024 09/07/2024 1:57 AM CLASSIFICATION CONTROL CLERK Respiratory Syncytial Virus (RSV) 09/07/2024 025 09/21/2024 1:16 AM CDT R/O Respiratory 09/25/2024 09/25/2024 09/26/2024 1 :06 AM CDT Respiratory Syncytial Virus (RSV) 09/25/2024 025 10/17/2024 1:16 AM CDT [facility]istant [facility] m (MDRO) Comment:10/03/24: Sputum (Pseudomonas aeruginosa) 10/03/2024 10/03/2024 TRAFFIC COUNTER Comment:10/03/24: Sputum (Pseudomonas aeruginosa) 10/03/2024 10/07/2024 R/O Respiratory 11/28/2024 11/28/2024 11/28/2024 7 :05 AM CDT Respiratory Syncytial Virus (RSV) 11/28/2024 025 12/12/2024 1:16 AM CDT R/O GI Pathogen 12/13/2024 12/13/2024 12/14/2024 1 2:34 AM CDT documented as of this encounter Care Teams Pulp Operator Relationship Specialty Start Date End Date Charles Clancy DO [address] [place] [address] PCP - General Family Practice 11/07/24 documented as of this encounter
--- OUTSIDE RECORDS SUMMARY | 2025-02-09 15:08 | XMS_ITS | Encounter Summary ---
Author Organization [facility] Address [address] [place] [address] Care Team Providers Care Food Service Order Clerk Name Role Phone Clancy, Charles Rock DO Primary Care Provider [phone] Encounter Details Date Type Department Care Team (Late st Contact Info) Description 04/11/2023 Lab Requisition [facility] Laboratory Services [address] [place] [address] [place] [phone] Geovanny Vyas, HILARIA [address] [facility] [address] [place] [address] Social History Tobacco Use Types Packs/Day Years Used Date Smoking Tobacco: Former Cigarettes Q uit: 1998 Smokeless Tobacco: Former Snuff, Chew Alcohol Use Standard Drinks/Week Comments Yes 0 (1 standard drink = 0.6 oz pur e alcohol) socially maybe once a month Sex and Gender Information Value Date Recorded Sex Assigned at Not on file 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 Gender Identity Not on file Sexual Orientation Not on file documented as of this encounter Plan of Treatment Not on file documented as of this encounter Procedures Procedure Name Priority Date/Time Associated Diagnosis Comments COXIELLA BURNETTI ABS Routine 04/11/2023 7:06 PM CDT documented in this encounter Results * COXIELLA BURNETTI ABS (04/11/2023 7:06 PM CDT) COXIELLA BURNETII IGG PHASE I NEGATIVE 04/14/2023 8:49 PM CDT [facility] Comment:REFERENCE RANGE: NEG ATIVE COXIELLA BURNETII IGG PHASE II NEGATIVE 04/14/2023 8:49 PM CDT [facility] Comment:REFERENCE RANGE: NEG ATIVE COXIELLA BURNETII IGM PHASE I NEGATIVE 04/14/2023 8:49 PM CDT [facility] Comment:REFERENCE RANGE: NEG ATIVE COXIELLA BURNETII IGM PHASE II NEGATIVE 04/14/2023 8:49 PM CDT [facility] Comment: REFERENCE RANGE: NEGATIVE Q Fever Antibody testing includes differentiation of antibodies to Phase I and Phase II antigenic variants. Coxiella burnetii, which causes Q Fever, undergoes transitions between Phase I and Phase II states. These phases are serologically distinguishable and useful in the serodiagnosis of acute and chronic disease. In some cases, the ratio of titer of Phase II to Phase I may indicate the stage of the disease. A ratio of greater than 1 may indicate the acute stage; greater than or equal to 1, granulomatous hepatitis; and less than 1, the chronic stage or endocarditis. As with other infectious diseases, IgM antibodies are the first to appear. Usually they are detectable for a few weeks or, at the most, for a few months. IgG antibodies appear somewhat later but can persist for years, even for life. Although single Phase II IgG titers of 1:256 or greater are considered evidence of acute C. burnetii disease, the best criterion for a dependable diagnosis is still the demonstration of a fourfold or higher increase in antibody titer between the acute and convalescent serum samples. Blood Collection / Unknown 04/11/2023 7:06 PM CDT 04/11/2023 8:09 PM CDT Narrative [facility] - 04/14/2023 8:49 PM CDT Performing Organization Information: Site ID: [id number] Name: [facility], Address: [address] [place] [address] Director: Renetta Jain MD,PhD,SCOTT us Geovanny Vyas NP CHEMISTRY ORDERABLES Fin al Result [facility] documented in this encounter Visit Diagnoses Not on filedocumented in this encounter Additional Health Concerns Infection Onset Date Last Indicated Resolved Time R/O C. 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 R/O COVID-19 09/07/2024 09/07/2024 09/07/2024 1:57 AM SCHOOL BUS AIDE Respiratory Syncytial Virus (RSV) 09/07/2024 025 09/21/2024 1:16 AM CDT R/O Respiratory 09/25/2024 09/25/2024 09/26/2024 1 :06 AM CDT Respiratory Syncytial Virus (RSV) 09/25/2024 025 10/17/2024 1:16 AM CDT [facility] ([facility]DR[facility]) Comment:10/03/24: Sputum (Pseudomonas aeruginosa) 10/03/2024 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
--- OUTSIDE RECORDS SUMMARY | 2025-02-09 15:08 | XMS_ITS | Encounter Summary ---
Author Organization [facility] Address 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 Gender Identity Not on file Sexual Orientation Not on file documented as of this encounter Plan of Treatment Not on file documented as of this encounter Procedures Procedure Name Priority Date/Time Associated Diagnosis Comments COMPREHENSIVE METABOLIC PANEL Routine 10/26/2024 3:15 AM CDT documented in this encounter Results * (ABNORMAL) COMPREHENSIVE METABOLIC PANEL (10/26/2024 3:15 AM CDT) SODIUM 140 136 - 145 mmol/L 10/26/2024 6:12 AM [facility] POTASSIUM 3.2(L) 3.5 - 5.1 mmol/L 10/26/2024 6:12 AM [facility] CHLORIDE 101 98 - 107 mmol/L 10/26/2024 6:12 AM [facility] CO2 26 22 - 29 mmol/L 10/26/2024 6:12 AM [facility] CALCIUM 9.1 8.8 - 10.2 mg/dL 10/26/2024 6:12 AM [facility] BUN 19 8 - 23 mg/dL 10/26/2024 6:12 AM [facility] CREATININE 0.35(L) 0.67 - 1.17 mg/dL 10/26/2024 6:12 AM [facility] GLUCOSE 90 74 - 99 mg/dL 10/26/2024 6:12 AM [facility] TOTAL PROTEIN 6.1(L) 6.4 - 8.3 g/dL 10/26/2024 6:12 AM [facility] ALBUMIN 3.4(L) 3.5 - 5.2 g/dL 10/26/2024 6:12 AM [facility] BILIRUBIN TOTAL 0.4 0.2 - 1.0 mg/dL 10/26/2024 6:12 AM [facility] ALKALINE PHOSPHATASE 87 40 - 129 U/L 10/26/2024 6:12 AM [facility] AST 27 10 - 50 U/L 10/26/2024 6:12 AM [facility] ALT 40 <=50 U/L 10/26/2024 6:12 AM [facility] GFR >60 >=60 mL/min/1. 73 sq meter 10/26/2024 6:12 AM [facility] Comment:eGFR calculated with 2020 CKD-EPI equation. Vegetarian diet, extremely high or low muscle mass, and may affect results. Cystatin C with Glomerular Filtration Rate is a suitable alternative for these patients. 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
--- OUTSIDE RECORDS SUMMARY | 2025-02-09 15:08 | XMS_ITS | Encounter Summary ---
Author Organization [employer] [facility] Address [address] [place] [address] Care Team Providers Care Naumkeag Operator Name Role Phone Aristeo Rebollar MD Primary Care Provider [phone] Encounter Details Date Type Department Care Team (Late st Contact Info) Description 05/28/1998 Outpatient Historical [facility] Curt Rosales MD [address] [place], [place] [id number] Migraine without aura, without mention of intractable migraine without mention of status migrainosus (Primary Dx) Social History Tobacco Use Types Packs/Day Years Used Date Smoking Tobacco: Never Assessed Sex and Gender Information Value Date Recorded Sex Assigned at Not on file 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
--- OUTSIDE RECORDS SUMMARY | 2025-02-09 15:08 | XMS_ITS | Encounter Summary ---
Author Organization [facility] Address [address] [place] [address] Care Team Providers Care Flake Cutter Operator Name Role Phone Aston Charles Rock DO Primary Care Provider [phone] Encounter Details Date Type Department Care Team (Late st Contact Info) Description 04/06/2023 Lab Requisition [facility] Laboratory Services [facility] [address] [place] [phone] Wanda Hdez MD [address] [place] [address] Social History Tobacco Use Types Packs/Day Years Used Date Smoking Tobacco: Former Cigarettes Q uit: 1998 Smokeless Tobacco: Former Snuff, Chew Alcohol Use Standard Drinks/Week Comments Yes 0 (1 standard drink = 0.6 oz pur e alcohol) socially maybe once a month Sex and Gender Information Value Date Recorded Sex Assigned at Not on file 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 Gender Identity Not on file Sexual Orientation Not on file documented as of this encounter Plan of Treatment Not on file documented as of this encounter Procedures Procedure Name Priority Date/Time Associated Diagnosis Comments COMPREHENSIVE METABOLIC PANEL Routine 04/06/2023 6:07 PM CDT documented in this encounter Results * (ABNORMAL) COMPREHENSIVE METABOLIC PANEL (04/06/2023 6:07 PM CDT) SODIUM 144 136 - 145 mmol/L 04/06/2023 8:17 PM [facility] POTASSIUM 3.1(L) 3.5 - 5.1 mmol/L 04/06/2023 8:17 PM [facility] CHLORIDE 107 98 - 107 mmol/L 04/06/2023 8:17 PM [facility] CO2 27 22 - 29 mmol/L 04/06/2023 8:17 PM [facility] CALCIUM 7.5(L) 8.8 - 10.2 mg/dL 04/06/2023 8:17 PM [facility] BUN 22 8 - 23 mg/dL 04/06/2023 8:17 PM [facility] CREATININE 0.27(L) 0.67 - 1.17 mg/dL 04/06/2023 8:17 PM [facility] GLUCOSE 229(H) 74 - 99 mg/dL 04/06/2023 8:17 PM [facility] TOTAL PROTEIN 4.9(L) 6.4 - 8.3 g/dL 04/06/2023 8:17 PM [facility] ALBUMIN 2.5(L) 3.5 - 5.2 g/dL 04/06/2023 8:17 PM [facility] BILIRUBIN TOTAL 0.4 0.2 - 1.0 mg/dL 04/06/2023 8:17 PM [facility] ALKALINE PHOSPHATASE 75 40 - 129 U/L 04/06/2023 8:17 PM [facility] AST 34 10 - 50 U/L 04/06/2023 8:17 PM [facility] ALT 53(H) <=50 U/L 04/06/2023 8:17 PM [facility] GFR >60 >=60 mL/min/1. 73 sq meter 04/06/2023 8:17 PM [facility] Comment:eGFR calculated with 2020 CKD-EPI equation. Vegetarian diet, extremely high or low muscle mass, and may affect results. Cystatin C with Glomerular Filtration Rate is a suitable alternative for these patients. ANION GAP 10 9 - 20 mmol/L 04/06/2023 8:17 PM CDT [facility] Blood Collection / Unknown 04/06/2023 6:07 PM CDT 04/06/2023 7:51 PM CDT Wanda Hdez MD CHEMISTRY ORDERABLES Final Resu lt [facility] CLIA # [id number] [address] [address] documented in this encounter Visit Diagnoses Not on filedocumented in this encounter Additional Health Concerns Infection Onset Date Last Indicated Resolved Time R/O C. 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 sputum 07/19/24 , negative MDRO sputum 09/08/24 ls 07/19/2024 07/19/2024 2:20 PM CAMPAIGN DEVELOPER R/O COVID-19 08/08/2024 08/08/2024 08/08/2024 3:12 AM CAMPAIGN DEVELOPER R/O COVID-19 09/07/2024 09/07/2024 09/07/2024 1:57 AM CAMPAIGN DEVELOPER Respiratory Syncytial Virus (RSV) 09/07/2024 025 09/21/2024 1:16 AM CDT R/O Respiratory 09/25/2024 09/25/2024 09/26/2024 1 :06 AM CDT Respiratory Syncytial Virus (RSV) 09/25/2024 025 10/17/2024 1:16 AM CDT [facility] (M[facility]) Comment:10/03/24: Sputum (Pseudomonas aeruginosa) 10/03/2024 10/03/2024 PODIATRIC PHYSICIAN Comment:10/03/24: Sputum (Pseudomonas aeruginosa) 10/03/2024 10/07/2024 R/O Respiratory 11/28/2024 11/28/2024 11/28/2024 7 :05 AM CDT Respiratory Syncytial Virus (RSV) 11/28/2024 025 12/12/2024 1:16 AM CDT R/O GI Pathogen 12/13/2024 12/13/2024 12/14/2024 1 2:34 AM CDT documented as of this encounter Care Teams Flake Cutter Operator Relationship Specialty Start Date End Date Charles Clancy DO [address] [place] [address] PCP - General Family Practice 11/07/24 documented as of this encounter
--- OUTSIDE RECORDS SUMMARY | 2025-02-09 15:08 | XMS_ITS | Encounter Summary ---
Author Organization [facility] Address [address] [place] [address] Care Team Providers Care Home Visitor Name Role Phone [place] DO Primary Care Provider [phone] Encounter Details Date Type Department Care Team (Late st Contact Info) Description 04/07/2023 Lab Requisition 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 Gender Identity Not on file Sexual Orientation Not on file documented as of this encounter Plan of Treatment Not on file documented as of this encounter Procedures Procedure Name Priority Date/Time Associated Diagnosis Comments BASIC METABOLIC PANEL Routine 04/07/2023 4:50 AM CDT documented in this encounter Results * (ABNORMAL) BASIC METABOLIC PANEL (04/07/2023 4:50 AM CDT) SODIUM 143 136 - 145 mmol/L 04/07/2023 7:23 AM CDT [facility] POTASSIUM 3.3(L) 3.5 - 5.1 mmol/L 04/07/2023 7:23 AM T [facility] CHLORIDE 108(H) 98 - 107 mmol/L 04/07/2023 7:23 AM T [facility] CO2 26 22 - 29 mmol/L 04/07/2023 7:23 AM T [facility] CALCIUM 8.0(L) 8.8 - 10.2 mg/dL 04/07/2023 7:23 AM T [facility] BUN 22 8 - 23 mg/dL 04/07/2023 7:23 AM T [facility] CREATININE 0.24(L) 0.67 - 1.17 mg/dL 04/07/2023 7:23 AM T [facility] GLUCOSE 220(H) 74 - 99 mg/dL 04/07/2023 7:23 AM T [facility] GFR >60 >=60 mL/min/1. 73 sq meter 04/07/2023 7:23 AM T [facility] Comment:eGFR calculated with 2020 CKD-EPI equation. Vegetarian diet, extremely high or low muscle mass, and may affect results. Cystatin C with Glomerular Filtration Rate is a suitable alternative for these patients. ANION GAP 9 9 - 20 mmol/L 04/07/2023 7:23 AM T [facility] Blood Collection / Unknown 04/07/2023 4:50 AM CDT 04/07/2023 7:04 AM CDT us External Provider [facility] CHEMISTRY ORDERABLES Final Result [facility] CLIA # [id number] [address] [place] [id number] documented in this encounter Visit Diagnoses Not on filedocumented in this encounter Additional Health Concerns Infection Onset Date Last Indicated Resolved Time R/O C. diff 04/19/2023 04/19/2023 04/19/2023 3:44 AM CDT R/O COVID-19 07/09/2024 07/09/2024 07/09/2024 5:41 PM NUCLEAR FUEL PROCESSING TECHNICIAN R/O GI Pathogen 07/09/2024 07/09/2024 07/10/2024 8 :40 AM NUCLEAR FUEL PROCESSING TECHNICIAN C Diff 07/09/2024 07/09/2024 09/13/2024 1:16 AM NUCLEAR FUEL PROCESSING TECHNICIAN [facility] ([facility]) Comment:[facility] sputum 07/19/24 , negative MDRO sputum 09/08/24 ls 07/19/2024 07/19/2024 2:20 PM NUCLEAR FUEL PROCESSING TECHNICIAN R/O COVID-19 08/08/2024 08/08/2024 08/08/2024 3:12 AM NUCLEAR FUEL PROCESSING TECHNICIAN R/O COVID-19 09/07/2024 09/07/2024 09/07/2024 1:57 AM NUCLEAR FUEL PROCESSING TECHNICIAN Respiratory Syncytial Virus (RSV) 09/07/2024 025 09/21/2024 1:16 AM CDT R/O Respiratory 09/25/2024 09/25/2024 09/26/2024 1 :06 AM CDT Respiratory Syncytial Virus (RSV) 09/25/2024 025 10/17/2024 1:16 AM CDT [facility] ([facility]) Comment:10/03/24: Sputum (Pseudomonas aeruginosa) 10/03/2024 10/03/2024 SPEECH PATHOLOGIST ASSISTANT Comment:10/03/24: Sputum (Pseudomonas aeruginosa) 10/03/2024 10/07/2024 R/O Respiratory 11/28/2024 11/28/2024 11/28/2024 7 :05 AM CDT Respiratory Syncytial Virus (RSV) 11/28/2024 025 12/12/2024 1:16 AM CDT R/O GI Pathogen 12/13/2024 12/13/2024 12/14/2024 1 2:34 AM CDT documented as of this encounter Care Teams Home Visitor Relationship Specialty Start Date End Date Charles Clancy DO [address] [place] [id number] PCP - General Family Practice 11/07/24 documented as of this encounter
--- OUTSIDE RECORDS SUMMARY | 2025-02-09 15:08 | XMS_ITS | Encounter Summary ---
Author Organization [employer] Address [address] [place] [address] Care Team Providers Care Pad Tufter Name Role Phone Aristeo Rebollar MD Primary Care Provider [phone] Encounter Details Date Type Department Care Team (Late st Contact Info) Description 09/28/1998 Outpatient Historical [facility] Curt Rosales MD [address], [place] [id number] Migraine without aura, without mention of intractable migraine without mention of status migrainosus (Primary Dx); Rheumatism, unspecified and fibrositis Social History Tobacco Use Types Packs/Day Years Used Date Smoking Tobacco: Never Assessed Sex and Gender Information Value Date Recorded Sex Assigned at Not on file 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
--- OUTSIDE RECORDS SUMMARY | 2025-02-09 15:08 | XMS_ITS | Clinical Summary ---
Author Organization [facility] Address [address] Attn: Epic Prelude ADT REGLA AGARWAL [address] Care Team Providers Care Drying Oven Tender Name Role Phone Charles Clancy DO Primary Care Provider [phone] Allergies Active Allergy Reactions Criticality Noted Date Comments Succinylcholine Other (See Comments) 03/11/2021 Sister nearly paralyzed from it so they avoid as a precaution Medications Blood-Glucose Meter KitIndications:Ty pe 2 diabetes mellitus with diabetic polyneuropathy, without long-term current use of insulin ([facility]) Use to check blood sugar 1-2 times daily 1 Each 2 Active blood sugar diagnostic (Blood Glucose Test) StripIndications: Type 2 diabetes mellitus with diabetic polyneuropathy, without long-term current use of insulin ([facility]) Use to check blood sugar 1-2 times daily 200 Strip 3 2 Active lancetsIndication s:Type 2 diabetes mellitus with diabetic polyneuropathy, without long-term current use of insulin ([facility]) Use to check blood sugar 1-2 times daily 200 Each 3 2 Active ascorbic acid, vitamin C, (VITAMIN C) 250 mg tablet Take 250 mg by mouth daily. Active ferrous sulfate 325 mg (65 mg iron) tablet Take 325 mg by mouth daily. Active artificial lubricant (GENTEAL PM) 94-3 % ointment Administer 0.25 Inches in both eyes every 12 hours. 5 Active loratadine (CLARITIN) 10 mg tablet Take 10 mg by mouth daily. Active peg 400-propylene glycol (SYSTANE) 0.4-0.3 % solution 1 Drop every 2 hours. Active allopurinoL (ZYLOPRIM) 100 mg tabletIndications :Chronic gout of foot, unspecified cause, unspecified laterality Take 1 Tablet (100 mg) by mouth daily. 100 Tablet 1 5 Active alogliptin (NESINA) 25 mg TabletIndications :Type 2 diabetes mellitus without complication, with long-term current use of insulin ([facility]) Take 1 Tablet (25 mg) by mouth daily. 100 Tablet 3 5 Active silodosin (RAPAFLO) 4 mg Capsule Take 1 Capsule (4 mg) by mouth daily with breakfast. 100 Capsule 1 5 Active pregabalin (LYRICA) 50 mg Capsule Take 1 Capsule (50 mg) by mouth every 8 hours. 90 Capsule 5 5 Active atorvastatin (LIPITOR) 10 mg tablet Take 1 Tablet (10 mg) by mouth daily at bedtime. 100 Tablet 1 5 Active busPIRone (BUSPAR) 15 mg Tablet Take 1 Tablet (15 mg) by mouth 3 times daily. 300 Tablet 1 5 Active famotidine (PEPCID) 20 mg tablet Take 1 Tablet (20 mg) by mouth daily. 100 Tablet 1 5 Active finasteride (PROSCAR) 5 mg tablet Take 1 Tablet (5 mg) by mouth daily. 100 Tablet 5 Active metoprolol tartrate (LOPRESSOR) 25 mg tablet Take 0.5 Tablets (12.5 mg) by mouth 2 times daily. 100 Tablet 1 5 Active amiodarone (CORDARONE) 200 mg tablet Take 1 Tablet (200 mg) by mouth daily. 100 Tablet 1 5 Active metFORMIN (GLUCOPHAGE XR) 500 mg Extended Release 24 hour tablet Take 1 Tablet (500 mg) by mouth daily with breakfast. 100 Tablet 3 5 Active apixaban (ELIQUIS) 5 mg tablet Take 1 Tablet (5 mg) by mouth 2 times daily. 200 Tablet 1 5 Active albuterol (PROVENTIL,VENTOL IN) 2.5 mg /3 mL (0.083 %) Solution for Nebulization Take 3 mL (2.5 mg) by inhalation every 8 hours as needed for Shortness of Breath. 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 04/18/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 03/20/2023 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 Protein-calorie malnutrition, severe 03/03/2023 Cervical lymphadenopathy 03/01/2023 Overview (03/01/2023): Needs Follow up Acute focal neurological deficit on right upper extremity 02/28/2023 Diabetic peripheral neuropathy 10/12/2020 Type 2 diabetes mellitus wit h diabetic polyneuropathy, without long-term current use of insulin 10/12/2020 BPH (benign prostatic hyperplasia) 08/03/2019 Resolved Problems Problem Noted Date Diagnosed Date Resolved Date Palliative care by specialist 10/04/2024 11/08/2024 Goals of care, counseling/discussion 10/04/2024 11/08/2024 Severe sepsis without septic shock 10/02/2024 11/07/2024 Tracheostomy obstruction 09/26/202408/2024 At high risk for inadequate nutritional intake 09/09/2024 11/08/2024 Malfunction of percutaneous endoscopic gastrostomy (PEG) tube 09/09/2024 11/08/2024 RSV infection 09/07/2024 11/07/2024 Respiratory distress 09/07/2024 025 C. 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 11/07/2024 Acute colitis 07/12/2024 11/07/2024 Toxic megacolon 07/12/2024 11/07/2024 Pneumonia of left lower lobe due to infectious organism 07/09/2024 11/08/2024 Toxic colitis 07/09/2024 11/07/2024 Acute on chronic hypoxic respiratory failure 11/08/2024 Pseudoobstruction of colon 04/24/2023 1 Ileus 04/18/2023 05/04/2023 VAP (ventilator-associated pneumonia) 04/18/2023 05/04/2023 Acute blood loss anemia 03/20/2023 0508/2024 Acute GI bleeding 03/20/2023 11/07/2024 Failure to wean from mechanical ventilation 03/16/2023 11/08/2024 Pneumonia due to infectious organism 03/13/2023 11/07/2024 Atelectasis pulmonary 03/13/20232024 On mechanically assisted ventilation 03/13/2023 11/08/2024 Encephalitis 03/06/2023 11/07/2024 Hypernatremia 03/06/2023 11/07/2024 Urinary tract infection due to Proteus 03/03/2023 11/07/2024 Severe sepsis with septic shock 03/01/2023 11/07/2024 Acute respiratory failure with hypoxia 03/01/2023 11/08/2024 Acute encephalopathy 03/01/2023 025 Acute cystitis with hematuria 03/01/2023 11/07/2024 Atrial fibrillation with rap id ventricular response 03/01/2023 11/08/2024 Right arm weakness 03/01/2023 Altered mental status 03/01/20232024 MANUELITO (acute kidney injury) 02/28/2023 Hypokalemia 02/28/2023 11/07/2024 Transaminitis 02/28/2023 11/08/2024 Fall at home, initial encounter 02/28/2023 11/08/2024 Leukocytosis (leucocytosis) 02/28/2023 11/08/2024 Traumatic rhabdomyolysis 02/28/202308/2024 Elevated troponin 02/28/2023 11/08/2024 Neck mass - Right level 2 03/07/2021 Morbid obesity with body mas s index of 40.0-49.9 10/13/2020 11/08/2024 HTN (hypertension), benign 10/12/2020 0 11/08/2024 Encounters Date Type Department Care Team Description 01/23/2025 External Device Data STL ABSTRACTION Provider, Abstract 01/22/2025 External Device Data ST[facility] ABSTRACTION Provider, Abstract 01/06/2025 External Device Data Initial Department [address] GUZMÁN: [place] [address] Vijay Syed Md 12/26/2024 Telephone [facility] [place] [address] [place] [address] Charles Clancy DO Provider Call 12/25/2024 1:40 AM CDT - 12/25/2024 11:59 PM CDT Hospital Encounter [facility] [address] [place] [phone] Allan Vance MD Ambulance, [facility] Discharge Disposition: Intermediate Care Facility 12/24/2024 1:49 PM CDT - 12/25/2024 2:31 PM CDT Emergency [facility] [address] [place] [phone] Bay Ridley DO Olivera, Thomas, MD Failure to thrive in adult (Primary Dx); Unsatisfactory living conditions; Urinary tract infection without hematuria, site unspecified Discharge Disposition: Home or Self Care 12/24/2024 5:10 AM CDT - 12/24/2024 11:59 PM CDT Hospital Encounter [facility] [address] [place] [phone] Ambulance, [facility] Discharge Disposition: [facility] 12/23/2024 External Device Data Initial Department [address] GUZMÁN: [place] [address] Vijay Syed Md 12/18/2024 [facility]phone [facility] [address] [place] [address] Charles Clancy DO Cough 12/18/2024 Telephone [facility] [place] [address] [place] [address] Aristeo Rebollar MD Provider Call 12/16/2024 Telephone [facility] [place] [address] [place] [address] Aristeo Rebollar MD Provider Call 12/16/2024 [facility] [address] [place] [address] Charles Clancy, Situational mixed anxiety and depressive disorder 12/14/2024 12:15 AM CDT - 12/14/2024 11:59 PM CDT Hospital Encounter [facility] [address] [place] [address] Nguyen Crum MD Ambulance, [facility] Discharge Disposition: Home or Self Care 12/13/2024 8:08 PM CDT - 12/14/2024 2:35 AM CDT Emergency [facility] [address] [place] [address] Nguyen Crum MD Loose stools (Primary Dx) Discharge Disposition: Home or Self Care 12/13/2024 - 12/13/2024 11:59 PM CDT Hospital Encounter [facility] [address] [place] [address] Ambulance, [facility] Discharge Disposition: [facility] 12/13/2024 Travel 12/12/2024 10:25 AM CDT - 12/12/2024 11:59 PM CDT Hospital Encounter [facility] [address] [place] [address] Ambulance, [facility] Discharge Disposition: [facility] 12/12/2024 8:20 AM CDT - 12/12/2024 11:59 PM CDT Hospital Encounter [facility] [address] [place] [address] Salvador Torres DO Ambulance, [facility] Discharge Disposition: Home or Self Care 12/12/2024 2:52 AM CDT - 12/12/2024 10:35 AM CDT Emergency [facility] [address] [place] [address] Salvador Torres DO Tracheostomy care ([facility]) (Primary Dx) Discharge Disposition: Home or Self Care 12/12/2024 Telephone [address] [place] [address] Charles Clancy, DO Patient Communication 12/11/[address] [address] Charles Clancy, DO Durable Medical Equipment (Speaking valve ); Patient Communication; Provider Call 12/09/2024 Telephone [address] [place] [phone] Charles Clancy, Provider Call 12/05/[address] [address] Charles Clancy, Provider Call 11/29/2024 3:45 PM CDT Video Visit [address] [phone] Jameson Nice, COMMERCIAL FINANCE MANAGER Hospital discharge follow-up (Primary Dx); RSV (acute bronchiolitis due to respiratory syncytial virus); Type 2 diabetes mellitus with diabetic polyneuropathy, without long-term current use of insulin ([facility]); Tracheostomy status (CMS/HCC) 11/28/2024 8:15 AM CDT - 11/28/2024 11:59 PM CDT Hospital Encounter [facility] [address] [place] [address] Ambulance, [facility] Discharge Disposition: [facility] 11/28/2024 4:11 AM CDT - 11/28/2024 12:14 PM CDT Emergency [facility] [address] [place] [address] Jorge Little MD Increased tracheal secretions (Primary Dx); Infection due to respiratory syncytial virus (RSV), unspecified infection type Discharge Disposition: Home or Self Care 11/28/2024 12:15 AM CDT - 11/28/2024 11:59 PM CDT Hospital Encounter [facility] [address] [place] [address] Jorge Little MD Ambulance, [facility] Discharge Disposition: Home or Self Care 11/28/2024 Travel 11/27/2024 Telephone [address] [place] [place] [address] Charles Clancy, DO Provider Call 11/27/2024 Telephone [address] [place] [address] Charles Clancy, DO Provider Call 11/21/2024 - 11/21/2024 11:59 PM CDT Hospital Encounter [facility] [address] [place] [address] Ambulance, [facility] Discharge Disposition: Home or Self Care 11/18/2024 Telephone [address] [place] [address] Charles Clancy, DO Question 11/16/2024 4:35 AM CDT - 11/16/2024 11:59 PM CDT Hospital Encounter [facility] [address] [place] [address] Ambulance, [facility] Discharge Disposition: Home or Self Care 11/14/2024 Abstract [facility] [address] [place] [address] Charles Clancy, DO 11/14/2024 Refill [facility] [address] [place] [phone] Charles Clancy, DO 11/14/2024 Orders Only [facility] [place] [address] [place] [phone] Charles Clancy, DO 11/13/2024 Telephone [facility] [place] [address] [place] [phone] Genevieve David Denial on Alogliptin 11/13/2024 Refill [facility] [address] [place] [address] Aristeo Rebollar MD Diabetic peripheral neuropathy ([facility]) 11/12/2024 External Device Data STL ABSTRACTION Provider, Abstract 11/12/2024 Abstract [facility] [address] [place] [address] Aristeo Rebollar MD 11/11/2024 3:30 AM CDT - 11/11/2024 11:59 PM CDT Hospital Encounter [facility] [address] [place] [phone] [facility] Disposition: Home or Self Care 11/11/2024 12:30 AM CDT - 11/11/2024 11:59 PM CDT Hospital Encounter [facility] [address] [place] [phone] [facility] Discharge Disposition: Home or Self Care from Last 3 Months Immunizations Immunization Administration Dates Next Due (PREVNAR 20)(6 WKS UP) PNEUM OCOCCAL CONJUGATE VACCINE 20-VALENT (PCV20), POLYSACCHARIDE [id number] CONJUGATE, ADJUVANT 0.5 ML (PF) IM 11/07/2024(Deferred: Patient Refused) Family History Medical History Relation Name Comments Asthma Father Bleeding Problem Father Diabetes Father Hearing Loss Father Heart Disease Father Hypertension Father Respiratory Disease Father Thyroid Disease Father Osteoporosis Mother Thyroid Disease Mother Cancer Other Uncle-Lung canc er Anesthesia Problems Sister Depression Sister Breast Cancer Neg Hx Colon Cancer Neg Hx High Cholesterol Neg Hx Kidney Disease Neg Hx Liver Disease Neg Hx Stroke Neg Hx Relation Name Status Comments Father Mother Other Sister Social History Tobacco Use Types Packs/Day [...] on file Legal Sex Male 3:17 AM 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 Gender Identity Not on file Sexual Orientation Not on file Last Filed Vital Signs Vital Sign Reading Time Taken Comments Blood Pressure 128/62 12/25/2024 9:00 AM CDT Pulse 101 12/25/2024 9:00 AM CDT Temperature 36.5 C (97.7 F) 12/24/2024 2:00 PM CDT Respiratory Rate 15 12/25/2024 6:00 AM CDT Oxygen Saturation 100% 12/25/2024 9:00 AM CDT Inhaled Oxygen Concentration - - Weight 87 kg (191 lb 12.8 oz) 12/24/2024 2:00 PM CDT Height 177.8 cm (5' 10 ) 11/28/2024 4:24 AM CDT Body Mass Index 27.52 11/28/2024 4:24 AM CDT Plan of Treatment Health Maintenance Due Date Last Done Comments DIABETES ANNUAL RETINAL EXAM 1975 DTAP/TDAP/TD VACCINES (1 - Tdap) 1976 PNEUMOCOCCAL VACCINE 50+ YEA RS (1 of 2 - PCV) 1976 ZOSTER VACCINE (1 of 2) 2007 RSV VACCINE (60+ or ) (1 - Risk 60-74 years 1-dose series) 2017 DIABETES ANNUAL FOOT EXAM 12/01/2023 11/30/2022 DIABETES MICROALBUMIN ANNUAL SCREEN 12/01/2023 11/30/2022, 01/14/2021 LDL CHOLESTEROL ANNUAL 02/29/2024 3, 11/28/2022, 11/10/2021 COVID-19 Vaccine (2023-08 5 season) 2024 06/25/2021, 10/15/2020, 09/24/2020 MARA uACR (Auto Order) 07/10/2024 03/03/2023 , 11/30/2022, 01/14/2021 Medicare Advantage ([place]) Preventative Visit/Annual Wellness Visit 07/10/2024 11/30/2022 INFLUENZA VACCINE (#1) 2025 , 05/31/2022, 05/18/2021 DIABETES HBA1C Q 6 MONTHS 04/10/20252024, 09/28/2024, 09/06/2023, Additional history exists DIABETES: A1C (Auto Order) 10/09/202510/09, 09/28/2024, 09/06/2023, Additional history exists Abdominal Aortic Aneurysm (A AA) Screening Completed 08/30/2023 COLORECTAL SCREENING Discontinued 11/13/2023 Colorectal Cancer Screening Discontinued FIT/FOBT Q 1 year Discontinued 07/09/2024 KHE eGFR (Auto Order) Completed 12/24/2024 , 12/13/2024, 12/12/2024, Additional history exists FIT-DNA Q 3 years Discontinued Flex Sig/CT Colonography Q 5 years Discontinued Medical Devices Implanted Type Area Leaf Sorter Device Identifier Shelf Expiration Date Model / Serial / Lot 6f Powerline Catheter-05/01 Implanted:Qty: 1 on 05/01/2023 by Kailyn Figueroa MD Catheter Right: Chest Wall 02/06/2027 [id number] / / [id number] Tube Feeding Chris Gastro 18fr 99- - [id number] Implanted:Qty: 1 on 10/02/2024 by Darian Albrecht MD at [facility] Feeding Device N/A: Stomach [employer] f[employer] HALYARD [id number] 06/19/202799- / / [id number] Procedures Procedure Name Priority Date/Time Associated Diagnosis Comments EXTRA TUBE (URINE CALDERON) Stat 12/24/2024 5:55 PM CDT URINALYSIS W/REFLEX MICROSCOPIC Stat 12/24/2024 5:55 PM CDT PT EVAL AND TREAT Stat 12/24/2024 4:1 7 PM CDT OT EVAL AND TREAT Stat 12/24/2024 4:1 7 PM CDT XR CHEST PA OR AP 1 VW Stat 2:34 PM CDT COMPREHENSIVE METABOLIC PANEL Stat 12/24/2024 2:12 PM CDT CBC WITH DIFFERENTIAL Stat 12/24/2024 2:12 PM CDT MAGNESIUM LEVEL Stat 12/13/2024 9:13 PM CDT COMPREHENSIVE METABOLIC PANEL Stat 12/13/2024 9:13 PM CDT CBC WITH DIFFERENTIAL Stat 12/13/2024 9:13 PM CDT GI PATHOGEN PCR PANEL Stat 12/13/2024 8:[address] CHEST WO CONTRAST Stat 12/12/2024 4:24 AM CDT COMPREHENSIVE METABOLIC PANEL Stat 12/12/2024 4:03 AM CDT CBC WITH DIFFERENTIAL Stat 12/12/2024 4:03 AM CDT XR CHEST PA OR AP 1 VW Stat 3:46 AM CDT EKG 12-LEAD Stat 12/12/2024 3:17 AM CDT BASIC METABOLIC PANEL Stat 11/28/2024 6:00 AM CDT CBC WITH DIFFERENTIAL Stat 11/28/2024 6:00 AM CDT RESPIRATORY PATHOGEN PCR PANEL Stat 11/28/2024 6:00 AM CDT XR CHEST PA OR AP 1 VW Stat 5:44 AM CDT HEMOGLOBIN A1C Routine 10/09/2024 4:00 AM CDT POC OCCULT BLOOD 1 CARD Stat 07/09/2024 6:51 PM 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 LIPID PANEL Routine 02/28/2023 11:07 PM CDT MICROALBUMIN/CREATININ E RATIO, RANDOM UR Routine 11/30/2022 12:49 PM CDT Type 2 diabetes mellitus with diabetic polyneuropathy, without long-term current use of insulin ([facility]) HTN (hypertension), benign Encounter for routine adult health examination with abnormal findings from Last 3 Months or Most Recently Relevant to Health Maintenance Results * EXTRA TUBE (URINE CALDERON) (12/24/2024 5:55 PM CDT) Urine URINE SPECIMEN OBTAINED BY CLEAN CATCH PROCEDURE / Unknown Collection / Unknown 12/24/2024 5:55 PM CDT 12/24/2024 5:59 PM CDT us Bay Keyana DO URINE ORDERABLES Final Result Performing Organization Address City/State/[facility] Co de Phone Number [facility] CLIA # [id number] [address] [place] [id number] * (ABNORMAL) URINALYSIS WITH REFLEX MICROSCOPIC (12/24/2024 5:55 PM CDT) COLOR UA Yellow Pale to Dark Yellow 12/24/2024 6:17 PM CDT [facility] CLARITY UA Turbid(A) Clear 12/24/2024 6:17 PM CDT [facility] SPECIFIC GRAVITY UA 1.008 1.003 - 1.035 12/24/2024 6:17 PM CDT [facility] PH UA 6.5 5.0 - 8.0 12/24/2024 6:17 PM CDT [facility] LEUKOCYTE ESTERASE UA 3+(A) Negative 12/24/2024 6:17 PM CDT [facility] NITRITE UA Negative Negative 12/24/2024 6:17 PM CDT [facility] PROTEIN UA 1+(A) Negative 12/24/2024 6:17 PM CDT [facility] GLUCOSE UA Negative Negative 12/24/2024 6:17 PM CDT [facility] KETONES UA Negative Negative 12/24/2024 6:17 PM CDT [facility] UROBILINOGEN UA <2.0 <2.0 mg/dL 6:17 PM CDT [facility] BILIRUBIN UA Negative Negative 12/24/2024 6:17 PM CDT [facility] BLOOD UA 2+(A) Negative 12/24/2024 6:17 PM CDT [facility] WBC UA >100(A) 0 - 2 /hpf 12/24/2024 6:17 PM CDT [facility] RBC UA >100(A) 0 - 2 /hpf 12/24/2024 6:17 PM CDT [facility] BACTERIA UA 3+(A) Negative /hpf 12/24/2024 6:17 PM CDT [facility] EPITHELIAL CELLS, URINE 0-5 0 - 5 /hpf 12/24/2024 6:17 PM CDT [facility] Urine URINE SPECIMEN OBTAINED BY CLEAN CATCH PROCEDURE / Unknown Collection / Unknown 12/24/2024 5:55 PM CDT 12/24/2024 5:59 PM CDT us Bay Keyana DO URINE ORDERABLES Final Result [facility] CLIA # [id number] [address] [address] [place] [address] * XR CHEST PA OR AP 1 VW (12/24/2024 2:34 PM CDT) Only the most recent of3 resultswithin the time period is included. Anatomical Region Laterality Modality Chest Computed Radiogr aphy 12/24/2024 2:34 PM CDT Impressions 12/24/2024 3:44 PM CDT IMPRESSION: Small amount of atelectasis and/or infiltrate in the lower lungs bilaterally. Tracheostomy tube with tip in the mid thoracic trachea. Remainder unremarkable. Narrative 12/24/2024 3:44 PM CDT Exam: Radiographs: XR CHEST PA OR AP 1 VW Indication: See Reason for Exam Comparison: Chest x-ray dated 12/12/2024 Procedure Note Faraz Saenz MD - 12/24/2024 Exam: Radiographs: XR CHEST PA OR AP 1 VW Indication: See Reason for Exam Comparison: Chest x-ray dated 12/12/2024 IMPRESSION: Small amount of atelectasis and/or infiltrate in the lower lungs bilaterally. Tracheostomy tube with tip in the mid thoracic trachea. Remainder unremarkable. us Bay Keyana DO DIAGNOSTIC IMAGING ORDERABLES F inal Result * (ABNORMAL) CBC WITH DIFFERENTIAL (12/24/2024 2:12 PM CDT) Only the most recent of4 resultswithin the time period is included. WBC 5.2 4.8 - 10.8 K/uL 12/24/2024 2:24 PM CDT [facility] RBC 4.94 4.60 - 6.20 M/uL 12/24/2024 2:24 PM CDT [facility] HEMOGLOBIN 12.3(L) 14.0 - 18.0 g/dL 12/24/2024 2:24 PM CDT [facility] HEMATOCRIT 40.6(L) 41.0 - 53.0 % 12/24/2024 2:24 PM CDT [facility] MCV 82.2(L) 84.0 - 103.0 fL 12/24/2024 2:24 PM CDT [facility] MCH 24.9(L) 27.0 - 34.0 pg 12/24/2024 2:24 PM CDT [facility] MCHC 30.3 30.0 - 35.0 g/dL 12/24/2024 2:24 PM [facility] PLATELETS 155 140 - 440 K/uL 12/24/2024 2:24 PM [facility] MPV 10.9 8.9 - 12.8 fL 12/24/2024 2:24 PM [facility] RDW 16.5(H) 11.0 - 14.5 % 12/24/2024 2:24 PM [facility] RDW-STDEV 49.5 37.0 - 54.0 fL 12/24/2024 2:24 PM [facility] NEUTROPHILS 58 42 - 75 % 12/24/2024 2:24 PM [facility] LYMPHOCYTES 22(L) 24 - 44 % 12/24/2024 2:24 PM [facility] MONOCYTES 12(H) 2 - 10 % 12/24/2024 2:24 PM [facility] EOSINOPHILS 6 0 - 7 % 12/24/2024 2:24 PM [facility] BASOPHILS 1 0 - 1 % 12/24/2024 2:24 PM [facility] IMMATURE GRANULOCYTES 0 0 - 2 % 12/24/2024 2:24 PM [facility] NEUTROPHIL ABSOLUTE 3.02 2.00 - 8.00 K/uL 12/24/2024 2:24 PM [facility] LYMPHOCYTE ABSOLUTE 1.16(L) 1.20 - 4.00 K/uL 12/24/2024 2:24 PM [facility] MONOCYTE ABSOLUTE 0.63(H) 0.10 - 0.60 K/uL 12/24/2024 2:24 PM [facility] EOSINOPHIL ABSOLUTE 0.30 0.00 - 0.70 K/uL 12/24/2024 2:24 PM [facility] BASOPHILS ABSOLUTE 0.05 0.00 - 0.20 K/uL 12/24/2024 2:24 PM [facility] IMMATURE GRANULOCYTES ABSOLUTE 0.02 0.00 - 0.10 K/uL 12/24/2024 2:24 PM CDT [facility] SMEAR REVIEWED: NA - Not Applicable 12/24/2024 2:24 PM CDT [facility] Blood Venipuncture / Unknown 12/24/2024 2:12 PM CDT 12/24/2024 2:16 PM CDT us [place] DO HEMATOLOGY ORDERABLES Final Res ult [facility] CLIA # [id number] [address] [place] [address] * (ABNORMAL) COMPREHENSIVE METABOLIC PANEL (12/24/2024 2:12 PM CDT) Only the most recent of3 resultswithin the time period is included. SODIUM 139 136 - 145 mmol/L 12/24/2024 2:53 PM CDT [facility] POTASSIUM 4.2 3.5 - 5.1 mmol/L 12/24/2024 2:53 PM CDT [facility] CHLORIDE 108(H) 98 - 107 mmol/L 12/24/2024 2:53 PM T [facility] CO2 22 22 - 29 mmol/L 12/24/2024 2:53 PM CDT [facility] CALCIUM 8.8 8.8 - 10.2 mg/dL 12/24/2024 2:53 PM CDT [facility] BUN 9 8 - 23 mg/dL 12/24/2024 2:53 PM CDT [facility] CREATININE 0.45(L) 0.67 - 1.17 mg/dL 12/24/2024 2:53 PM CDT [facility] GLUCOSE 81 74 - 99 mg/dL 12/24/2024 2:53 PM T [facility] TOTAL PROTEIN 5.6(L) 6.4 - 8.3 g/dL 12/24/2024 2:53 PM CDT [facility] ALBUMIN 3.1(L) 3.5 - 5.2 g/dL 12/24/2024 2:53 PM T [facility] BILIRUBIN TOTAL 0.3 0.0 - 1.0 mg/dL 12/24/2024 2:53 PM CDT [facility] ALKALINE PHOSPHATASE 69 40 - 129 U/L 12/24/2024 2:53 PM T [facility] AST 14 10 - 50 U/L 12/24/2024 2:53 PM T [facility] ALT 10 <=50 U/L 12/24/2024 2:53 PM [facility] GFR >60 >=60 mL/min/1. 73 sq meter 12/24/2024 2:53 PM T [facility] Comment:eGFR calculated with 2020 CKD-EPI equation. Vegetarian diet, extremely high or low muscle mass, and may affect results. Cystatin C with Glomerular Filtration Rate is a suitable alternative for these patients. ANION GAP 9 9 - 20 mmol/L 12/24/2024 2:53 PM T [facility] Blood Venipuncture / Unknown 12/24/2024 2:12 PM CDT 12/24/2024 2:16 PM CDT us [place] DO CHEMISTRY ORDERABLES Final Resu lt [facility] CLIA # [id number] [address] [place] [address] * MAGNESIUM LEVEL (12/13/2024 9:13 PM CDT) MAGNESIUM 2.0 1.6 - 2.4 mg/dL 12/13/2024 10:00 PM CDT [facility] Blood Venipuncture / Unknown 12/13/2024 9:13 PM CDT 12/13/2024 9:26 PM CDT us Nguyen Bettina Crum MD CHEMISTRY ORDERABLES Final Result Performing Organization Address [facility] Co de Phone Number [facility] CLIA # [id number] [address] [place], [place] [address] * GI PATHOGEN PCR PANEL (12/13/2024 8:48 PM CDT) Pathologist [facility] GI Pathogen PCR panel NOT DETECTED No nucleic acids detected. 12/14/2024 12:34 AM CDT [facility] Stool STOOL SPECIMEN / Unknown Collection / Unknown 12/13/2024 8:48 PM CDT 12/13/2024 10:59 PM CDT Narrative [facility] - 12/14/2024 12:34 AM CDT The Film Array GI Panel is a multiplexed nucleic acid detection test for 22 targets of bacteria, viruses, and parasites in stool that cause infectious diarrhea. Bacteria: Campylobacter C. difficile Plesiomonas shigelloides Salmonella Vibrio Vibrio cholerae Yersinia enterocolitica Enteroaggregative E. Coli (EAEC) Enteropathogenic E. Coli (EPEC) Enterotoxigenic E. Coli (ETEC) Shiga-like toxin-producing E. Coli (STEC) E. Coli O157 Shigella/Enteroinvasive E. 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 Small left pleural effusion. 2. Bronchial wall thickening with bibasilar opacities likely reflecting a combination of atelectasis and/or airspace disease. 3. Splenomegaly. Narrative 12/12/2024 10:01 AM CDT Exam: CT CHEST WO CONTRAST Date/Time of Exam: 12/12/2024 4:24 AM Reason For Exam: Respiratory illness, nondiagnostic xray. Diagnosis: See Reason for Exam. Technique: CT of the chest was performed without the administration of intravenous contrast. Comparison: 09/26/2024. Findings: I agree with the preliminary report. The preliminary report is attached below with possible minor/noncritical modifications. ++++++++++++++++++++ IMPRESSION FINDINGS: Tubes, catheters and devices: Gastrostomy tube in place. Tracheostomy tube in place. Thyroid: Mildly nodular thyroid gland with calcifications. Lungs: Calcified granuloma in the right upper lobe. Bibasilar streaky opacities may represent atelectasis, infiltrate, and/or scarring. Calcified granuloma in the left lower lobe. Bronchial wall thickening is noted diffusely. Pleural spaces: No evidence of pneumothorax. Small left pleural effusion. Heart: No cardiomegaly or pericardial effusion. Lymph nodes: Partially calcified mediastinal and right hilar lymph nodes. Vasculature: No aortic aneurysm. Peripherally calcified distal splenic artery aneurysm is redemonstrated measuring up to 1.3 cm. Liver: Suggestion of hepatomegaly, incompletely imaged. Pancreas: Fatty replacement in the pancreas. Spleen: Splenomegaly up to 15.1 cm. Adrenal glands: Slightly nodular left adrenal gland. Kidneys: Punctate nonobstructive stone in each kidney. Bones/joints: Degenerative change and osteopenia in the bones. Kyphosis. Compression deformity in the lower thoracic spine does not appear acute. Soft tissues: Unremarkable. Other findings: Motion and streak artifact. Procedure Note Darian Albrecht MD - 12/12/2024 Exam: CT CHEST WO CONTRAST Date/Time of Exam: 12/12/2024 4:24 AM Reason For Exam: Respiratory illness, nondiagnostic xray. Diagnosis: See Reason for Exam. Technique: CT of the chest was performed without the administration of intravenous contrast. Comparison: 09/26/2024. Findings: I agree with the preliminary report. The preliminary report is attached below with possible minor/noncritical modifications. ++++++++++++++++++++ IMPRESSION FINDINGS: Tubes, catheters and devices: Gastrostomy tube in place. Tracheostomy tube in place. Thyroid: Mildly nodular thyroid gland with calcifications. Lungs: Calcified granuloma in the right upper lobe. Bibasilar streaky opacities may represent atelectasis, infiltrate, and/or scarring. Calcified granuloma in the left lower lobe. Bronchial wall thickening is noted diffusely. Pleural spaces: No evidence of pneumothorax. Small left pleural effusion. Heart: No cardiomegaly or pericardial effusion. Lymph nodes: Partially calcified mediastinal and right hilar lymph nodes. Vasculature: No aortic aneurysm. Peripherally calcified distal splenic artery aneurysm is redemonstrated measuring up to 1.3 cm. Liver: Suggestion of hepatomegaly, incompletely imaged. Pancreas: Fatty replacement in the pancreas. Spleen: Splenomegaly up to 15.1 cm. Adrenal glands: Slightly nodular left adrenal gland. Kidneys: Punctate nonobstructive stone in each kidney. Bones/joints: Degenerative change and osteopenia in the bones. Kyphosis. Compression deformity in the lower thoracic spine does not appear acute. Soft tissues: Unremarkable. Other findings: Motion and streak artifact. IMPRESSION: 1. Small left pleural effusion. 2. Bronchial wall thickening with bibasilar opacities likely reflecting a combination of atelectasis and/or airspace disease. 3. Splenomegaly. us Salvador Torres DO CT ORDERABLES Final Result * EKG 12-LEAD (12/12/2024 3:17 AM CDT) 12/12/2024 3:17 AM CDT Narrative [facility] - 12/12/2024 6:32 AM CDT [address] [address] Test Date: 2024-12-12 Pat Name: DUKE ALARCON Department: 11 Room: 05 05 Gender: Male Practice Nurse: [id number] : 1955 Requested By: Order Number: [id number] Jaylin MD: Duke Yarbrough Measurements Intervals [place] Rate: 88 P: 40 TN: 170 QRS: -15 QRSD: 94 T: 31 QT: 370 QTc: 447 Interpretive Statements Normal sinus rhythm Normal ECG Electronically Signed On 12-12-2024 6:32:50 CDT by Duke Yarbrough Procedure Note Duke Yarbrough MD - 12/12/[address] [address] Test Date: 2024-12-12 Pat Name: DUKE ALARCON Department: 11 Room: 05 Gender: Male Practice Nurse: [id number] : 1955 Requested By: Order Number: [id number] Reading MD: Duke Yarbrough Measurements Intervals [place] Rate: 88 P: 40 TN: 170 QRS: -15 QRSD: 94 T: 31 QT: 370 QTc: 447 Interpretive Statements Normal sinus rhythm Normal ECG Electronically Signed On 12-12-2024 6:32:50 CDT by Duke Yarbrough us Protocol [facility] Emergency MD ECG ORDERABLES Final Result Performing Organization Address City/State/[facility] Co de Phone Number [facility] Refer to clinic/hospital department * (ABNORMAL) RESPIRATORY PATHOGEN PCR PANEL (11/28/2024 6:00 AM CDT) Pathologist [facility] COVID-19 PCR NOT DETECTED Not Detected 11/28/2024 7:05 AM CDT [facility] Respiratory syncytial virus by PCR DETECTED(A) Not Detected 11/28/2024 7:05 AM CDT [facility] Upper Respiratory ENTIRE NASOPHARYNX / Unknown Collection / Unknown 11/28/2024 6:00 AM CDT 11/28/2024 6:12 AM CDT Narrative [facility] - 11/28/2024 7:05 AM CDT The Film Array Respiratory Panel (RP2.1) is a multiplex nucleic acid detection test for 22 targets. Viruses: Adenovirus Coronavirus HKU1, NL63, 229E, and OC43 COVID-19/Severe Acute Respiratory Syndrome Coronavirus 2 Influenza A with the following subtypes: H1, H1-2009, and H3 Influenza B Human Metapneumovirus Parainfluenza virus 1, 2, 3, and 4 Respiratory Syncytial virus (RSV) Rhinovirus/Enterovirus (cannot differentiate due to genetic similarities) Bacteria: Bordetella pertussis Bordetella parapertussis Chlamydophila pneumoniae Mycoplasma pneumoniae us Jorge Little MD MICROBIOLOGY - GENERAL ORDERA BLES Final Result [facility] # [id number] [address] [place] [address] * (ABNORMAL) BASIC METABOLIC PANEL (11/28/2024 6:00 AM CDT) SODIUM 140 136 - 145 mmol/L 11/28/2024 6:50 AM T [facility] POTASSIUM 3.7 3.5 - 5.1 mmol/L 11/28/2024 6:50 AM [facility] CHLORIDE 107 98 - 107 mmol/L 11/28/2024 6:50 AM [facility] CO2 21(L) 22 - 29 mmol/L 11/28/2024 6:50 AM [facility] CALCIUM 9.6 8.8 - 10.2 mg/dL 11/28/2024 6:50 AM [facility] BUN 16 8 - 23 mg/dL 11/28/2024 6:50 AM [facility] CREATININE 0.42(L) 0.67 - 1.17 mg/dL 11/28/2024 6:50 AM [facility] GLUCOSE 117(H) 74 - 99 mg/dL 11/28/2024 6:50 AM [facility] GFR >60 >=60 mL/min/1. 73 sq meter 11/28/2024 6:50 AM [facility] Comment:eGFR calculated with 2020 CKD-EPI equation. Vegetarian diet, extremely high or low muscle mass, and may affect results. Cystatin C with Glomerular Filtration Rate is a suitable alternative for these patients. ANION GAP 12 9 - 20 mmol/L 11/28/2024 6:50 AM CDT [facility] Blood Venipuncture / Unknown 11/28/2024 6:00 AM CDT 11/28/2024 6:15 AM CDT us Jorge Little MD CHEMISTRY ORDERABLES Final Re sult Performing Organization Address [facility] Co de Phone Number [facility] CLIA # [id number] [address] [address] * (ABNORMAL) HEMOGLOBIN A1C (10/09/2024 4:00 AM CDT) [facility] HEMOGLOBIN A1C 6.0(H) <=5.6 % 10/10/2024 10:54 AM CDT [facility] EST. AVG GLUCOSE, A1C 126 mg/dL 10/10/2024 10:54 AM CDT [facility] Blood Collection / Unknown 10/09/2024 4:00 AM CDT 10/09/2024 5:22 AM CDT Narrative [facility] - 10/10/2024 10:54 AM CDT HGB A1C INTERPRETATION NORMAL: <5.7% PRE-DIABETES: 5.7 - 6.4% DIABETES: 6.5% OR GREATER us Hamilton Sheffield DO CHEMISTRY ORDERABLES Final R esult Performing Organization Address [facility] Co de Phone Number [facility] CLIA # [id number] [address] [address] * POC OCCULT BLOOD 1 CARD (07/09/2024 6:51 PM 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) [facility] OCCULT BLOOD 1 CARD POC Negative Negative INTERNAL KIT QC POC Pass Pass CARD LOT NUMBER POC [id number] CARD EXPIRATION DATE POC 11/03 DEVELOPER [address] NUMBER POC [id number] DEVELOPER EXPIRATION DATE POC 03/05 Stool STOOL SPECIMEN / Unknown 07/09/2024 6:51 PM 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 Allan Anderson DO POINT OF CARE TESTING Final Result * (ABNORMAL) LIPID PANEL (02/28/2023 11:07 PM CDT) CHOLESTEROL 120 <200 mg/dL 03/01/2023 12:33 AM CDT [facility] TRIGLYCERIDE 134 <150 mg/dL 03/01/2023 12:33 AM CDT [facility] HDL 30(L) 40 - 59 mg/dL 03/01/2023 12:33 AM CDT [facility] LDL CALCULATED 63 <100 mg/dL 03/01/2023 12:33 AM CDT [facility] NON-HDL CHOLESTEROL 90 <130 mg/dL 03/01/2023 12:33 AM CDT [facility] Blood Venipuncture / Unknown 02/28/2023 11:07 PM CDT 02/28/2023 11:55 PM CDT Narrative [facility] - 03/01/2023 12:33 AM CDT TOTAL CHOLESTEROL mg/dL Desirable <200 Borderline high 200-239 High >=240 TRIGLYCERIDES mg/dL Normal <150 Borderline high 150-199 High 200-499 Very high >=500 HDL CHOLESTEROL mg/dL Low <40 Normal 40-59 Desirable >=60 NON HDL CHOLESTEROL mg/dL Optimal <130 Near Optimal 130-159 Borderline High 160-189 Very High >=190 CALCULATED LDL mg/dL LDL <70, OPTIMAL if have Atherosclerotic cardiovascular disease (ASCVD) or intermediate or higher (>7.5%) 10 year risk of ASCVD including most adults with diabetes. LDL <100, Optimal in adult patients with low (<7.5%) 10 year ASCVD risk LDL 100-160, Suboptimal LDL >160, High LDL >190, Very high ATPIII Guidelines Reference Ranges for Lipid Panels (NCEP/AMA) . Kelin Cleveland MD CHEMISTRY ORDERABLES Final Resu lt [facility] CLIA # [id number] [address] [facility] [place] [address] * MICROALBUMIN/CREATININE RATIO, RANDOM UR (11/30/2022 12:49 PM CDT) Creatinine, Urine 88 20 - 320 mg/dL [facility] MICROALBUMIN, URINE 0.4 See Note: mg/dL [email or web address] Comment: Reference Range: Reference Range Not established MICROALBUMIN/CREAT RATIO, UR 5 <30 mcg/mg creat [facility] Comment: The ADA defines abnormalities in albumin excretion as follows: Albuminuria Category Result (mcg/mg creatinine) Normal to Mildly increased <30 Moderately increased 30-299 Severely increased > OR = 300 The ADA recommends that at least two of three specimens collected within a 3-6 month period be abnormal before considering a patient to be within a diagnostic category. FASTING:NO FASTING: NO Test Performed at: [facility] [address] [place] [address] Migue Sanchez MD Urine URINE SPECIMEN OBTAINED BY CLEAN CATCH PROCEDURE / Unknown 11/30/2022 12:49 PM CDT 11/30/2022 12:50 PM CDT Aristeo Rebollar MD URINE ORDERABLES Final Res ult [facility] [phone] [facility] [address] [place] [phone] from Last 3 Months or Most Recently Relevant to Health Maintenance Additional Health Concerns Infection Onset Date Last Indicated Multi Drug Resistant Organis m ([facility]DRO) Comment:10/03/24: Sputum (Pseudomonas aeruginosa) 10/03/202410/03 [employer] Comment:10/03/24: Sputum (Pseudomonas aeruginosa) 10/03/202410/[address] [facility] HU[employer] GOLD PLUS HMO 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 Advance Directive POA 10/10/2024 10:32 AM A dvance Directive POA Advance Directive POA 10/03/2024 2:46 PM A dvance Directive POA * Full Code (Latest Code Status on File) Date Activated Date Inactivated Comments 09/26/2024 1:27 AM 10/08/2024 7:21 PM * Full Code Date Activated Date Inactivated Comments 09/07/2024 3:58 AM 09/12/2024 6:45 PM * Full Code Date Activated Date Inactivated Comments 07/12/2024 3:31 PM 07/26/2024 3:24 PM * Full Code Date Activated Date Inactivated Comments 07/09/2024 7:51 PM 07/12/2024 3:31 PM * Full Code Date Activated Date Inactivated Comments 04/18/2023 2:06 PM 05/04/2023 5:10 PM Care Teams Drying Oven Tender Relationship Specialty Start Date End Date Charles Clancy DO [address] [place] [id number] PCP - General Family Practice 11/07/24
--- OUTSIDE RECORDS SUMMARY | 2025-02-09 15:08 | XMS_ITS | Encounter Summary ---
Author Organization [facility] Address [address] [place] [address] Care Team Providers Care Nut Roaster Name Role Phone Clancy, Charles Rock DO Primary Care Provider [phone] Encounter Details Date Type Department Care Team (Late st Contact Info) Description 04/05/[address] [facility] Laboratory Services [address] [place] [id number] Wanda Hdez MD [address] [place] [address] Social History Tobacco Use Types Packs/Day Years Used Date Smoking Tobacco: Former Cigarettes Q uit: 1998 Smokeless Tobacco: Former Snuff, Chew Alcohol Use Standard Drinks/Week Comments Yes 0 (1 standard drink = 0.6 oz pur e alcohol) socially maybe once a month Sex and Gender Information Value Date Recorded Sex Assigned at Not on file Legal Sex Male 3:17 AM SETTLEMENT AGENT Gender Identity Not on file Sexual Orientation Not on file documented as of this encounter Plan of Treatment Not on file documented as of this encounter Procedures Procedure Name Priority Date/Time Associated Diagnosis Comments DIFFERENTIAL, MANUAL Routine 04/05/2023 8:35 PM CDT CBC WITH DIFFERENTIAL Routine 04/05/2023 8:35 PM CDT VANCOMYCIN LEVEL TROUGH Routine 04/05/2023 8:35 PM CDT COMPREHENSIVE METABOLIC PANEL Routine 04/05/2023 8:35 PM CDT documented in this encounter Results * MANUAL DIFFERENTIAL (04/05/2023 8:35 PM CDT) [facility] PLATELET EST. Increased 04/05/2023 11:42 PM CDT [facility] ANISOCYTOSIS 2+ /hpf 04/05/2023 11:42 PM CDT [facility] POLYCHROMASIA 1+ /hpf 04/05/2023 11:42 PM CDT [facility] Blood Collection / Unknown 04/05/2023 8:35 PM CDT 04/05/2023 11:01 PM CDT us Wanda Hdez MD HEMATOLOGY ORDERABLES COM Final Result [facility] CLIA # [id number] [address] [place] [address] * (ABNORMAL) CBC WITH DIFFERENTIAL (04/05/2023 8:35 PM CDT) [facility] WBC 10.8 4.8 - 10.8 K/uL 04/05/2023 11:42 PM CDT [facility] RBC 3.60(L) 4.60 - 6.20 M/uL 04/05/2023 11:42 PM CDT [facility] HEMOGLOBIN 10.4(L) 14.0 - 18.0 g/dL 04/05/2023 11:42 PM CDT [facility] HEMATOCRIT 34.9(L) 41.0 - 53.0 % 04/05/2023 11:42 PM CDT [facility] MCV 96.9 84.0 - 103.0 fL 04/05/2023 11:42 PM CDT [facility] MCH 28.9 27.0 - 34.0 pg 04/05/2023 11:42 PM CDT [facility] MCHC 29.8(L) 30.0 - 35.0 g/dL 04/05/2023 11:42 PM [facility] RDW 20.5(H) 11.0 - 14.5 % 04/05/2023 11:42 PM [facility] RDW-STDEV 72.0(H) 37.0 - 54.0 fL 04/05/2023 11:42 PM [facility] PLATELETS 463(H) 140 - 440 K/uL 04/05/2023 11:42 PM [facility] MPV 10.5 8.9 - 12.8 fL 04/05/2023 11:42 PM [facility] NEUTROPHILS 80(H) 42 - 75 % 04/05/2023 11:42 PM [facility] LYMPHOCYTES 11(L) 24 - 44 % 04/05/2023 11:42 PM [facility] MONOCYTES 7 2 - 10 % 04/05/2023 11:42 PM [facility] EOSINOPHILS 0 0 - 7 % 04/05/2023 11:42 PM [facility] BASOPHILS 0 0 - 1 % 04/05/2023 11:42 PM [facility] IMMATURE GRANULOCYTES 2 0 - 2 % 04/05/2023 11:42 PM [facility] NEUTROPHIL ABSOLUTE 8.64(H) 2.00 - 8.00 K/uL 04/05/2023 11:42 PM [facility] LYMPHOCYTE ABSOLUTE 1.20 1.20 - 4.00 K/uL 04/05/2023 11:42 PM [facility] MONOCYTE ABSOLUTE 0.77(H) 0.10 - 0.60 K/uL 04/05/2023 11:42 PM [facility] EOSINOPHIL ABSOLUTE 0.02 0.00 - 0.70 K/uL 04/05/2023 11:42 PM [facility] BASOPHILS ABSOLUTE 0.02 0.00 - 0.20 K/uL 04/05/2023 11:42 PM [facility] IMMATURE GRANULOCYTES ABSOLUTE 0.19(H) 0.00 - 0.10 K/uL 04/05/2023 11:42 PM CDT [facility] Blood Collection / Unknown 04/05/2023 8:35 PM CDT 04/05/2023 11:01 PM CDT us Wanda Hdez MD HEMATOLOGY ORDERABLES Final Res ult Performing Organization Address [facility]/ZIP Co de Phone Number [facility] CLIA # [id number] [address] [address] [place], [place] [address] * VANCOMYCIN LEVEL TROUGH (04/05/2023 8:35 PM CDT) Pathologist [facility] VANCOMYCIN, TROUGH 12.5 10.0 - 17.0 ug/mL 04/05/2023 11:33 PM CDT [facility] Blood Collection / Unknown 04/05/2023 8:35 PM CDT 04/05/2023 10:59 PM CDT us Wanda Hdez MD CHEMISTRY ORDERABLES Final Resu lt Performing Organization Address [facility] Co de Phone Number [facility] CLIA # [id number] [address] [address] * (ABNORMAL) COMPREHENSIVE METABOLIC PANEL (04/05/2023 8:35 PM CDT) SODIUM 147(H) 136 - 145 mmol/L 04/05/2023 11:36 PM CDT [facility] POTASSIUM 2.6(L) 3.5 - 5.1 mmol/L 04/05/2023 11:36 PM CDT [facility] CHLORIDE 109(H) 98 - 107 mmol/L 04/05/2023 11:36 PM CDT [facility] CO2 27 22 - 29 mmol/L 04/05/2023 11:36 PM [facility] CALCIUM 7.7(L) 8.8 - 10.2 mg/dL 04/05/2023 11:36 PM [facility] BUN 23 8 - 23 mg/dL 04/05/2023 11:36 PM [facility] CREATININE 0.31(L) 0.67 - 1.17 mg/dL 04/05/2023 11:36 PM [facility] GLUCOSE 220(H) 74 - 99 mg/dL 04/05/2023 11:36 PM [facility] TOTAL PROTEIN 5.1(L) 6.4 - 8.3 g/dL 04/05/2023 11:36 PM [facility] ALBUMIN 2.8(L) 3.5 - 5.2 g/dL 04/05/2023 11:36 PM [facility] BILIRUBIN TOTAL 0.3 0.2 - 1.0 mg/dL 04/05/2023 11:36 PM [facility] ALKALINE PHOSPHATASE 80 40 - 129 U/L 04/05/2023 11:36 PM [facility] AST 31 10 - 50 U/L 04/05/2023 11:36 PM [facility] ALT 51(H) <=50 U/L 04/05/2023 11:36 PM [facility] GFR >60 >=60 mL/min/1. 73 sq meter 04/05/2023 11:36 PM [facility] Comment:eGFR calculated with 2020 CKD-EPI equation. Vegetarian diet, extremely high or low muscle mass, and may affect results. Cystatin C with Glomerular Filtration Rate is a suitable alternative for these patients. ANION GAP 11 9 - 20 mmol/L 04/05/2023 11:36 PM [facility] Blood Collection / Unknown 04/05/2023 8:35 PM CDT 04/05/2023 10:59 PM CDT Wanda Hdez MD CHEMISTRY ORDERABLES Final Resu lt [facility] # [id number] [address] [place] [address] [place] [address] documented in this encounter Visit Diagnoses Not on filedocumented in this encounter Additional Health Concerns Infection Onset Date Last Indicated Resolved Time R/O C. diff 04/19/2023 04/19/2023 04/19/2023 3:44 AM CDT R/O COVID-19 07/09/2024 07/09/2024 07/09/2024 5:41 PM SETTLEMENT AGENT R/O GI Pathogen 07/09/2024 07/09/2024 07/10/2024 8 :40 AM SETTLEMENT AGENT C Diff 07/09/2024 07/09/2024 09/13/2024 1:16 AM SETTLEMENT AGENT [facility] ([facility]) Comment:[facility] sputum 07/19/24 , negative MDRO sputum 09/08/24 ls 07/19/2024 07/19/2024 2:20 PM SETTLEMENT AGENT R/O COVID-19 08/08/2024 08/08/2024 08/08/2024 3:12 AM SETTLEMENT AGENT R/O COVID-19 09/07/2024 09/07/2024 09/07/2024 1:57 AM SETTLEMENT AGENT Respiratory Syncytial Virus (RSV) 09/07/2024 025 09/21/2024 1:16 AM CDT R/O Respiratory 09/25/2024 09/25/2024 09/26/2024 1 :06 AM CDT Respiratory Syncytial Virus (RSV) 09/25/2024 025 10/17/2024 1:16 AM CDT [facility] ([facility]) Comment:10/03/24: Sputum (Pseudomonas aeruginosa) 10/03/2024 10/03/2024 COMPUTER METHODS ANALYST Comment:10/03/24: Sputum (Pseudomonas aeruginosa) 10/03/2024 10/07/2024 R/O Respiratory 11/28/2024 11/28/2024 11/28/2024 7 :05 AM CDT Respiratory Syncytial Virus (RSV) 11/28/2024 025 12/12/2024 1:16 AM CDT R/O GI Pathogen 12/13/2024 12/13/2024 12/14/2024 1 2:34 AM CDT documented as of this encounter Care Teams Nut Roaster Relationship Specialty Start Date End Date Charles Clancy DO [address] [place] [address] PCP - General Family Practice 11/07/24 documented as of this encounter
--- NOTE | 2025-02-09 15:17 | XRR_ITS ---
PROCEDURE INFORMATION: Exam: XR Chest Exam date and time: 02/09/2025 3:39 PM Age: 69 years old Clinical indication: Cough; Additional info: Excessive sputum in trach; Cough. TECHNIQUE: Imaging protocol: Radiologic exam of the chest. Views: 1 view. COMPARISON: No relevant prior studies available. FINDINGS: Tubes, catheters and devices: Tracheostomy tube is in position. Lungs: Pulmonary vessels are within normal limits. Left basilar linear densities. Right basilar infiltrate. Pleural spaces: No pneumothorax. Heart/Mediastinum: Cardiomediastinal silhouette is within normal limits. Bones/joints: Unremarkable. XR/XR chest 1V portable [address] IMPRESSION: 1. Right basilar infiltrate. Finding could represent pneumonic process. Imaging follow-up until resolution is advised. 2. Left basilar linear densities. Finding could represent scarring or atelectasis.
--- NOTE | 2025-02-09 15:25 | W.ED.SOB ---
HPI - SOB/Dyspnea General: Chief Complaint: Shortness of Breath/Dyspnea Stated Complaint: EXCESSIVE SPUTUM IN TRACH Time Seen by Provider: 02/09/25 15:10 History of Present Illness: HPI Narrative: 69-year-old male sent in from the shelter with concerns of excess secretions from his trach EMS reports that the care center is also concerned about pneumonia however patient reports he had an x-ray yesterday. Associated symptoms: Deny chest pain, fever(s) or palpitations Related Data Home Medications ?Medication ?Instructions ?Recorded ?Confirmed acetaminophen 325 mg tablet 650 mg PO Q4H PRN pain or fever 01/14/25 02/06/25 (Tylenol) allopurinol 100 mg tablet 100 mg PO DAILY 01/14/25 02/06/25 alogliptin 25 mg tablet (Nesina) 25 mg PO DAILY 01/14/25 02/06/25 alprazolam 1 mg tablet 1 mg PO .at bedtime 01/14/25 02/06/25 alprazolam 1 mg tablet 1 mg PO DAILY PRN anxiety 01/14/25 02/06/25 amiodarone 200 mg tablet 200 mg PO DAILY 01/14/25 02/06/25 apixaban 5 mg tablet (Eliquis) 5 mg PO BID 01/14/25 02/06/25 ascorbic acid (vitamin C) 250 mg 250 mg PO DAILY 01/14/25 02/06/25 tablet atorvastatin 10 mg tablet (Lipitor) 10 mg PO DAILY 01/14/25 02/06/25 bisacodyl 10 mg rectal suppository 10 mg ND DAILY PRN constipation 01/14/25 02/06/25 bisacodyl 5 mg tablet,delayed 20 mg PO DAILY PRN constipation 01/14/25 02/06/25 release buspirone 15 mg tablet 15 mg PO TID 01/14/25 02/06/25 carboxymethylcellulose sodium 1 % 2 drp ophthalmic (eye) BID PRN dry 01/14/25 02/06/25 eye drops (Artificial Tears eye(s) (carboxymethylcellulose)) famotidine 20 mg tablet (Pepcid AC) 20 mg PO DAILY 01/14/25 02/06/25 ferrous sulfate 325 mg (65 mg 325 mg PO DAILY 01/14/25 02/06/25 iron) tablet,delayed release finasteride 5 mg tablet 5 mg PO DAILY 01/14/25 02/06/25 loratadine 10 mg tablet 10 mg PO DAILY 01/14/25 02/06/25 magnesium hydroxide 400 mg/5 mL 30 ml PO DAILY PRN constipation 01/14/25 02/06/25 oral suspension (Milk of Magnesia) metformin 500 mg tablet,extended 500 mg PO DAILY 01/14/25 02/06/25 release 24 hr (Glucophage XR) metoprolol tartrate 25 mg tablet 12.5 mg PO BID 01/14/25 02/06/25 mineral oil (Fleet Mineral Oil 118 ml ND DAILY PRN constipation 01/14/25 02/06/25 enema) silodosin 4 mg capsule 4 mg PO DAILY 01/14/25 02/06/25 Previous Rx's ?Medication ?Instructions ?Recorded pregabalin 50 mg capsule (Lyrica) 50 mg PO TID #90 caps 01/08/25 amoxicillin 875 mg-potassium 1 tab PO BID #14 tabs 02/09/25 clavulanate 125 mg tablet Allergies Allergy/AdvReac Type Severity Reaction Status Date / Time succinylcholine Allergy Unknown Verified 01/02/25 10:04 Review of Systems Const: Denies: fever(s) or chills Card: Denies: chest pain or palpitations Resp: Reports: other (Please see HPI) PFSH ED PFSH: Medical History (Updated 02/09/25 @ 16:31 by Jorge Moreno DO) Anemia GERD without esophagitis Weakness Hyperlipidemia Dysphonia Muscle wasting and atrophy, not elsewhere classified, right lower leg Muscle wasting and atrophy, not elsewhere classified, left lower leg Essential hypertension Major depressive disorder, recurrent, unspecified Generalized anxiety disorder 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 Surgical History H/O colostomy H/O gastrostomy H/O tracheostomy Social History Smoking and tobacco/nicotine status: unknown if used tobacco/nicotine Physical Exam Const: COMMON NORMALS: no acute distress and alert HENMT: OTHER: Trach in place Resp: COMMON NORMALS: normal respiratory effort EFFORT & INSPECTION: Yes able to speak in complete sentences AUSCULTATION: bronchial breath sounds Cardio: COMMON NORMALS: regular rate and regular rhythm RATE: regular rate RHYTHM: regular rhythm Neuro: SENSORIUM/ORIENTATION: Yes alert Psych: COMMON NORMALS: mental status grossly normal, cooperative and normal affect Course Vital Signs: Vital signs: Vital Signs Temperature 99.0 F 02/09/25 15:08 Pulse Rate 82 02/09/25 15:48 Respiratory Rate 18 02/09/25 15:48 Blood Pressure 94/64 02/09/25 15:46 Pulse Oximetry 97 02/09/25 15:48 Oxygen Delivery Me thod Room Air 02/09/25 15:48 MDM - SOB/Dyspnea Medical Decision Making Patient's x-ray shows questionable early pneumonia. Due to patient's risk factors I will start him on Augmentin. Patient's vitals and exam showed no significant findings. Patient will be transferred back to the care center with follow-up with primary care provider as needed. Lab Data Labs/Radiology: Radiology Impressions Chest X-Ray 02/09/25 15:17 IMPRESSION: 1. Right basilar infiltrate. Finding could represent pneumonic process. Imaging follow-up until resolution is advised. 2. Left basilar linear densities. Finding could represent scarring or atelectasis. All radiology interpretation(s) finalized by discharge Discharge Plan Discharge Patient Disposition: Home Clinical Impression: Tracheostomy care, Pneumonia Condition: Stable Prescriptions: New amoxicillin-pot clavulanate 875-125 mg tablet 1 tab PO BID Qty: 14 0RF No Action acetaminophen [Tylenol] 325 mg tablet 650 mg PO Q4H PRN (Reason: pain or fever) atorvastatin [Lipitor] 10 mg tablet 10 mg PO DAILY alprazolam 1 mg tablet 1 mg PO DAILY PRN (Reason: anxiety) alprazolam 1 mg tablet 1 mg PO .at bedtime amiodarone 200 mg tablet 200 mg PO DAILY allopurinol 100 mg tablet 100 mg PO DAILY mineral oil [Fleet Mineral Oil] Enema 118 ml ND DAILY PRN (Reason: constipation) Rx Instructions: discard any unused portion famotidine [Pepcid AC] 20 mg tablet 20 mg PO DAILY magnesium hydroxide [Milk of Magnesia] 400 mg/5 mL suspension 30 ml PO DAILY PRN (Reason: constipation) ascorbic acid (vitamin C) 250 mg tablet 250 mg PO DAILY bisacodyl 10 mg suppository 10 mg ND DAILY PRN (Reason: constipation) bisacodyl 5 mg tablet,delayed release (DR/EC) 20 mg PO DAILY PRN (Reason: constipation) ferrous sulfate 325 mg (65 mg iron) tablet,delayed release (DR/EC) 325 mg PO DAILY metformin [Glucophage XR] 500 mg tablet extended release 24 hr 500 mg PO DAILY finasteride 5 mg tablet 5 mg PO DAILY loratadine 10 mg tablet 10 mg PO DAILY buspirone 15 mg tablet 15 mg PO TID metoprolol tartrate 25 mg tablet 12.5 mg PO BID silodosin 4 mg capsule 4 mg PO DAILY Rx Instructions: must administer with a meal/food Eliquis 5 mg tablet 5 mg PO BID alogliptin [Nesina] 25 mg tablet 25 mg PO DAILY Artificial Tears (cmc) 1 % drops 2 drp ophthalmic (eye) BID PRN (Reason: dry eye(s)) pregabalin [Lyrica] 50 mg capsule 50 mg PO TID Qty: 90 5RF Discharge Orders: Discharge ED (Routine); Ordered 02/09/25 Ordered By: Jorge Moreno Referrals: Georgi Foy DO [Primary Care Provider, Family Practice] Discharge Diet: Usual diet Discharge Activity: Increase activity as tolerated Patient Instructions: Tracheostomy Care (ED), Pneumonia (ED), Opioid Safety, Pain Management, Patient Portal & Judy Instructions Activity Restrictions/Additional Instructions: Please follow-up primary care provider towards the end of the week for recheck. Print Language: Armenian Coding Level of Care Code ED Dynamicist for Jana Blake
[2025-02-09 15:46] VITALS: BP 94/64; PULSE 88; O2SAT 94
[2025-02-09 15:48] VITALS: PULSE 82; RESP 18; O2SAT 97
== END 2025-02-09 17:28 | disposition home or self-care (01) ==
PROVIDERS: Emergency Provider Student in an Organized Health Care Education/Training Program; PCP Family Medicine
DX: Z43.0 Encounter for attention to tracheostomy (principal); J18.9 Pneumonia, unspecified organism; Z79.84 Long term (current) use of oral hypoglycemic drugs; Z79.01 Long term (current) use of anticoagulants; E78.5 Hyperlipidemia, unspecified; I10 Essential (primary) hypertension
CPT/HCPCS: 71045; 87070; 87077; 87186; 87205; 94640; 94799; 99284; J9999